=== PATIENT | female | born 1970 | race Hispanic/Latino ===

== ENCOUNTER 2017-04-01 07:01 | Inpatient (IN) | payer MEDICARE ==
--- NOTE | 2017-04-01 07:39 | C.PDOC ---
History Of Present Illness Patient with a PMHx of HIV and IVDA, reports 4-5 week history of wounds to the bilateral lower extremities. The patient reports that she injected heroin in the legs and developed painful draining wounds afterwards. Denies fever, trauma , travel. Time Seen by Provider: 04/01/17 07:34 Chief Complaint (Nursing): Abnormal Skin Integrity History Per: Patient History/Exam Limitations: no limitations Onset/Duration Of Symptoms: Days Current Symptoms Are (Timing): Still Present Past Medical History Reviewed: Historical Data, Nursing Documentation, Vital Signs Vital Signs: Last Vital Signs Temp 98.2 F 04/01/17 15:30 Pulse 64 04/01/17 15:30 Resp 20 04/01/17 15:30 BP 126/77 04/01/17 15:30 Pulse Ox 98 04/01/17 15:30 - Medical History PMH: Anxiety, Bronchitis, HIV (HIV postive almost 20 yrs), Pneumonia Denies: Chronic Kidney Disease - [facility] Procedures DRAINAGE OF RIGHT LOWER ARM SKIN, EXTERNAL APPROACH (03/01/15) DX ULTRASOUND NEC (06/14/14) MEDS MGMT FOR SUBSTANCE ABUSE TREATMENT, METHADONE MAINT (03/01/15) OTHER SKIN & SUBQ I D (06/14/14) Family History: States: No Known Family Hx - Social History Hx Tobacco Use: Yes Hx Alcohol Use: Yes Hx Substance Use: Yes (Cocaine,Heroin) - Immunization History Hx Tetanus Toxoid Vaccination: No Hx Influenza Vaccination: No Hx Pneumococcal Vaccination: No Review Of Systems Except As Marked, All Systems Reviewed And Found Negative. Constitutional: Negative for: Fever Respiratory: Negative for: Shortness of Breath Gastrointestinal: Negative for: Nausea, Vomiting Skin: Positive for: Other (wounds to B/L lower extremities). Negative for: Rash Neurological: Negative for: Weakness, Numbness Physical Exam - Physical Exam Appears: Non-toxic, No Acute Distress Skin: Warm, Dry, No Rash Head: Atraumatic, Normacephalic Eye(s): bilateral: Normal Inspection, PERRL, EOMI Oral Mucosa: Moist Neck: Normal ROM, Supple Chest: Symmetrical Cardiovascular: Rhythm Regular, No Friction Rub, No Murmur Respiratory: Normal Breath Sounds, No Accessory Muscle Use, No Wheezing Gastrointestinal/Abdominal: Soft, No Tenderness Extremity: Capillary Refill (<2 seconds), No Deformity, Other (Right lower extremity: medial ankle with 105cm wound, foul smelling, draining with purulent material. (+)erythema, (+)swelling, (+)tenderness, (+)nechrotic tissue with tunneling. Left lower extremity: 11x6cm wound to the left posterioir calf, foul smelling, draining with purulent material. (+)erythema, (+)swelling, (+) tenderness, (+)nechrotic tissue with tunneling. ) Pulses: Left Dorsalis Pedis: Normal, Right Dorsalis Pedis: Normal Neurological/Psych: Oriented x3, Normal Speech, Normal Motor, Normal Sensation Gait: Steady ED Course And Treatment - Laboratory Results Result Diagrams: 04/01/17 08:16 04/01/17 08:16 O2 Sat by Pulse Oximetry: 100 (on RA) Pulse Ox Interpretation: Normal Medical Decision Making Medical Decision Making: Plan: * VBG * CMP * CBC, ESR * XR: Tib/Fib * Morphine, Toradol * Blood Culture * Reassess and Disposition blood and wound cultures collected. Zosyn and Vancomycin IV ordered. Case discussed with Dr Peck. Agrees with plan and states to discuss case w/ Enrique Juarez. 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 I have reviewed the chart and agree that the record accurately reflects my personal performance of the history, physical exam, medical decision making, and the department course for this patient. I have also personally directed, reviewed, and agree with the discharge instructions and disposition.
[2017-04-01 08:24] LABS: BASO % 0.2 % (0.0-2.0); EOS % 0.1 % (0.0-4.0); HEMOGLOBIN 11.2 g/dL (11.0-16.0); LYMPH # 0.9 K/uL (1.0-4.3); LYMPH % 15.9 % (20.0-40.0); MEAN CELL VOLUME 80.6 fL (81.0-99.0); MEAN CORPUSCULAR HEMOGLOBIN 27.5 pg (27.0-31.0); MEAN CORPUSCULAR HGB CONC 34.1 g/dL (33.0-37.0); MONO # 0.3 K/uL (0.0-0.8); MONO % 4.6 % (0.0-10.0); NEUT # 4.7 K/uL (1.8-7.0); NEUT % 79.2 % (50.0-75.0); RBC 4.1 Mil/uL (3.80-5.20); RED CELL DISTRIBUTION WIDTH 18.1 % (11.5-14.5); WHITE BLOOD COUNT 5.9 K/uL (4.8-10.8)
[2017-04-01 08:27] LABS: VENOUS BLOOD GAS BASE EXCESS 7.6 mmol/L (0.0-2.0); VENOUS BLOOD GAS PCO2 52 mmHg (40-60); VENOUS BLOOD GAS PO2 18 mm/Hg (30-55); VENOUS BLOOD PH 7.42 (7.32-7.43)
[2017-04-01] MEDS ORDERED: Morphine 4 MG/ML VIAL ONE (08:28)
--- NOTE | 2017-04-01 08:28 | RAD ---
PROCEDURE: Radiographs of the bilateral Tibiae and Fibulae. HISTORY: bilateral wound to the tib/fib, r/o foreign body COMPARISON: None available. TECHNIQUE: Frontal and lateral views obtained. FINDINGS: BONES: RIGHT TIBIA: No fracture or destructive lesion. LEFT TIBIA: No fracture or destructive lesion. JOINT SPACES: RIGHT TIBIA: Normal. LEFT TIBIA: Normal. SOFT TISSUES: RIGHT TIBIA: Normal. LEFT TIBIA: There is a soft tissue wound along the distal medial aspect of the left lower extremity. No radiopaque foreign body is identified. OTHER FINDINGS: None. IMPRESSION: Cutaneous wound along distal medial left lower extremity. No radiopaque foreign body. No acute fracture.
[2017-04-01 08:45] LABS: ALBUMIN 3.7 g/dL (3.5-5.0); ALT/SGPT 20 U/L (9-52); AST/SGOT 29 U/L (14-36); BLOOD UREA NITROGEN 6 mg/dL (7-17); CALCIUM 8.4 mg/dl (8.6-10.4); GFR AFRICAN-AMERICAN > 60; GFR NON-AFRICAN AMERICAN > 60
[2017-04-01 08:59] LABS: ALB/GLOB RATIO 0.5 (1.0-2.1)
[2017-04-01] MEDS ORDERED: Sodium Chloride 0.9% 1,000 ML IV ONE (09:27)
[2017-04-01] MEDS ORDERED: Sodium Chloride 0.9% 1,000 ML ONE (10:08)
[2017-04-01] MEDS ORDERED: Piperacillin/Tazobact 3.375 gm 100 ML IV STA (10:27)
[2017-04-01] MEDS ORDERED: Piperacill/Tazo 3.375gm in Dex 3.375 GM/50 ML BAG IVPB ONE (10:45)
[2017-04-01] MEDS ORDERED: Vancomycin 1 gm/NS 200 ml 1 GM/200 ML BAG IVPB ONE (11:00)
[2017-04-01] MEDS ORDERED: HYDROmorphone 1 mg/ml ISec IVP STA (12:06)
--- NOTE | 2017-04-01 17:49 | CP.PCM.CON ---
History of Present Illness - History of Present Illness History of Present Illness: Patient with a PMHx of HIV and IVDA, reports 4-5 week history of wounds to the bilateral lower extremities. The patient reports that she injected heroin in the legs and developed painful draining wounds afterwards. Denies fever, trauma , travel. t cells unknown off hiv meds + hx MRSA in past COPD - Medical History PMH: Anxiety, Bronchitis, HIV (HIV postive almost 20 yrs), Pneumonia Denies: Chronic Kidney Disease - [facility] Procedures DRAINAGE OF RIGHT LOWER ARM SKIN, EXTERNAL APPROACH (03/01/15) DX ULTRASOUND NEC (06/14/14) MEDS MGMT FOR SUBSTANCE ABUSE TREATMENT, METHADONE MAINT (03/01/15) OTHER SKIN & SUBQ I D (06/14/14) Review of Systems - Review of Systems All systems: reviewed and no additional remarkable complaints except - Constitutional Constitutional: As Per HPI - EENT Eyes: absent: As Per HPI, Blind Spots, Blurred Vision, Change in Vision, Decreased Night Vision, Diplopia, Discharge, Dry Eye, Exophthalmos, Floaters, Irritation, Itchy Eyes, Loss of Peripheral Vision, Pain, Photophobia, Requires Corrective Lenses, Sees Flashes, Spots in Vision, Tunnel Vision, Other Visual Disturbances, Loss of Vision, Other Ears: absent: As Per HPI, Decreased Hearing, Ear Discharge, Ear Pain, Tinnitus, Abnormal Hearing, Disequilibrium, Dizziness, Other Nose/Mouth/Throat: absent: As Per HPI, Epistaxis, Nasal Congestion, Nasal Discharge, Nasal Obstruction, Nasal Trauma, Nose Pain, Post Nasal Drip, Sinus Pain, Sinus Pressure, Bleeding Gums, Change in Voice, Dental Pain, Dry Mouth, Dysphagia, Halitosis, Hoarsness, Lip Swelling, Mouth Lesions, Mouth Pain, Odynophagia, Sore Throat, Throat Swelling, Tongue Swelling, Facial Pain, Neck Pain, Neck Mass, Other - Breasts Breasts: absent: As Per HPI, Change in Shape, Mass, Pain, Nipple Discharge, Nipple Inversion, Skin Changes, Swelling, Other - Cardiovascular Cardiovascular: absent: As Per HPI, Acrocyanosis, Chest Pain, Chest Pain at Rest , Chest Pain with Activity, Claudication, Diaphoresis, Dyspnea, Dyspnea on Exertion, Edema, Irregular Heart Rhythm, Pain Radiating to Arm/Neck/Jaw, Leg Edema, Leg Ulcers, Lightheadedness, Orthopnea, Palpitations, Paroxysmal Nocturnal Dyspnea, Pedal Edema, Radiating Pain, Rapid Heart Rate, Slow Heart Rate, Syncope, Other - Respiratory Respiratory: absent: As Per HPI, Cough, Dyspnea, Hemoptysis, Dyspnea on Exertion , Wheezing, Snoring, Stridor, Pain on Inspiration, Chest Congestion, Excessive Mucous Production, Change in Mucous Color, Pain with Coughing, Other - Gastrointestinal Gastrointestinal: absent: As Per HPI, Abdominal Pain, Belching, Bloating, Change in Bowel Habits, Change in Stool Character, Coffee Ground Emesis, Constipation, Cramping, Diarrhea, Dyspepsia, Dysphagia, Early Satiety, Excessive Flatus, Fecal Incontinence, Heartburn, Hematemesis, Hematochezia, Loose Stools, Melena, Nausea, Odynophagia, Temesmus, Vomiting, Other - Genitourinary Genitourinary: absent: As Per HPI, Change in Urinary Stream, Difficulty Urinating, Dysuria, Flank Pain, Hematuria, Pyuria, Nocturia, Urinary Incontinence, Urinary Frequency, Urinary Hesitance, Urinary Urgency, Voiding Freq/Small Amts, Freq UTI, Hx Renal/Bladder Calculi, Hx /Renal Surgery, Bladder Distension, Other - Reproductive: Female Reproductive:Female: absent: As Per HPI, Amenorrhea, Amenorrhea/ Control, Currently Menstual, Cycle <21 Days, Cycle >35 Days, Cycle Variable, Menses 1-7 Days, Menses >/= 8 Days, Menses Variable, Cycle > 4 Weeks Between, No Menses for 6 Months, Heavy Menses, Light Menses, Normal Menses, Spotting Between Cycles , S/P Hysterectomy, Menopausal, Post Menopausal, Premenarche, Abnormal Vaginal Bleeding, Dysmenorrhea, Dyspareunia, Genital Lesions, Genital Pruritis, Pelvic Pain, Prolapse Symptoms, Sexual Dysfunction, Vaginal Discharge, Vaginal Dryness , Vaginal Odor, Vaginal Pruritis, Other - Menstruation Menstruation: absent: As Per HPI, Amenorrhea, Amenorrhea/ Control, Currently Menstual, Cycle <21 Days, Cycle >35 Days, Cycle Variable, Menses 1-7 Days, Menses >/= 8 Days, Menses Variable, Cycle > 4 Weeks Between, No Menses for 6 Months, Heavy Menses, Light Menses, Normal Menses, Spotting Between Cycles , S/P Hysterectomy, Menopausal, Post Menopausal, Premenarche, Abnormal Vaginal Bleeding, Dysmenorrhea, Other - Musculoskeletal Musculoskeletal: As Per HPI - Integumentary Integumentary: absent: As Per HPI, Acne, Alopecia, Bleeding Lesions, Change in Hair, Change in Nails, Change in Pigmentation, Changing Lesions, Dry Skin, Erythema, Furuncle, Hirsutism, Lesions, New Lesions, Non-Healing Lesions, Photosensitivity, Pruritus, Rash, Skin Pain, Skin Ulcer, Sores, Striae, Swelling , Unusual Bruising, Wounds, Jaundice, Other - Neurological Neurological: As Per HPI - Psychiatric Psychiatric: absent: As Per HPI, Abnormal Sleep Pattern, Anhedonia, Anxiety, Auditory Hallucinations, Behavioral Changes, Change in Appetite, Change in Libido, Confusion, Depression, Difficulty Concentrating, Hallucinations, Homicidal Ideation, Hopelessness, Irritability, Memory Loss, Mood Swings, Panic Attacks, Paranoia, Suicidal Ideation, Visual Hallucinations, Tactile Hallucinations, Other Past Patient History - Past Medical History & Family History Past Medical History?: Yes - Past Social History Smoking Status: Never Smoked - CARDIAC Hx Cardiac Disorders: No - PULMONARY Hx Bronchitis: Yes Hx Pneumonia: Yes - NEUROLOGICAL Hx Neurological Disorder: No - HEENT Hx HEENT Problems: No - RENAL Hx Chronic Kidney Disease: No - ENDOCRINE/METABOLIC Hx Endocrine Disorders: No - HEMATOLOGICAL/ONCOLOGICAL Hx Human Immunodeficiency Virus (HIV): Yes (HIV postive almost 20 yrs) - INTEGUMENTARY Hx Dermatological Problems: No - MUSCULOSKELETAL/RHEUMATOLOGICAL Hx Musculoskeletal Disorders: Yes Hx Falls: No - GASTROINTESTINAL Hx Gastrointestinal Disorders: Yes Hx Clostridium Difficile: Yes Hx Diarrhea: Yes - GENITOURINARY/GYNECOLOGICAL Hx Genitourinary Disorders: No - PSYCHIATRIC Hx Anxiety: Yes Hx Substance Use: Yes (Cocaine,Heroin) - SURGICAL HISTORY Hx Surgeries: No Other/Comment: DENIES - ANESTHESIA Hx Anesthesia: No Hx Anesthesia Reactions: No Hx Malignant Hyperthermia: No Meds Allergies/Adverse Reactions: Allergies Allergy/AdvReac Type Severity Reaction Status Date / Time No Known Allergies Allergy Verified 09/17/14 21:28 - Medications Medications: Current Medications Enoxaparin Sodium (Lovenox) 40 mg SC DAILY CHADD Hydromorphone HCl (Dilaudid) 1 mg IVP Q6H PRN PRN Reason: Pain, moderate (4-7) Piperacillin Sod/Tazobactam Sod (Zosyn 3.375 Gm Iv Premix) 3.375 gm in 50 mls @ 100 mls/hr IVPB Q8H CHADD Physical Exam - Constitutional Appears: Cachectic, Chronically Ill - Head Exam Head Exam: NORMOCEPHALIC - Eye Exam Eye Exam: PERRL. absent: Scleral icterus - ENT Exam ENT Exam: Mucous Membranes Dry - Neck Exam Neck exam: Negative for: Lymphadenopathy - Respiratory Exam Respiratory Exam: Decreased Breath Sounds, Clear to Auscultation Bilateral - Cardiovascular Exam Cardiovascular Exam: REGULAR RHYTHM, +S1, +S2 - GI/Abdominal Exam GI & Abdominal Exam: Diminished Bowel Sounds, Soft. absent: Tenderness - Rectal Exam Rectal Exam: Deferred - Exam Exam: NORMAL INSPECTION - Extremities Exam Extremities exam: Positive for: pedal edema, tenderness, pedal pulses present. Negative for: calf tenderness Additional comments: multiple wounds to both lower extrem - Back Exam Back exam: absent: CVA tenderness (L), CVA tenderness (R) - Neurological Exam Neurological exam: Alert, CN II-XII Intact, Oriented x3, Reflexes Normal - Psychiatric Exam Psychiatric exam: Normal Mood - Skin Skin Exam: Dry Results - Vital Signs Recent Vital Signs: Last Vital Signs Temp 98.2 F 04/01/17 15:30 Pulse 64 04/01/17 15:30 Resp 20 04/01/17 15:30 BP 126/77 04/01/17 15:30 Pulse Ox 100 04/01/17 17:46 - Labs Result Diagrams: 04/01/17 08:16 04/01/17 08:16 Labs: Laboratory Results - last 24 hr 04/01/17 04/01/17 04/01/17 08:16 08:16 08:24 WBC 5.9 RBC 4.10 Hgb 11.2 D Hct 33.0 L MCV 80.6 L D MCH 27.5 MCHC 34.1 RDW 18.1 H Plt Count 619 H D MPV 7.0 L Neut % (Auto) 79.2 H Lymph % (Auto) 15.9 L [place] % (Auto) 4.6 Eos % (Auto) 0.1 Baso % (Auto) 0.2 Neut # 4.7 Lymph # 0.9 L [place] # 0.3 Eos # 0.0 Baso # 0.0 Differential Comment ESR 104 H pO2 18 L VBG pH 7.42 VBG pCO2 52 VBG HCO3 29.0 VBG Total CO2 35.3 H VBG O2 Sat (Calc) 30.3 L VBG Base Excess 7.6 H VBG Potassium 3.2 L Glucose 71 Lactate 2.3 H Sodium 139 145.0 Potassium 3.4 L Chloride 95 L 109.0 H Carbon Dioxide 35 H Anion Gap 13 BUN 6 L Creatinine 0.6 L Est GFR ( Amer) > 60 Est GFR (Non-Af Amer) > 60 Random Glucose 83 Calcium 8.4 L Total Bilirubin 0.5 AST 29 ALT 20 Alkaline Phosphatase 134 H Total Protein 11.8 H Albumin 3.7 Globulin 8.1 H Albumin/Globulin Ratio 0.5 L Venous Blood Potassium 3.2 L Assessment & Plan (1) Cellulitis of leg Status: Acute (2) IVDU (intravenous drug user) Status: Acute (3) 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
[2017-04-01] MEDS: Tmp-Smz 800 mg-160 mg DS Tab PO SCH (18:43)
--- NOTE | 2017-04-01 19:50 | CP.PCM.HP ---
Past Patient History - Past Medical History & Family History Past Medical History?: Yes - Past Social History Smoking Status: Never Smoked - CARDIAC Hx Cardiac Disorders: No - PULMONARY Hx Bronchitis: Yes Hx Pneumonia: Yes - NEUROLOGICAL Hx Neurological Disorder: No - HEENT Hx HEENT Problems: No - RENAL Hx Chronic Kidney Disease: No - ENDOCRINE/METABOLIC Hx Endocrine Disorders: No - HEMATOLOGICAL/ONCOLOGICAL Hx Human Immunodeficiency Virus (HIV): Yes (HIV postive almost 20 yrs) - INTEGUMENTARY Hx Dermatological Problems: No - MUSCULOSKELETAL/RHEUMATOLOGICAL Hx Musculoskeletal Disorders: Yes Hx Falls: No - GASTROINTESTINAL Hx Gastrointestinal Disorders: Yes Hx Clostridium Difficile: Yes Hx Diarrhea: Yes - GENITOURINARY/GYNECOLOGICAL Hx Genitourinary Disorders: No - PSYCHIATRIC Hx Anxiety: Yes Hx Substance Use: Yes (Cocaine,Heroin) - SURGICAL HISTORY Hx Surgeries: No Other/Comment: DENIES - ANESTHESIA Hx Anesthesia: No Hx Anesthesia Reactions: No Hx Malignant Hyperthermia: No Meds Allergies/Adverse Reactions: Allergies Allergy/AdvReac Type Severity Reaction Status Date / Time No Known Allergies Allergy Verified 09/17/14 21:28 Physical Exam - Constitutional Appears: Well - Head Exam Head Exam: ATRAUMATIC, NORMAL INSPECTION, NORMOCEPHALIC - Eye Exam Eye Exam: EOMI, Normal appearance, PERRL Pupil Exam: NORMAL ACCOMODATION, PERRL - ENT Exam ENT Exam: Mucous Membranes Moist, Normal Exam - Neck Exam Neck exam: Positive for: Normal Inspection - Respiratory Exam Respiratory Exam: Decreased Breath Sounds - Cardiovascular Exam Cardiovascular Exam: REGULAR RHYTHM, +S1, +S2 - GI/Abdominal Exam GI & Abdominal Exam: Diminished Bowel Sounds, Soft - Rectal Exam Rectal Exam: Deferred Results - Vital Signs Recent Vital Signs: Last Vital Signs Temp 98.2 F 04/01/17 15:30 Pulse 64 04/01/17 15:30 Resp 20 04/01/17 15:30 BP 126/77 04/01/17 15:30 Pulse Ox 100 04/01/17 17:46 - Labs Result Diagrams: 04/01/17 08:16 04/01/17 08:16 Labs: Laboratory Results - last 24 hr 04/01/17 04/01/17 04/01/17 08:16 08:16 08:24 WBC 5.9 RBC 4.10 Hgb 11.2 D Hct 33.0 L MCV 80.6 L D MCH 27.5 MCHC 34.1 RDW 18.1 H Plt Count 619 H D MPV 7.0 L Neut % (Auto) 79.2 H Lymph % (Auto) 15.9 L [place] % (Auto) 4.6 Eos % (Auto) 0.1 Baso % (Auto) 0.2 Neut # 4.7 Lymph # 0.9 L [place] # 0.3 Eos # 0.0 Baso # 0.0 Differential Comment ESR 104 H pO2 18 L VBG pH 7.42 VBG pCO2 52 VBG HCO3 29.0 VBG Total CO2 35.3 H VBG O2 Sat (Calc) 30.3 L VBG Base Excess 7.6 H VBG Potassium 3.2 L Glucose 71 Lactate 2.3 H Sodium 139 145.0 Potassium 3.4 L Chloride 95 L 109.0 H Carbon Dioxide 35 H Anion Gap 13 BUN 6 L Creatinine 0.6 L Est GFR ( Amer) > 60 Est GFR (Non-Af Amer) > 60 Random Glucose 83 Calcium 8.4 L Total Bilirubin 0.5 AST 29 ALT 20 Alkaline Phosphatase 134 H Total Protein 11.8 H Albumin 3.7 Globulin 8.1 H Albumin/Globulin Ratio 0.5 L Venous Blood Potassium 3.2 L
[2017-04-01] MEDS: Piperacill/Tazo 3.375gm in Dex 3.375 GM/50 ML BAG IVPB SCH (23:00)
[2017-04-02] MEDS: Tmp-Smz 800 mg-160 mg DS Tab PO SCH ×2 (05:15→17:50)
[2017-04-02] MEDS: Piperacill/Tazo 3.375gm in Dex 3.375 GM/50 ML BAG IVPB SCH ×3 (05:15→22:31)
[2017-04-02 07:58] LABS: BASO % 0.2 % (0.0-2.0); HEMOGLOBIN 9.7 g/dL (11.0-16.0); LYMPH # 0.5 K/uL (1.0-4.3); LYMPH % 8.2 % (20.0-40.0); MEAN CELL VOLUME 79.9 fL (81.0-99.0); MEAN CORPUSCULAR HEMOGLOBIN 27.3 pg (27.0-31.0); MEAN CORPUSCULAR HGB CONC 34.1 g/dL (33.0-37.0); MEAN PLATELET VOLUME 7.1 fL (7.2-11.7); MONO # 0.3 K/uL (0.0-0.8); MONO % 4.8 % (0.0-10.0); NEUT # 5.5 K/uL (1.8-7.0); NEUT % 86.8 % (50.0-75.0); PLATELET COUNT 597 K/uL (130-400); RBC 3.57 Mil/uL (3.80-5.20); RED CELL DISTRIBUTION WIDTH 17.7 % (11.5-14.5); WHITE BLOOD COUNT 6.3 K/uL (4.8-10.8)
[2017-04-02] MEDS: Potassium Chloride 10 mEq ER Tab PO SCH (08:50)
[2017-04-02 08:59] LABS: MONOCYTE 4 % (0-10); TOTAL CELLS COUNTED 100
[2017-04-02 09:00] LABS: ALB/GLOB RATIO 0.5 (1.0-2.1); ALBUMIN 3.4 g/dL (3.5-5.0); ALT/SGPT < 6 U/L (9-52); ANISOCYTOSIS SLIGHT; AST/SGOT 29 U/L (14-36); BLOOD UREA NITROGEN 6 mg/dL (7-17); CALCIUM 8.1 mg/dl (8.6-10.4); GFR AFRICAN-AMERICAN > 60; GFR NON-AFRICAN AMERICAN > 60; HYPOCHROMIC SLIGHT; LYMPHOCYTE 10 % (20-40); NEUTROPHIL 86 % (50-75); PLATELET ESTIMATE INCREASED (NORMAL); POIKILOCYTOSIS SLIGHT
[2017-04-02 09:01] LABS: BURR CELLS SLIGHT; LARGE PLATELETS PRESENT; MICROCYTOSIS SLIGHT; TARGET CELLS SLIGHT; TEARDROP CELLS SLIGHT
[2017-04-02 09:02] LABS: HEPATITIS B SURFACE AG NEGATIVE (NEGATIVE); POLYCHROMIC SLIGHT
[2017-04-02 09:03] LABS: OVALOCYTES SLIGHT
[2017-04-02 09:08] LABS: HEPATITIS A IGM NEGATIVE (NEGATIVE); HEPATITIS B CORE AB Negative (NEGATIVE)
[2017-04-02 09:19] LABS: HEPATITIS C ANTIBODY Negative (NEGATIVE)
[2017-04-02] MEDS: Enoxaparin 40 mg Syringe SC SCH (09:41)
--- NOTE | 2017-04-02 11:51 | PCM.PSYCH ---
Initial Psychiatric Evaluation - Initial Psychiatric Evaluation Type of Admission: Voluntary Chief Complaint (in patient's own words): " I am not feeling well" History of Present Illness and Precipitating Events: The patient was seen, the chart was reviewed and the case was discussed. Patient is a 46 year old female with PMHx of HIV (uncontrolled), opiate dependence, and previous abscesses, who presents to the ED with bilateral lower extremities and was admitted with diagnosis cellulitis. Psychiatry consult was placed due to patient's history of substance use and withdrawal. 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 Patient reports that she has been using heroin for many years and cannot recall for how long, using 40-50 bags daily via IV and intranasal. Patient also reports to using cocaine for many years intranasal and IV; using a couple grams. Patient last use heroin yesterday approximately 40-50 bags. Patient has been to many detox programs before and has been to rehabilitation 3-4x. Patient states she has used methadone and suboxone before. Patient admits to [facility] for 20 years and using a nicotine patch during this admission Patient denies EtOH During the encounter, patient admits to nausea, vomiting, diarrhea and denies hallucination and suicidal ideation and admits to being depressed Past Psych Hx: Anxiety Past medical History:Bronchitis, HIV (HIV postive almost 20 yrs), Pneumonia, LE cellulitis Family Psych Hx: Denies Current Medications: Active Medications Generic Name Dose Route Start Last Admin Trade Name Freq PRN Reason Stop Dose Admin Enoxaparin Sodium 40 mg 04/02/17 10:00 04/02/17 09:41 Lovenox SC 40 mg DAILY CHADD Administration Hydromorphone HCl 1 mg 04/01/17 16:10 04/02/17 09:39 Dilaudid IVP 1 mg Q6H PRN Administration Pain, moderate (4-7) Piperacillin Sod/Tazobactam Sod 3.375 gm in 50 mls @ 100 mls/hr 04/01/17 22: 00 04/02/17 05:15 Zosyn 3.375 Gm Iv Premix IVPB 100 mls/hr Q8H CHADD Administration Nicotine 1 patch 04/01/17 19:00 04/02/17 09:41 Nicoderm Cq TD 1 patch DAILY CHADD Administration Pantoprazole Sodium 40 mg 04/02/17 10:00 04/02/17 09:41 Protonix Inj IVP 40 mg DAILY CHADD Administration Potassium Chloride 10 meq 04/02/17 08:00 04/02/17 08:50 Klor-Con 10 PO 10 meq BRK CHADD Administration Trimethoprim/Sulfamethoxazole 1 tab 04/01/17 18:00 04/02/17 05:15 Bactrim Ds Tab PO 1 tab Q12H CHADD Administration Past Psychiatric History - Past Psychiatric History Previous Treatment History: Inpatient Pertinent Medical Hx (Current Medical&Sleep Prob, Allergies): Allergies Allergy/AdvReac Type Severity Reaction Status Date / Time No Known Allergies Allergy Verified 09/17/14 21:28 No Known Home Med 04/01/17 Review of Systems - Constitutional Constitutional: Chills - Neurological Neurological: Headaches - Psychiatric Psychiatric: Anxiety, Depression. absent: Auditory Hallucinations, Hallucinations, Homicidal Ideation, Suicidal Ideation, Visual Hallucinations, Tactile Hallucinations Mental Status Examination - Personal Presentation Personal Presentation: Looks stated age - Affect Affect: Depressed - Motor Activity Motor Activity: Calm - Reliability in Providing Information Reliability in Providing Information: Fair - Speech Speech: Organized - Mood Mood: Depressed, Anxious - Formal Thought Process Formal Thought Process: No Impairment - Obsessions/Compulsions Obsessions: No Compulsions: No - Cognitive Functions Orientation: Person, Place, Situation Sensorium: Alert Attention/Concentration: Attentive Judgement: Imparied, as evidence by: Lack of insight into illness - Risk Risk: Withdrawal - Strength & Assets Inventory Strength & Assets Inventory: Cooperative - Limitations Limitations: Living alone DSM 5 DX - DSM 5 DSM 5 Diagnosis: Opioid withdrawal Opiate dependence Cocaine use---> Disorder - Recommended/Plan of Treatment Treatment Recommendations and Plan of Treatment: Witholding methadone as patient is on IV dilaudid Will add medications as needed Tobacco use: Nicotine patch Psych education Supportive psychotherapy Upon discharge, patient wants to go to methadone or suboxone outpatient - Smoking Cessation Smoking Cessation Initiated: Yes
--- NOTE | 2017-04-02 12:45 | CP.PCM.CON ---
History of Present Illness - History of Present Illness History of Present Illness: 46 yo female patient with a PMHx of HIV and IVDA was seen at bedside after request for podiatry consultation concerning bilateral lower extremity wounds. Patient reports 4-5 week history of open wounds to Right foot and Left leg which started after using needle for heroin injection. Patient denies of any other trauma. She states that pain was unbearable and decided to come to hospital, but does not have clear answer as to why she waited so long to seek medical attention. Patient was being treated by Dr. Peck for HIV. Patient complains of severe pain to right foot ulceration site. Patient admits use of recreational drug for many years 20+. Patient denies of any metal implants in her body. Patient denies of any N/V/F/C or SOB today. Review of Systems - Constitutional Constitutional: As Per HPI Past Patient History - Past Medical History & Family History Past Medical History?: Yes - Past Social History Smoking Status: Never Smoked - CARDIAC Hx Cardiac Disorders: No - PULMONARY Hx Bronchitis: Yes Hx Pneumonia: Yes - NEUROLOGICAL Hx Neurological Disorder: No - HEENT Hx HEENT Problems: No - RENAL Hx Chronic Kidney Disease: No - ENDOCRINE/METABOLIC Hx Endocrine Disorders: No - HEMATOLOGICAL/ONCOLOGICAL Hx Human Immunodeficiency Virus (HIV): Yes (HIV postive almost 20 yrs) - INTEGUMENTARY Hx Dermatological Problems: No - MUSCULOSKELETAL/RHEUMATOLOGICAL Hx Musculoskeletal Disorders: Yes Hx Falls: No - GASTROINTESTINAL Hx Gastrointestinal Disorders: Yes Hx Clostridium Difficile: Yes Hx Diarrhea: Yes - GENITOURINARY/GYNECOLOGICAL Hx Genitourinary Disorders: No - PSYCHIATRIC Hx Anxiety: Yes Hx Substance Use: Yes (Cocaine,Heroin) - SURGICAL HISTORY Hx Surgeries: No Other/Comment: DENIES - ANESTHESIA Hx Anesthesia: No Hx Anesthesia Reactions: No Hx Malignant Hyperthermia: No Meds Allergies/Adverse Reactions: Allergies Allergy/AdvReac Type Severity Reaction Status Date / Time No Known Allergies Allergy Verified 09/17/14 21:28 - Medications Medications: Current Medications Enoxaparin Sodium (Lovenox) 40 mg SC DAILY [facility] Last Admin: 04/02/17 09:41 Dose: 40 mg Hydromorphone HCl (Dilaudid) 1 mg IVP Q6H PRN PRN Reason: Pain, moderate (4-7) Last Admin: 04/02/17 09:39 Dose: 1 mg Piperacillin Sod/Tazobactam Sod (Zosyn 3.375 Gm Iv Premix) 3.375 gm in 50 mls @ 100 mls/hr IVPB Q8H [facility] Last Admin: 04/02/17 05:15 Dose: 100 mls/hr Nicotine (Nicoderm Cq) 1 patch TD DAILY [facility] Last Admin: 04/02/17 09:41 Dose: 1 patch Pantoprazole Sodium (Protonix Inj) 40 mg IVP DAILY [facility] Last Admin: 04/02/17 09:41 Dose: 40 mg Potassium Chloride (Klor-Con 10) 10 meq PO BRK [facility] Last Admin: 04/02/17 08:50 Dose: 10 meq Trimethoprim/Sulfamethoxazole (Bactrim Ds Tab) 1 tab PO Q12H [facility] Last Admin: 04/02/17 05:15 Dose: 1 tab Physical Exam - Constitutional Appears: Well, Non-toxic, No Acute Distress - Extremities Exam Additional comments: Bilateral lower extremity exam DERM: RIGHT: Open wound noted to dorsum of right mid-foot measuring 10cm x 7cm x 1cm with mostly fibrotic base. Purulent drainage is noted. Probes to bone. Mal-odor is present. Erythema is present around the wound <2cm margins. LEFT: Open wound noted to anterior aspect of left mid-leg covered with dried scab. Scab measuring 9cm x 6cm. No drainage is noted. No probes to bone. Mal- odor is present. Erythema is present around the wound <2cm margins. VASC: Palpable DP and PT noted 2/4 bilaterally. LONGITUDINAL FLOAT OPERATOR less than 3 seconds noted to all digits bilaterally. ORTHO: Pain on palpation to right foot and left leg. ROM decreased bilaterally distal to knee secondary to guarding. NEURO: Gross sensation nintact bilaterally, tested multiple points in plantar foot with [place] Italo Monofilament. - Neurological Exam Neurological exam: Alert, Oriented x3 - Psychiatric Exam Psychiatric exam: Normal Affect, Normal Mood - Skin Skin Exam: Normal Color, Warm Results - Vital Signs Recent Vital Signs: Last Vital Signs Temp 98.1 F 04/02/17 07:37 Pulse 61 04/02/17 07:37 Resp 20 04/02/17 07:37 BP 124/77 04/02/17 07:37 Pulse Ox 100 04/02/17 07:37 - Labs Result Diagrams: 04/02/17 07:30 04/02/17 07:30 Labs: Laboratory Results - last 24 hr 04/02/17 04/02/17 04/02/17 07:30 07:30 07:30 WBC 6.3 RBC 3.57 L Hgb 9.7 L Hct 28.5 L MCV 79.9 L MCH 27.3 MCHC 34.1 RDW 17.7 H Plt Count 597 H MPV 7.1 L Neut % (Auto) 86.8 H Lymph % (Auto) 8.2 L [place] % (Auto) 4.8 Eos % (Auto) 0.0 Baso % (Auto) 0.2 Neut # 5.5 Lymph # 0.5 L [place] # 0.3 Eos # 0.0 Baso # 0.0 Neutrophils % (Manual) 86 H Lymphocytes % (Manual) 10 L Monocytes % (Manual) 4 Platelet Estimate Increased H Large Platelets Present Polychromasia Slight Hypochromasia (manual) Slight Poikilocytosis (manual Slight Anisocytosis (manual) Slight Microcytosis (manual) Slight Macrocytosis (manual) Slight Target Cells Slight Tear Drop Cells Slight Ovalocytes Slight Z[place]a Cells Slight Sodium 133 Potassium 3.7 Chloride 96 L Carbon Dioxide 31 H Anion Gap 10 BUN 6 L Creatinine 0.7 Est GFR ( Amer) > 60 Est GFR (Non-Af Amer) > 60 Random Glucose 113 H Calcium 8.1 L Total Bilirubin 0.5 AST 29 ALT < 6 L D Alkaline Phosphatase 102 Total Protein 9.9 H Albumin 3.4 L Globulin 6.5 H Albumin/Globulin Ratio 0.5 L Hepatitis A IgM Ab Negative Hep Bs Antigen Negative Hep B Core IgM Ab Negative Hepatitis C Antibody Negative Assessment & Plan - Assessment and Plan (Free Text) Assessment: 46 yo female patient with non-diabetic open ulceration to bilateral lower extremities with infection. Plan: Patient was seen, evaluated and treated with all questions answered. Labs and vitals reviewed; Afebrile, WBC 6.3 Discussed in detail with Dr. Rodrigues MRI for Right foot ordered Lower extremity Arterial duplex ordered Bilateral lower extremity dressed with Betadine, DSD Continue IV Abx per ID Podiatry will continue to follow in-house
[2017-04-02 13:24] LABS: BARBITURATES, UR NEGATIVE (NEGATIVE); BENZODIAZEPINES, UR NEGATIVE (NEGATIVE); PHENCYCLIDINE, UR NEGATIVE (NEGATIVE)
[2017-04-02 14:16] LABS: OPIATES, UR POSITIVE (NEGATIVE)
--- NOTE | 2017-04-02 17:10 | CP.PCM.PN ---
Subjective - Date & Time of Evaluation Date of Evaluation: 04/02/17 Time of Evaluation: 09:00 - Subjective Subjective: Patient complains of severe pain to right foot ulceration site. Patient admits use of recreational drug for many years 20+. Patient denies of any metal implants in her body. Objective - Vital Signs/Intake and Output Vital Signs (last 24 hours): Temp Pulse Resp BP Pulse Ox 98.2 F 82 20 113/80 98 04/02/17 15:35 04/02/17 15:35 04/02/17 15:35 04/02/17 15:35 04/02/17 15:35 Intake and Output: 04/02/17 04/02/17 06:59 18:59 Intake Total 450 Balance 450 - Medications Medications: Current Medications Enoxaparin Sodium (Lovenox) 40 mg SC DAILY [facility] Last Admin: 04/02/17 09:41 Dose: 40 mg Hydromorphone HCl (Dilaudid) 1 mg IVP Q6H PRN PRN Reason: Pain, moderate (4-7) Last Admin: 04/02/17 09:39 Dose: 1 mg Piperacillin Sod/Tazobactam Sod (Zosyn 3.375 Gm Iv Premix) 3.375 gm in 50 mls @ 100 mls/hr IVPB Q8H [facility] Last Admin: 04/02/17 13:20 Dose: 100 mls/hr Nicotine (Nicoderm Cq) 1 patch TD DAILY [facility] Last Admin: 04/02/17 09:41 Dose: 1 patch Pantoprazole Sodium (Protonix Inj) 40 mg IVP DAILY [facility] Last Admin: 04/02/17 09:41 Dose: 40 mg Potassium Chloride (Klor-Con 10) 10 meq PO BRK [facility] Last Admin: 04/02/17 08:50 Dose: 10 meq Trimethoprim/Sulfamethoxazole (Bactrim Ds Tab) 1 tab PO Q12H [facility] Last Admin: 04/02/17 05:15 Dose: 1 tab - Labs Labs: 04/02/17 07:30 04/02/17 07:30 - Constitutional Appears: Non-toxic, Cachectic, Chronically Ill - Head Exam Head Exam: NORMOCEPHALIC - Eye Exam Eye Exam: PERRL - ENT Exam ENT Exam: Mucous Membranes Dry, Normal External Ear Exam - Neck Exam Neck Exam: absent: Lymphadenopathy - Respiratory Exam Respiratory Exam: Decreased Breath Sounds, Rhonchi - Cardiovascular Exam Cardiovascular Exam: REGULAR RHYTHM, +S1, +S2 - GI/Abdominal Exam GI & Abdominal Exam: Distended, Soft. absent: Tenderness - Rectal Exam Rectal Exam: Deferred - Exam Exam: NORMAL INSPECTION - Extremities Exam Extremities Exam: Pedal Edema, Tenderness. absent: Calf Tenderness Additional comments: Bilateral lower extremity exam DERM: RIGHT: Open wound noted to dorsum of right mid-foot measuring 10cm x 7cm x 1cm with mostly fibrotic base. Purulent drainage is noted. Probes to bone. Mal-odor is present. Erythema is present around the wound <2cm margins. LEFT: Open wound noted to anterior aspect of left mid-leg covered with dried scab. Scab measuring 9cm x 6cm. No drainage is noted. No probes to bone. Mal- odor is present. Erythema is present around the wound <2cm margins. VASC: Palpable DP and PT noted 2/4 bilaterally. CRANE OPERATOR less than 3 seconds noted to all digits bilaterally. ORTHO: Pain on palpation to right foot and left leg. ROM decreased bilaterally distal to knee secondary to guarding. NEURO: Gross sensation nintact bilaterally, tested multiple points in plantar foot with [place] Italo Monofilament. - Back Exam Back Exam: absent: CVA tenderness (L), CVA tenderness (R) Assessment and Plan (1) Cellulitis of leg Status: Acute (2) IVDU (intravenous drug user) Status: Acute (3) Ulcers of both lower legs with necrosis of muscle Status: Acute (4) AIDS (acquired immune deficiency syndrome) Status: Chronic (5) HIV (human immunodeficiency virus infection) Status: Chronic (6) Abscess and cellulitis Status: Acute - Assessment and Plan (Free Text) Assessment: for mri 'may need OR debridement cont IV antibiotics for 6 weeks possible HAART rx
--- NOTE | 2017-04-02 17:30 | CP.PCM.PN ---
Subjective - Date & Time of Evaluation Date of Evaluation: 04/02/17 Time of Evaluation: 09:20 - Subjective Subjective: clinically same Objective - Vital Signs/Intake and Output Vital Signs (last 24 hours): Temp Pulse Resp BP Pulse Ox 98.2 F 82 20 113/80 98 04/02/17 15:35 04/02/17 15:35 04/02/17 15:35 04/02/17 15:35 04/02/17 15:35 Intake and Output: 04/02/17 04/02/17 06:59 18:59 Intake Total 450 Balance 450 - Medications Medications: Current Medications Enoxaparin Sodium (Lovenox) 40 mg SC DAILY [facility] Last Admin: 04/02/17 09:41 Dose: 40 mg Hydromorphone HCl (Dilaudid) 1 mg IVP Q6H PRN PRN Reason: Pain, moderate (4-7) Last Admin: 04/02/17 09:39 Dose: 1 mg Piperacillin Sod/Tazobactam Sod (Zosyn 3.375 Gm Iv Premix) 3.375 gm in 50 mls @ 100 mls/hr IVPB Q8H [facility] Last Admin: 04/02/17 13:20 Dose: 100 mls/hr Nicotine (Nicoderm Cq) 1 patch TD DAILY [facility] Last Admin: 04/02/17 09:41 Dose: 1 patch Pantoprazole Sodium (Protonix Inj) 40 mg IVP DAILY [facility] Last Admin: 04/02/17 09:41 Dose: 40 mg Potassium Chloride (Klor-Con 10) 10 meq PO BRK [facility] Last Admin: 04/02/17 08:50 Dose: 10 meq Trimethoprim/Sulfamethoxazole (Bactrim Ds Tab) 1 tab PO Q12H [facility] Last Admin: 04/02/17 05:15 Dose: 1 tab - Labs Labs: 04/02/17 07:30 04/02/17 07:30
[2017-04-03] MEDS: Tmp-Smz 800 mg-160 mg DS Tab PO SCH ×2 (05:19→17:51)
[2017-04-03] MEDS: Piperacill/Tazo 3.375gm in Dex 3.375 GM/50 ML BAG IVPB SCH ×3 (05:19→21:54)
[2017-04-03] MEDS: Potassium Chloride 10 mEq ER Tab PO SCH (08:12)
[2017-04-03] MEDS: Enoxaparin 40 mg Syringe SC SCH (09:38)
--- NOTE | 2017-04-03 10:07 | VASCLAB ---
PROCEDURE: HISTORY: Non healing open wounds to lower extremities COMPARISON: None available. TECHNIQUE: Grayscale and duplex Doppler evaluation of the bilateral common femoral, femoral, profunda femoral, popliteal, posterior tibial, anterior tibial and dorsalis pedis arteries was performed. Report prepared by KAMALJIT Main FINDINGS: RIGHT LOWER EXTREMITY: * Common Femoral Artery: Peak Systolic Velocity - 61: Doppler Waveform: Triphasic.: Plaque description - * Profunda Femoral Artery: Peak Systolic Velocity - 53: Doppler Waveform: Triphasic.: Plaque description - * Femoral Artery o Proximal Segment: Peak Systolic Velocity - 81: Doppler Waveform: Triphasic.: Plaque description - o Middle Segment: Peak Systolic Velocity - 81: Doppler Waveform: Triphasic.: Plaque description - o Distal Segment: Peak Systolic Velocity - 65: Doppler Waveform: Triphasic.: Plaque description - * Popliteal Artery o Proximal Segment: Peak Systolic Velocity - 54: Doppler Waveform: Triphasic.: Plaque description - o Middle Segment: Peak Systolic Velocity - 69: Doppler Waveform: Triphasic.: Plaque description - o Distal Segment: Peak Systolic Velocity - 97: Doppler Waveform: Triphasic.: Plaque description - * Posterior Tibial Artery: Peak Systolic Velocity - 90: Doppler Waveform: Triphasic.: Plaque description - * Anterior Tibial Artery: Peak Systolic Velocity - 121: Doppler Waveform: Triphasic.: Plaque description - * Peroneal Artery: Peak Systolic Velocity - 52: Doppler Waveform: Triphasic.: Plaque description - LEFT LOWER EXTREMITY: * Common Femoral Artery: Peak Systolic Velocity - 79: Doppler Waveform: Triphasic.: Plaque description - * Profunda Femoral Artery: Peak Systolic Velocity - 47: Doppler Waveform: Triphasic.: Plaque description - * Femoral Artery o Proximal Segment: Peak Systolic Velocity - 82: Doppler Waveform: Triphasic.: Plaque description - o Middle Segment: Peak Systolic Velocity - 94: Doppler Waveform: Triphasic.: Plaque description - o Distal Segment: Peak Systolic Velocity - 59: Doppler Waveform: Triphasic.: Plaque description - * Popliteal Artery o Proximal Segment: Peak Systolic Velocity - 64: Doppler Waveform: Triphasic.: Plaque description - o Middle Segment: Peak Systolic Velocity - 80: Doppler Waveform: Triphasic.: Plaque description - o Distal Segment: Peak Systolic Velocity - 80: Doppler Waveform: Triphasic.: Plaque description - * (proximal) Posterior Tibial Artery: Peak Systolic Velocity - 85: Doppler Waveform: Triphasic.: Plaque description - * (proximal) Anterior Tibial Artery: Peak Systolic Velocity - 66: Doppler Waveform: Triphasic.: Plaque description - - OTHER FINDINGS: Unable to image the left tibial arteries distally, due to open wounds. The remaining major arteries of bilateral lower extremities appear patent, with normal arterial waveforms. IMPRESSION: There is no evidence of hemodynamically significant arterial insufficiency in both lower extremities.
--- NOTE | 2017-04-03 13:07 | CP.PCM.PN ---
Subjective - Date & Time of Evaluation Date of Evaluation: 04/03/17 Time of Evaluation: 11:57 - Subjective Subjective: 46 yo female patient with a PMHx of HIV and IVDA was seen at bedside concerning bilateral lower extremity wounds. Patient was resting comfortably in bed and denies of acute distress. AAO x3. NAD. Patient still complains of pain to Right foot as well as left leg. Patient is regretful that she didn't seek medical attention sooner when she first noticed infection. Patient was advised of podiatry plan of wound debridement with Dr. Rodrigues on 04/07/17Thursday morning. Patient denies of any N/V/F/C or SOB today. Objective - Vital Signs/Intake and Output Vital Signs (last 24 hours): Temp Pulse Resp BP Pulse Ox 98.6 F 67 20 114/79 98 04/03/17 08:17 04/03/17 08:17 04/03/17 08:17 04/03/17 08:17 04/03/17 08:17 - Medications Medications: Current Medications Enoxaparin Sodium (Lovenox) 40 mg SC DAILY [facility] Last Admin: 04/03/17 09:38 Dose: 40 mg Hydromorphone HCl (Dilaudid) 1 mg IVP Q4 PRN PRN Reason: Pain, moderate (4-7) Last Admin: 04/03/17 12:14 Dose: 1 mg Piperacillin Sod/Tazobactam Sod (Zosyn 3.375 Gm Iv Premix) 3.375 gm in 50 mls @ 100 mls/hr IVPB Q8H [facility] Last Admin: 04/03/17 05:19 Dose: 100 mls/hr Nicotine (Nicoderm Cq) 1 patch TD DAILY [facility] Last Admin: 04/03/17 09:38 Dose: 1 patch Pantoprazole Sodium (Protonix Inj) 40 mg IVP DAILY [facility] Last Admin: 04/03/17 09:38 Dose: 40 mg Potassium Chloride (Klor-Con 10) 10 meq PO BRK [facility] Last Admin: 04/03/17 08:12 Dose: 10 meq Trimethoprim/Sulfamethoxazole (Bactrim Ds Tab) 1 tab PO Q12H [facility] Last Admin: 04/03/17 05:19 Dose: 1 tab - Labs Labs: 04/02/17 07:30 04/02/17 07:30 - Constitutional Appears: Well, Non-toxic, No Acute Distress - Head Exam Head Exam: ATRAUMATIC - Extremities Exam Additional comments: Bilateral lower extremity exam DERM: RIGHT: Open wound noted to dorsum of right mid-foot measuring 10cm x 7cm x 1cm with mostly fibrotic base. Purulent drainage is noted. Probes to bone. Mal-odor is present. Erythema is present around the wound <2cm margins. LEFT: Open wound noted to anterior aspect of left mid-leg covered with dried scab. Scab measuring 9cm x 6cm. No drainage is noted. No probes to bone. Mal- odor is present. Erythema is present around the wound <2cm margins. VASC: Palpable DP and PT noted 2/4 bilaterally. CHARGING OPERATOR less than 3 seconds noted to all digits bilaterally. ORTHO: Pain on palpation to right foot and left leg. ROM decreased bilaterally distal to knee secondary to guarding. NEURO: Gross sensation nintact bilaterally, tested multiple points in plantar foot with [place] Italo Monofilament. - Neurological Exam Neurological Exam: Alert, Awake, Oriented x3 - Psychiatric Exam Psychiatric exam: Normal Affect, Normal Mood - Skin Skin Exam: Normal Color, Warm Assessment and Plan - Assessment and Plan (Free Text) Assessment: 46 yo female patient with non-diabetic open ulceration to bilateral lower extremities with infection. Plan: Podiatry plan for wound debridement of Right foot and left leg on 04/07/17Thursday 7:45 AM. Awaiting for medical / cardiac clearance. Patient was seen, evaluated and treated with all questions answered. Labs and vitals reviewed; Afebrile, WBC 6.3 Discussed in detail with Dr. Rodrigues MRI for Right foot - Still pending Arterial duplex - Petent arteries Bilateral lower extremity dressed with Betadine, Telfa, DSD Continue IV Abx per ID Podiatry will continue to follow in-house
--- NOTE | 2017-04-03 15:53 | CP.PCM.PN ---
Subjective - Date & Time of Evaluation Date of Evaluation: 04/03/17 Time of Evaluation: 15:53 - Subjective Subjective: PATIENT WAS ADMITTED FOR BILATERAL LEG ULCER NURSE ORTHOPAEDIC CONSULTED --DR BUENO ON THE CASE ORDER MRI OF THE LOWER EXTREMITY TO R/O OSTEO AND PATIENT HAD BEEN REFUSING DUE PAIN SHE STATE THAT SHE WAS IN PAIN THE FIRST TIME THAT SHE WENT THEN THE SECOND TIME WE MEDICATE HER WITH DILAUDID BUT SHE SAID THAT SHE CANNOT LAY FLAT FOR AT THE MRI TRAILER PER THE [place] [facility] THEY CAN TRY AGAIN UNTIL THURSDAY DUE THE [employer] TECHNOLOGY INSTRUCTOR ORDER BONE SCAN A RESULT REVIT DRAFTER CONSULT --DR BERNAL FOR CARDIAC CLEARANCE FOR DEBRIDEMENT ON THURSDAY (04/07/2017) BY DR BUENO PENDING RESULT ON THE MRI EKG DONE ---REVIEW BY DR BERNAL AND CLEAR THE PATIENT FROM CARDIAC STANDPOINT DR RAMIREZ AND DR BUENO WERE NOTIFIED Objective - Vital Signs/Intake and Output Vital Signs (last 24 hours): Temp Pulse Resp BP Pulse Ox 98.6 F 67 20 114/79 98 04/03/17 08:17 04/03/17 08:17 04/03/17 08:17 04/03/17 08:17 04/03/17 08:17 - Medications Medications: Current Medications Enoxaparin Sodium (Lovenox) 40 mg SC DAILY [facility] Last Admin: 04/03/17 09:38 Dose: 40 mg Hydromorphone HCl (Dilaudid) 1 mg IVP Q4 PRN PRN Reason: Pain, moderate (4-7) Last Admin: 04/03/17 12:14 Dose: 1 mg Piperacillin Sod/Tazobactam Sod (Zosyn 3.375 Gm Iv Premix) 3.375 gm in 50 mls @ 100 mls/hr IVPB Q8H [facility] Last Admin: 04/03/17 14:27 Dose: 100 mls/hr Nicotine (Nicoderm Cq) 1 patch TD DAILY [facility] Last Admin: 04/03/17 09:38 Dose: 1 patch Pantoprazole Sodium (Protonix Inj) 40 mg IVP DAILY [facility] Last Admin: 04/03/17 09:38 Dose: 40 mg Potassium Chloride (Klor-Con 10) 10 meq PO BRK [facility] Last Admin: 04/03/17 08:12 Dose: 10 meq Trimethoprim/Sulfamethoxazole (Bactrim Ds Tab) 1 tab PO Q12H [facility] Last Admin: 04/03/17 05:19 Dose: 1 tab - Labs Labs: 04/02/17 07:30 04/02/17 07:30
--- NOTE | 2017-04-03 17:07 | CP.PCM.CON ---
History of Present Illness - History of Present Illness History of Present Illness: 46 yo female patient with a PMHx of HIV and IVDA was seen at bedside concerning bilateral lower extremity wounds. Patient was resting comfortably in bed and denies of acute distress. AAO x3. NAD. Patient still complains of pain to Right foot as well as left leg. Patient is regretful that she didn't seek medical attention sooner when she first noticed infection. Patient was advised of podiatry plan of wound debridement with Dr. Rodrigues on 04/07/17Thursday morning. Patient denies of any N/V/F/C or SOB today. Ordinary patient is active moderately, NYHA 1 No palpitation, syncope, chest discomfort. Denies any hx of HTN, DM or lipid problems Denies any prior MO or CVA Denies any major surgery SOCHX: lives alone, smokes and abuses heroine Family HX: no hx of SCD or premature CAD Review of Systems - Review of Systems All systems: reviewed and no additional remarkable complaints except Past Patient History - Past Medical History & Family History Past Medical History?: Yes - Past Social History Smoking Status: Never Smoked - CARDIAC Hx Cardiac Disorders: No - PULMONARY Hx Bronchitis: Yes Hx Pneumonia: Yes - NEUROLOGICAL Hx Neurological Disorder: No - HEENT Hx HEENT Problems: No - RENAL Hx Chronic Kidney Disease: No - ENDOCRINE/METABOLIC Hx Endocrine Disorders: No - HEMATOLOGICAL/ONCOLOGICAL Hx Human Immunodeficiency Virus (HIV): Yes (HIV postive almost 20 yrs) - INTEGUMENTARY Hx Dermatological Problems: No - MUSCULOSKELETAL/RHEUMATOLOGICAL Hx Musculoskeletal Disorders: Yes Hx Falls: No - GASTROINTESTINAL Hx Gastrointestinal Disorders: Yes Hx Clostridium Difficile: Yes Hx Diarrhea: Yes - GENITOURINARY/GYNECOLOGICAL Hx Genitourinary Disorders: No - PSYCHIATRIC Hx Anxiety: Yes Hx Substance Use: Yes (Cocaine,Heroin) - SURGICAL HISTORY Hx Surgeries: No Other/Comment: DENIES - ANESTHESIA Hx Anesthesia: No Hx Anesthesia Reactions: No Hx Malignant Hyperthermia: No Meds Allergies/Adverse Reactions: Allergies Allergy/AdvReac Type Severity Reaction Status Date / Time No Known Allergies Allergy Verified 09/17/14 21:28 - Medications Medications: Current Medications Enoxaparin Sodium (Lovenox) 40 mg SC DAILY [facility] Last Admin: 04/03/17 09:38 Dose: 40 mg Hydromorphone HCl (Dilaudid) 1 mg IVP Q4 PRN PRN Reason: Pain, moderate (4-7) Last Admin: 04/03/17 16:08 Dose: 1 mg Piperacillin Sod/Tazobactam Sod (Zosyn 3.375 Gm Iv Premix) 3.375 gm in 50 mls @ 100 mls/hr IVPB Q8H [facility] Last Admin: 04/03/17 14:27 Dose: 100 mls/hr Lidocaine HCl (Lidocaine 2% Viscous) 15 ml PO Q6H PRN PRN Reason: Pain, Mild (1-3) Nicotine (Nicoderm Cq) 1 patch TD DAILY [facility] Last Admin: 04/03/17 09:38 Dose: 1 patch Pantoprazole Sodium (Protonix Inj) 40 mg IVP DAILY [facility] Last Admin: 04/03/17 09:38 Dose: 40 mg Potassium Chloride (Klor-Con 10) 10 meq PO BRK [facility] Last Admin: 04/03/17 08:12 Dose: 10 meq Trimethoprim/Sulfamethoxazole (Bactrim Ds Tab) 1 tab PO Q12H [facility] Last Admin: 04/03/17 05:19 Dose: 1 tab Physical Exam - Constitutional Appears: No Acute Distress - Head Exam Head Exam: ATRAUMATIC, NORMAL INSPECTION, NORMOCEPHALIC - Eye Exam Eye Exam: EOMI, Normal appearance, PERRL - ENT Exam ENT Exam: Mucous Membranes Moist, Normal Oropharynx - Respiratory Exam Respiratory Exam: Clear to Auscultation Bilateral, NORMAL BREATHING PATTERN. absent: Rhonchi, Wheezes - Cardiovascular Exam Cardiovascular Exam: REGULAR RHYTHM, +S1, +S2. absent: +S4, Systolic Murmur - GI/Abdominal Exam GI & Abdominal Exam: Normal Bowel Sounds, Soft. absent: Tenderness - Neurological Exam Neurological exam: Alert, CN II-XII Intact, Oriented x3 - Skin Skin Exam: Rash (B/L LE with dressing: Left DP pulse ++), Warm Results - Vital Signs Recent Vital Signs: Last Vital Signs Temp 98.4 F 04/03/17 16:15 Pulse 82 04/03/17 16:15 Resp 20 04/03/17 16:15 BP 104/64 04/03/17 16:15 Pulse Ox 99 04/03/17 16:15 - Labs Result Diagrams: 04/02/17 07:30 04/02/17 07:30 Assessment & Plan - Assessment and Plan (Free Text) Assessment: 46 y/o with LE wound infection needing debridement > No active CAD or CHF sx's > Normal cardiac exam without any suspicious murmurs > BP and HR WNL > No volume overload > No evidence for significant LE peripheral arterial disease Based on above: Patient can proceed with non-cardiac non vascular surgery with acceptable risk. Suggest routine EKG to document baseline: No need for any cardiac intervention prior. Routine monitoring *Substance abuse counseling and usual withdrawal precautions * Smoking cessation counseling
--- NOTE | 2017-04-03 17:39 | CP.PCM.PN ---
Subjective - Date & Time of Evaluation Date of Evaluation: 04/03/17 Time of Evaluation: 10:00 - Subjective Subjective: seen by cardio iv rx in progress DR Lilia olmedo requested MRI pending Objective - Vital Signs/Intake and Output Vital Signs (last 24 hours): Temp Pulse Resp BP Pulse Ox 98.4 F 82 20 104/64 99 04/03/17 16:15 04/03/17 16:15 04/03/17 16:15 04/03/17 16:15 04/03/17 16:15 Intake and Output: 04/03/17 04/03/17 06:59 18:59 Intake Total 1250 Balance 1250 - Medications Medications: Current Medications Enoxaparin Sodium (Lovenox) 40 mg SC DAILY [facility] Last Admin: 04/03/17 09:38 Dose: 40 mg Hydromorphone HCl (Dilaudid) 1 mg IVP Q4 PRN PRN Reason: Pain, moderate (4-7) Last Admin: 04/03/17 16:08 Dose: 1 mg Piperacillin Sod/Tazobactam Sod (Zosyn 3.375 Gm Iv Premix) 3.375 gm in 50 mls @ 100 mls/hr IVPB Q8H [facility] Last Admin: 04/03/17 14:27 Dose: 100 mls/hr Lidocaine HCl (Lidocaine 2% Viscous) 15 ml PO Q6H PRN PRN Reason: Pain, Mild (1-3) Nicotine (Nicoderm Cq) 1 patch TD DAILY [facility] Last Admin: 04/03/17 09:38 Dose: 1 patch Pantoprazole Sodium (Protonix Inj) 40 mg IVP DAILY [facility] Last Admin: 04/03/17 09:38 Dose: 40 mg Potassium Chloride (Klor-Con 10) 10 meq PO BRK [facility] Last Admin: 04/03/17 08:12 Dose: 10 meq Trimethoprim/Sulfamethoxazole (Bactrim Ds Tab) 1 tab PO Q12H [facility] Last Admin: 04/03/17 05:19 Dose: 1 tab - Labs Labs: 04/02/17 07:30 04/02/17 07:30 - Constitutional Appears: Non-toxic, Cachectic, Chronically Ill - Head Exam Head Exam: NORMOCEPHALIC - Eye Exam Eye Exam: PERRL - ENT Exam ENT Exam: Mucous Membranes Dry - Neck Exam Neck Exam: absent: Lymphadenopathy - Respiratory Exam Respiratory Exam: Decreased Breath Sounds - Cardiovascular Exam Cardiovascular Exam: REGULAR RHYTHM - GI/Abdominal Exam GI & Abdominal Exam: Distended, Soft Assessment and Plan (1) Cellulitis of leg Status: Acute (2) IVDU (intravenous drug user) Status: Acute (3) Ulcers of both lower legs with necrosis of muscle Status: Acute (4) AIDS (acquired immune deficiency syndrome) Status: Chronic (5) HIV (human immunodeficiency virus infection) Status: Chronic (6) Abscess and cellulitis Status: Acute
--- NOTE | 2017-04-03 19:35 | CP.PCM.PN ---
Subjective - Date & Time of Evaluation Date of Evaluation: 04/03/17 Time of Evaluation: 09:40 - Subjective Subjective: clinically same Objective - Vital Signs/Intake and Output Vital Signs (last 24 hours): Temp Pulse Resp BP Pulse Ox 98.4 F 82 20 104/64 99 04/03/17 16:15 04/03/17 16:15 04/03/17 16:15 04/03/17 16:15 04/03/17 16:15 Intake and Output: 04/03/17 04/04/17 18:59 06:59 Intake Total 1250 Balance 1250 - Medications Medications: Current Medications Enoxaparin Sodium (Lovenox) 40 mg SC DAILY [facility] Last Admin: 04/03/17 09:38 Dose: 40 mg Hydromorphone HCl (Dilaudid) 1 mg IVP Q4 PRN PRN Reason: Pain, moderate (4-7) Last Admin: 04/03/17 16:08 Dose: 1 mg Piperacillin Sod/Tazobactam Sod (Zosyn 3.375 Gm Iv Premix) 3.375 gm in 50 mls @ 100 mls/hr IVPB Q8H [facility] Last Admin: 04/03/17 14:27 Dose: 100 mls/hr Lidocaine HCl (Lidocaine 2% Viscous) 15 ml PO Q6H PRN PRN Reason: Pain, Mild (1-3) Last Admin: 04/03/17 17:51 Dose: 15 ml Nicotine (Nicoderm Cq) 1 patch TD DAILY [facility] Last Admin: 04/03/17 09:38 Dose: 1 patch Pantoprazole Sodium (Protonix Inj) 40 mg IVP DAILY [facility] Last Admin: 04/03/17 09:38 Dose: 40 mg Potassium Chloride (Klor-Con 10) 10 meq PO BRK [facility] Last Admin: 04/03/17 08:12 Dose: 10 meq Trimethoprim/Sulfamethoxazole (Bactrim Ds Tab) 1 tab PO Q12H [facility] Last Admin: 04/03/17 17:51 Dose: 1 tab - Labs Labs: 04/02/17 07:30 04/02/17 07:30
[2017-04-04] MEDS: Tmp-Smz 800 mg-160 mg DS Tab PO SCH ×2 (05:15→17:29)
[2017-04-04] MEDS: Piperacill/Tazo 3.375gm in Dex 3.375 GM/50 ML BAG IVPB SCH ×3 (05:15→21:02)
[2017-04-04 07:06] LABS: % CD4 (T HELPER CELL) 30 Percent (30-61); % CD8 (SUPPRESSOR T CELL) 49 Percent (12-42); ABSOLUTE CD4 CELLS 158 Cells/mcL (490-1740); ABSOLUTE CD8 CELLS 257 Cells/mcL (180-1170); ABSOLUTE LYMPHOCYTES 523 Cells/mcL (850-3900); HELPER/SUPPRESSOR RATIO 0.61 Ratio (0.86-5.00)
[2017-04-04 08:05] LABS: BASO % 0.8 % (0.0-2.0); EOS % 0.1 % (0.0-4.0); HEMOGLOBIN 10.2 g/dL (11.0-16.0); LYMPH # 0.9 K/uL (1.0-4.3); LYMPH % 19.6 % (20.0-40.0); MEAN CELL VOLUME 81.1 fL (81.0-99.0); MEAN CORPUSCULAR HEMOGLOBIN 27.1 pg (27.0-31.0); MEAN CORPUSCULAR HGB CONC 33.5 g/dL (33.0-37.0); MEAN PLATELET VOLUME 7.2 fL (7.2-11.7); MONO # 0.4 K/uL (0.0-0.8); MONO % 7.4 % (0.0-10.0); NEUT # 3.5 K/uL (1.8-7.0); NEUT % 72.1 % (50.0-75.0); NRBC % 0.1 % (0.0-2.0); RBC 3.75 Mil/uL (3.80-5.20); RED CELL DISTRIBUTION WIDTH 17.9 % (11.5-14.5); WHITE BLOOD COUNT 4.8 K/uL (4.8-10.8)
[2017-04-04] MEDS: Potassium Chloride 10 mEq ER Tab PO SCH (08:13)
[2017-04-04 09:15] LABS: ALB/GLOB RATIO 0.6 (1.0-2.1); ALBUMIN 3.3 g/dL (3.5-5.0); ALT/SGPT < 6 U/L (9-52); AST/SGOT 21 U/L (14-36); BLOOD UREA NITROGEN 11 mg/dL (7-17); CALCIUM 7.9 mg/dl (8.6-10.4); GFR AFRICAN-AMERICAN > 60; GFR NON-AFRICAN AMERICAN > 60
[2017-04-04] MEDS: Enoxaparin 40 mg Syringe SC SCH (09:47)
--- NOTE | 2017-04-04 10:15 | CP.PCM.PN ---
<Kay,Omar - Last Filed: 04/04/17 10:12> Subjective - Date & Time of Evaluation Date of Evaluation: 04/04/17 Time of Evaluation: 10:12 - Subjective Subjective: 46 year old female with PMHx of HIV, IVDA (heroine) seen at bedside for infected b/l lower extremity ulcerations. Patient states that both wounds are severely painful to touch. Patient was scheduled for MRI yesterday but continually refused because of the level of pain to her legs. She also stated that she didn't think she would be able to handle laying in the MRI machine. Bone scan was ordered by HAND HARDENER as a result. Patient denies any other acute overnight events. She denies any N/V/F/C/CP/SOB/posterior calf pain/urinary retention/constipation. Denies any further pedal complaints at this time. Objective - Vital Signs/Intake and Output Vital Signs (last 24 hours): Temp Pulse Resp BP Pulse Ox 98 F 84 20 120/80 97 04/04/17 08:26 04/04/17 08:26 04/04/17 08:26 04/04/17 08:26 04/04/17 08:26 - Medications Medications: Current Medications Enoxaparin Sodium (Lovenox) 40 mg SC DAILY [facility] Last Admin: 04/04/17 09:47 Dose: 40 mg Hydromorphone HCl (Dilaudid) 1 mg IVP Q4 PRN PRN Reason: Pain, moderate (4-7) Last Admin: 04/04/17 08:13 Dose: 1 mg Piperacillin Sod/Tazobactam Sod (Zosyn 3.375 Gm Iv Premix) 3.375 gm in 50 mls @ 100 mls/hr IVPB Q8H [facility] Last Admin: 04/04/17 05:15 Dose: 100 mls/hr Lidocaine HCl (Lidocaine 2% Viscous) 15 ml PO Q6H PRN PRN Reason: Pain, Mild (1-3) Last Admin: 04/03/17 17:51 Dose: 15 ml Nicotine (Nicoderm Cq) 1 patch TD DAILY [facility] Last Admin: 04/04/17 09:47 Dose: 1 patch Pantoprazole Sodium (Protonix Inj) 40 mg IVP DAILY [facility] Last Admin: 04/04/17 09:47 Dose: 40 mg Potassium Chloride (Klor-Con 10) 10 meq PO BRK [facility] Last Admin: 04/04/17 08:13 Dose: 10 meq Trimethoprim/Sulfamethoxazole (Bactrim Ds Tab) 1 tab PO Q12H [facility] Last Admin: 04/04/17 05:15 Dose: 1 tab - Labs Labs: 04/04/17 07:50 04/04/17 07:50 - Constitutional Appears: Non-toxic, Unkempt - Extremities Exam Additional comments: Bilateral lower extremity exam DERM: RIGHT: Open wound noted to dorsum of right mid-foot measuring 10cm x 7cm x 1cm with mostly fibrotic base. Purulent drainage is noted. Probes to bone. Mal-odor is present. Erythema is present around the wound <2cm margins. No tunneling, tracking or undermining noted LEFT: Open wound noted to anterior aspect of left mid-leg. Dried eschar is no longer present. Scab measuring 9cm x 6cm. Mild purulent drainage is noted. No probe to bone. Mal-odor is present. Erythema is present around the wound <2cm margins. No tunneling, tracking or undermining noted. VASC: Palpable DP and PT noted 2/4 bilaterally. CHARGE OPERATOR less than 3 seconds noted to all digits bilaterally. ORTHO: Pain on palpation to right foot and left leg. ROM decreased bilaterally distal to knee secondary to guarding. NEURO: Gross sensation intact bilaterally, tested multiple points in plantar foot with [place] [employer] Monofilament. - Neurological Exam Neurological Exam: Alert, Awake, Oriented x3 - Psychiatric Exam Psychiatric exam: Normal Affect, Normal Mood Assessment and Plan - Assessment and Plan (Free Text) Assessment: 46 yo female patient with non-diabetic open ulceration to bilateral lower extremities with infection. Pt for OR with Dr. Rodrigues for wound debridement Plan: Patient seen and evaluated at bedside with attending Dr. Rodrigues Afebrile, absent Leukocytosis Continue IV abx per ID ESR 04/01 was 104 B/l wound cx (+) for MSSA, Group G Strep, Corynebacterium LE bone scan pending Pt. Cardiac cleared for OR with Dr. Rodrigues on 04/07/[address] Taylor Pt. wounds cleansed with saline and dressed with Telsidney, KEISHAD Podiatry will continue to follow while patient in house <Aidan Rodrigues - Last Filed: 04/04/17 18:46> Objective - Vital Signs/Intake and Output Vital Signs (last 24 hours): Temp Pulse Resp BP Pulse Ox 98.2 F 82 20 104/71 98 04/04/17 15:36 04/04/17 15:36 04/04/17 15:36 04/04/17 15:36 04/04/17 15:36 Intake and Output: 04/04/17 04/04/17 06:59 18:59 Intake Total 310 Balance 310 - Medications Medications: Current Medications Enoxaparin Sodium (Lovenox) 40 mg SC DAILY [facility] Last Admin: 04/04/17 09:47 Dose: 40 mg Hydromorphone HCl (Dilaudid) 1 mg IVP Q4 PRN PRN Reason: Pain, moderate (4-7) Last Admin: 04/04/17 16:50 Dose: 1 mg Piperacillin Sod/Tazobactam Sod (Zosyn 3.375 Gm Iv Premix) 3.375 gm in 50 mls @ 100 mls/hr IVPB Q8H [facility] Last Admin: 04/04/17 14:26 Dose: 100 mls/hr Lidocaine HCl (Lidocaine 2% Viscous) 15 ml PO Q6H PRN PRN Reason: Pain, Mild (1-3) Last Admin: 04/03/17 17:51 Dose: 15 ml Nicotine (Nicoderm Cq) 1 patch TD DAILY [facility] Last Admin: 04/04/17 09:47 Dose: 1 patch Pantoprazole Sodium (Protonix Ec Tab) 40 mg PO DAILY [facility] Potassium Chloride (Klor-Con 10) 10 meq PO BRK [facility] Last Admin: 04/04/17 08:13 Dose: 10 meq Trimethoprim/Sulfamethoxazole (Bactrim Ds Tab) 1 tab PO Q12H [facility] Last Admin: 04/04/17 17:29 Dose: 1 tab - Labs Labs: 04/04/17 07:50 04/04/17 07:50 Assessment and Plan - Assessment and Plan (Free Text) Plan: pt seen at bedside this am . labs and chart reviewed .agree with above .Dr RODRIGUES.
--- NOTE | 2017-04-04 15:07 | CP.PCM.PN ---
Subjective - Date & Time of Evaluation Date of Evaluation: 04/04/17 Time of Evaluation: 09:40 - Subjective Subjective: clinically same Objective - Vital Signs/Intake and Output Vital Signs (last 24 hours): Temp Pulse Resp BP Pulse Ox 98 F 84 20 120/80 97 04/04/17 08:26 04/04/17 08:26 04/04/17 08:26 04/04/17 08:26 04/04/17 08:26 Intake and Output: 04/04/17 04/04/17 06:59 18:59 Intake Total 310 Balance 310 - Medications Medications: Current Medications Enoxaparin Sodium (Lovenox) 40 mg SC DAILY [facility] Last Admin: 04/04/17 09:47 Dose: 40 mg Hydromorphone HCl (Dilaudid) 1 mg IVP Q4 PRN PRN Reason: Pain, moderate (4-7) Last Admin: 04/04/17 12:46 Dose: 1 mg Piperacillin Sod/Tazobactam Sod (Zosyn 3.375 Gm Iv Premix) 3.375 gm in 50 mls @ 100 mls/hr IVPB Q8H [facility] Last Admin: 04/04/17 14:26 Dose: 100 mls/hr Lidocaine HCl (Lidocaine 2% Viscous) 15 ml PO Q6H PRN PRN Reason: Pain, Mild (1-3) Last Admin: 04/03/17 17:51 Dose: 15 ml Nicotine (Nicoderm Cq) 1 patch TD DAILY [facility] Last Admin: 04/04/17 09:47 Dose: 1 patch Pantoprazole Sodium (Protonix Ec Tab) 40 mg PO DAILY [facility] Potassium Chloride (Klor-Con 10) 10 meq PO BRK [facility] Last Admin: 04/04/17 08:13 Dose: 10 meq Trimethoprim/Sulfamethoxazole (Bactrim Ds Tab) 1 tab PO Q12H [facility] Last Admin: 04/04/17 05:15 Dose: 1 tab - Labs Labs: 04/04/17 07:50 04/04/17 07:50
--- NOTE | 2017-04-04 15:55 | NM ---
PROCEDURE: Whole Body Bone Scan HISTORY: R/O OSTEO ON THE RIGHT FOOT COMPARISON: None available. TECHNIQUE: Following administration of 24.1 miCu of Tc MDP 3 phase bone scan of the bilateral ankle and feet images were obtained. FINDINGS: There is focal increased blood flow hyperemia and delayed increased radiotracer uptake at the medial aspect of proximal right foot at the level of the tarsal bones suspicious for osteomyelitis. Degenerative uptake: Arthritic degenerative changes are noted at bilateral ankle tarsal and tarsal metatarsal joints. Other findings: None. IMPRESSION: Abnormal study demonstrates increased blood flow hyperemia and delayed radiotracer accumulation at the medial aspect of the proximal right foot at the level of the tarsal bone and right aspect of the right ankle suspicious for osteomyelitis. Bilateral arthritic changes.
--- NOTE | 2017-04-04 18:48 | CP.PCM.PN ---
Subjective - Date & Time of Evaluation Date of Evaluation: 04/04/17 Time of Evaluation: 18:46 - Subjective Subjective: pt was seen this am at bedside . Bone scan result reviewed and noted to be positive for diffuse OM of rearfoot and ankle RT . Objective - Vital Signs/Intake and Output Vital Signs (last 24 hours): Temp Pulse Resp BP Pulse Ox 98.2 F 82 20 104/71 98 04/04/17 15:36 04/04/17 15:36 04/04/17 15:36 04/04/17 15:36 04/04/17 15:36 Intake and Output: 04/04/17 04/04/17 06:59 18:59 Intake Total 310 Balance 310 - Medications Medications: Current Medications Enoxaparin Sodium (Lovenox) 40 mg SC DAILY [facility] Last Admin: 04/04/17 09:47 Dose: 40 mg Hydromorphone HCl (Dilaudid) 1 mg IVP Q4 PRN PRN Reason: Pain, moderate (4-7) Last Admin: 04/04/17 16:50 Dose: 1 mg Piperacillin Sod/Tazobactam Sod (Zosyn 3.375 Gm Iv Premix) 3.375 gm in 50 mls @ 100 mls/hr IVPB Q8H [facility] Last Admin: 04/04/17 14:26 Dose: 100 mls/hr Lidocaine HCl (Lidocaine 2% Viscous) 15 ml PO Q6H PRN PRN Reason: Pain, Mild (1-3) Last Admin: 04/03/17 17:51 Dose: 15 ml Nicotine (Nicoderm Cq) 1 patch TD DAILY [facility] Last Admin: 04/04/17 09:47 Dose: 1 patch Pantoprazole Sodium (Protonix Ec Tab) 40 mg PO DAILY [facility] Potassium Chloride (Klor-Con 10) 10 meq PO BRK [facility] Last Admin: 04/04/17 08:13 Dose: 10 meq Trimethoprim/Sulfamethoxazole (Bactrim Ds Tab) 1 tab PO Q12H [facility] Last Admin: 04/04/17 17:29 Dose: 1 tab - Labs Labs: 04/04/17 07:50 04/04/17 07:50
[2017-04-05] MEDS: Piperacill/Tazo 3.375gm in Dex 3.375 GM/50 ML BAG IVPB SCH ×3 (05:04→21:20)
[2017-04-05] MEDS: Tmp-Smz 800 mg-160 mg DS Tab PO SCH ×2 (05:06→17:17)
[2017-04-05] MEDS: Potassium Chloride 10 mEq ER Tab PO SCH (08:59)
[2017-04-05] MEDS: Pantoprazole 40 mg EC Tab PO SCH (09:01)
--- NOTE | 2017-04-05 12:17 | CP.PCM.PN ---
Subjective - Date & Time of Evaluation Date of Evaluation: 04/05/17 Time of Evaluation: 12:13 - Subjective Subjective: 46 year old female with PMHx of HIV, IVDA (heroine) seen at bedside for infected b/l lower extremity ulcerations. Patient is AAO x 3 and NAD resting comfortably in bed at time of visit. Patient states that both wounds are severely painful to touch. Patient states that she had bone scan performed yesterday without incident. Patient denies any other acute overnight events. She denies any N/V/F/C/CP/SOB/posterior calf pain/urinary retention/ constipation. Denies any further pedal complaints at this time. Objective - Vital Signs/Intake and Output Vital Signs (last 24 hours): Temp Pulse Resp BP Pulse Ox 98.3 F 87 20 99/68 L 100 04/05/17 09:31 04/05/17 09:31 04/05/17 09:31 04/05/17 09:31 04/05/17 09:31 Intake and Output: 04/05/17 04/05/17 06:59 18:59 Intake Total 150 300 Balance 150 300 - Medications Medications: Current Medications Enoxaparin Sodium (Lovenox) 40 mg SC DAILY [facility] Last Admin: 04/04/17 09:47 Dose: 40 mg Hydromorphone HCl (Dilaudid) 1 mg IVP Q4 PRN PRN Reason: Pain, moderate (4-7) Last Admin: 04/05/17 09:00 Dose: 1 mg Piperacillin Sod/Tazobactam Sod (Zosyn 3.375 Gm Iv Premix) 3.375 gm in 50 mls @ 100 mls/hr IVPB Q8H [facility] Last Admin: 04/05/17 05:04 Dose: 100 mls/hr Lidocaine HCl (Lidocaine 2% Viscous) 15 ml PO Q6H PRN PRN Reason: Pain, Mild (1-3) Last Admin: 04/03/17 17:51 Dose: 15 ml Nicotine (Nicoderm Cq) 1 patch TD DAILY [facility] Last Admin: 04/05/17 09:01 Dose: 1 patch Pantoprazole Sodium (Protonix Ec Tab) 40 mg PO DAILY [facility] Last Admin: 04/05/17 09:01 Dose: 40 mg Potassium Chloride (Klor-Con 10) 10 meq PO BRK [facility] Last Admin: 04/05/17 08:59 Dose: 10 meq Trimethoprim/Sulfamethoxazole (Bactrim Ds Tab) 1 tab PO Q12H [facility] Last Admin: 04/05/17 05:06 Dose: 1 tab - Labs Labs: 04/04/17 07:50 04/04/17 07:50 - Constitutional Appears: Well, Non-toxic, No Acute Distress - Extremities Exam Additional comments: Bilateral lower extremity exam DERM: RIGHT: Open wound noted to dorsum of right mid-foot measuring 10cm x 7cm x 1cm with mostly fibrotic base. Purulent drainage is noted. Probes to bone. Mal-odor is present. Erythema is present around the wound <2cm margins. No tunneling, tracking or undermining noted LEFT: Open wound noted to anterior aspect of left mid-leg. Dried eschar is no longer present. Scab measuring 9cm x 6cm. Mild purulent drainage is noted. No probe to bone. Mal-odor is present. Erythema is present around the wound <2cm margins. No tunneling, tracking or undermining noted. VASC: Palpable DP and PT noted 2/4 bilaterally. NEUROSURGICAL NURSE less than 3 seconds noted to all digits bilaterally. ORTHO: Pain on palpation to right foot and left leg. ROM decreased bilaterally distal to knee secondary to guarding. NEURO: Gross sensation intact bilaterally - Neurological Exam Neurological Exam: Alert, Awake, Oriented x3 - Psychiatric Exam Psychiatric exam: Normal Affect, Normal Mood Assessment and Plan - Assessment and Plan (Free Text) Assessment: 46 yo female patient with non-diabetic open ulceration to bilateral lower extremities with infection. Pt for OR with Dr. Rodrigues for wound debridement Plan: Patient seen and evaluated at bedside with attending Dr. Rodrigues Afebrile, absent Leukocytosis B/l wound cx (+) for MSSA, Group G Strep, Corynebacterium Continue IV abx per ID LE bone scan: Abnormal study demonstrates increased blood flow hyperemia and delayed radiotracer accumulation at the medial aspect of the proximal right foot at the level of the tarsal bone and right aspect of the right ankle suspicious for osteomyelitis. Bilateral arthritic changes Pt. Cardiac cleared for OR with Dr. Rodrigues on 04/07/[address] Taylor. Lovenox held Pt. wounds cleansed with saline and dressed with Tel[facility]IS[facility] J little Podiatry will continue to follow while patient in house
--- NOTE | 2017-04-05 18:08 | CP.PCM.PN ---
Subjective - Date & Time of Evaluation Date of Evaluation: 04/05/17 Time of Evaluation: 07:00 - Subjective Subjective: afeb alert + OM Objective - Vital Signs/Intake and Output Vital Signs (last 24 hours): Temp Pulse Resp BP Pulse Ox 98.5 F 98 H 20 119/71 100 04/05/17 16:00 04/05/17 16:00 04/05/17 16:00 04/05/17 16:00 04/05/17 16:00 Intake and Output: 04/05/17 04/05/17 06:59 18:59 Intake Total 150 710 Balance 150 710 - Medications Medications: Current Medications Enoxaparin Sodium (Lovenox) 40 mg SC DAILY REPLACED BY [facility] Last Admin: 04/04/17 09:47 Dose: 40 mg Hydromorphone HCl (Dilaudid) 1 mg IVP Q4 PRN PRN Reason: Pain, moderate (4-7) Last Admin: 04/05/17 17:17 Dose: 1 mg Piperacillin Sod/Tazobactam Sod (Zosyn 3.375 Gm Iv Premix) 3.375 gm in 50 mls @ 100 mls/hr IVPB Q8H REPLACED BY [facility] Last Admin: 04/05/17 13:17 Dose: 100 mls/hr Lidocaine HCl (Lidocaine 2% Viscous) 15 ml PO Q6H PRN PRN Reason: Pain, Mild (1-3) Last Admin: 04/03/17 17:51 Dose: 15 ml Nicotine (Nicoderm Cq) 1 patch TD DAILY REPLACED BY [facility] Last Admin: 04/05/17 09:01 Dose: 1 patch Pantoprazole Sodium (Protonix Ec Tab) 40 mg PO DAILY REPLACED BY [facility] Last Admin: 04/05/17 09:01 Dose: 40 mg Potassium Chloride (Klor-Con 10) 10 meq PO BRK REPLACED BY [facility] Last Admin: 04/05/17 08:59 Dose: 10 meq Trimethoprim/Sulfamethoxazole (Bactrim Ds Tab) 1 tab PO Q12H REPLACED BY [facility] Last Admin: 04/05/17 17:17 Dose: 1 tab - Labs Labs: 04/04/17 07:50 04/04/17 07:50 - Constitutional Appears: Non-toxic, Cachectic, Chronically Ill - Head Exam Head Exam: NORMOCEPHALIC - Eye Exam Eye Exam: PERRL - ENT Exam ENT Exam: Mucous Membranes Dry - Neck Exam Neck Exam: absent: Lymphadenopathy - Respiratory Exam Respiratory Exam: Decreased Breath Sounds - Cardiovascular Exam Cardiovascular Exam: REGULAR RHYTHM - GI/Abdominal Exam GI & Abdominal Exam: Distended, Soft - Rectal Exam Rectal Exam: Deferred - Exam Exam: Uretheral Discharge - Extremities Exam Extremities Exam: Pedal Edema, Tenderness - Back Exam Back Exam: absent: CVA tenderness (L), CVA tenderness (R) Assessment and Plan (1) Cellulitis of leg Status: Acute (2) IVDU (intravenous drug user) Status: Acute (3) Ulcers of both lower legs with necrosis of muscle Status: Acute (4) AIDS (acquired immune deficiency syndrome) Status: Chronic (5) HIV (human immunodeficiency virus infection) Status: Chronic (6) Abscess and cellulitis Status: Acute
[2017-04-05] MEDS ORDERED: Emtricitabine-Tenofovir 200 mg-300 mg Tab PO SCH (18:15)
--- NOTE | 2017-04-05 18:32 | CP.PCM.PN ---
Subjective - Date & Time of Evaluation Date of Evaluation: 04/05/17 Time of Evaluation: 08:25 - Subjective Subjective: clinically same Objective - Vital Signs/Intake and Output Vital Signs (last 24 hours): Temp Pulse Resp BP Pulse Ox 98.5 F 98 H 20 119/71 100 04/05/17 16:00 04/05/17 16:00 04/05/17 16:00 04/05/17 16:00 04/05/17 16:00 Intake and Output: 04/05/17 04/05/17 06:59 18:59 Intake Total 150 710 Balance 150 710 - Medications Medications: Current Medications Dolutegravir Sodium (Tivicay) 50 mg PO ONCE NR Emtricitabine/Tenofovir (Truvada 200 Mg-300 Mg) 1 tab PO DAILY [facility] Enoxaparin Sodium (Lovenox) 40 mg SC DAILY [facility] Last Admin: 04/04/17 09:47 Dose: 40 mg Hydromorphone HCl (Dilaudid) 1 mg IVP Q4 PRN PRN Reason: Pain, moderate (4-7) Last Admin: 04/05/17 17:17 Dose: 1 mg Piperacillin Sod/Tazobactam Sod (Zosyn 3.375 Gm Iv Premix) 3.375 gm in 50 mls @ 100 mls/hr IVPB Q8H [facility] Last Admin: 04/05/17 13:17 Dose: 100 mls/hr Lidocaine HCl (Lidocaine 2% Viscous) 15 ml PO Q6H PRN PRN Reason: Pain, Mild (1-3) Last Admin: 04/03/17 17:51 Dose: 15 ml Nicotine (Nicoderm Cq) 1 patch TD DAILY [facility] Last Admin: 04/05/17 09:01 Dose: 1 patch Pantoprazole Sodium (Protonix Ec Tab) 40 mg PO DAILY [facility] Last Admin: 04/05/17 09:01 Dose: 40 mg Potassium Chloride (Klor-Con 10) 10 meq PO BRK [facility] Last Admin: 04/05/17 08:59 Dose: 10 meq Trimethoprim/Sulfamethoxazole (Bactrim Ds Tab) 1 tab PO Q12H [facility] Last Admin: 04/05/17 17:17 Dose: 1 tab - Labs Labs: 04/04/17 07:50 04/04/17 07:50 - Constitutional Appears: Well - Head Exam Head Exam: ATRAUMATIC, NORMAL INSPECTION, NORMOCEPHALIC - Eye Exam Eye Exam: EOMI, Normal appearance, PERRL Pupil Exam: NORMAL ACCOMODATION, PERRL - ENT Exam ENT Exam: Mucous Membranes Moist, Normal Exam - Neck Exam Neck Exam: Full ROM, Normal Inspection. absent: Lymphadenopathy - Respiratory Exam Respiratory Exam: Decreased Breath Sounds - Cardiovascular Exam Cardiovascular Exam: REGULAR RHYTHM, +S1, +S2 - GI/Abdominal Exam GI & Abdominal Exam: Soft, Diminished Bowel Sounds - Rectal Exam Rectal Exam: Deferred
[2017-04-06] MEDS: Piperacill/Tazo 3.375gm in Dex 3.375 GM/50 ML BAG IVPB SCH ×3 (05:22→22:03)
[2017-04-06] MEDS: Tmp-Smz 800 mg-160 mg DS Tab PO SCH ×2 (05:22→18:06)
[2017-04-06] MEDS: Potassium Chloride 10 mEq ER Tab PO SCH (08:23)
[2017-04-06] MEDS: Emtricitabine-Tenofovir 200 mg-300 mg Tab PO SCH (09:58)
[2017-04-06] MEDS: Pantoprazole 40 mg EC Tab PO SCH (09:58)
--- NOTE | 2017-04-06 15:12 | CP.PCM.PN ---
Subjective - Date & Time of Evaluation Date of Evaluation: 04/06/17 Time of Evaluation: 15:02 - Subjective Subjective: 46 year old female with PMHx of HIV, IVDA (heroine) seen at bedside for infected b/l lower extremity ulcerations. Patient is AAO x 3 and NAD resting comfortably in bed at time of visit. Patient states that both wounds are severely painful to touch. Patient denies any other acute overnight events. She denies any N/V/F/C/CP/SOB/posterior calf pain/urinary retention/ constipation. Denies any further pedal complaints at this time. Patient is for OR wound debridements tomorrow. NPO after midnight Objective - Vital Signs/Intake and Output Vital Signs (last 24 hours): Temp Pulse Resp BP Pulse Ox 98.8 F 88 20 93/66 L 99 04/06/17 08:08 04/06/17 08:08 04/06/17 08:08 04/06/17 08:08 04/06/17 08:08 Intake and Output: 04/06/17 04/06/17 06:59 18:59 Intake Total 940 Balance 940 - Medications Medications: Current Medications Dolutegravir Sodium (Tivicay) 50 mg PO DAILY [facility] Last Admin: 04/06/17 09:58 Dose: 50 mg Emtricitabine/Tenofovir (Truvada 200 Mg-300 Mg) 1 tab PO DAILY [facility] Last Admin: 04/06/17 09:58 Dose: 1 tab Enoxaparin Sodium (Lovenox) 40 mg SC DAILY [facility] Last Admin: 04/04/17 09:47 Dose: 40 mg Hydromorphone HCl (Dilaudid) 1 mg IVP Q4 PRN PRN Reason: Pain, moderate (4-7) Last Admin: 04/06/17 14:04 Dose: 1 mg Piperacillin Sod/Tazobactam Sod (Zosyn 3.375 Gm Iv Premix) 3.375 gm in 50 mls @ 100 mls/hr IVPB Q8H [facility] Last Admin: 04/06/17 13:55 Dose: 100 mls/hr Lidocaine HCl (Lidocaine 2% Viscous) 15 ml PO Q6H PRN PRN Reason: Pain, Mild (1-3) Last Admin: 04/03/17 17:51 Dose: 15 ml Nicotine (Nicoderm Cq) 1 patch TD DAILY [facility] Last Admin: 04/06/17 09:58 Dose: 1 patch Pantoprazole Sodium (Protonix Ec Tab) 40 mg PO DAILY [facility] Last Admin: 04/06/17 09:58 Dose: 40 mg Potassium Chloride (Klor-Con 10) 10 meq PO BRK [facility] Last Admin: 04/06/17 08:23 Dose: 10 meq Trimethoprim/Sulfamethoxazole (Bactrim Ds Tab) 1 tab PO Q12H [facility] Last Admin: 04/06/17 05:22 Dose: 1 tab - Labs Labs: 04/04/17 07:50 04/04/17 07:50 - Constitutional Appears: Well, Non-toxic, No Acute Distress - Extremities Exam Additional comments: Bilateral lower extremity exam DERM: RIGHT: Open wound noted to dorsum of right mid-foot measuring 10cm x 7cm x 1cm with mostly fibrotic base. Purulent drainage is noted. Probes to bone. Mal-odor is present. Erythema is present around the wound <2cm margins. No tunneling, tracking or undermining noted LEFT: Open wound noted to anterior aspect of left mid-leg. Dried eschar is no longer present. Scab measuring 9cm x 6cm. Mild purulent drainage is noted. No probe to bone. Mal-odor is present. Erythema is present around the wound <2cm margins. No tunneling, tracking or undermining noted. Wound clinically appears to be improving. VASC: Palpable DP and PT noted 2/4 bilaterally. [employer] less than 3 seconds noted to all digits bilaterally. ORTHO: Pain on palpation to right foot and left leg. ROM decreased bilaterally distal to knee secondary to guarding. NEURO: Gross sensation intact bilaterally - Neurological Exam Neurological Exam: Alert, Awake, Oriented x3 - Psychiatric Exam Psychiatric exam: Normal Affect, Normal Mood Assessment and Plan - Assessment and Plan (Free Text) Assessment: 46 yo female patient with non-diabetic open ulceration to bilateral lower extremities with infection. Pt for OR with Dr. Rodrigues for wound debridement Plan: Patient seen and evaluated at bedside Plan discussed with attending Dr. Rodrigues Afebrile, absent Leukocytosis B/l wound cx (+) for MSSA, Group G Strep, Corynebacterium Continue IV abx per ID LE bone scan: Abnormal study demonstrates increased blood flow hyperemia and delayed radiotracer accumulation at the medial aspect of the proximal right foot at the level of the tarsal bone and right aspect of the right ankle suspicious for osteomyelitis. Bilateral arthritic changes Pt. Cardiac cleared for OR with Dr. Rodrigues on 04/07/[address] Taylor. Lovenox held NPO after midnight Pt. wounds cleansed with saline and dressed with [facility] Podiatry will continue to follow while patient in house
--- NOTE | 2017-04-06 15:19 | CP.PCM.PN ---
Subjective - Date & Time of Evaluation Date of Evaluation: 04/06/17 Time of Evaluation: 10:15 - Subjective Subjective: clinically same Objective - Vital Signs/Intake and Output Vital Signs (last 24 hours): Temp Pulse Resp BP Pulse Ox 98.8 F 88 20 93/66 L 99 04/06/17 08:08 04/06/17 08:08 04/06/17 08:08 04/06/17 08:08 04/06/17 08:08 Intake and Output: 04/06/17 04/06/17 06:59 18:59 Intake Total 940 530 Balance 940 530 - Medications Medications: Current Medications Dolutegravir Sodium (Tivicay) 50 mg PO DAILY [facility] Last Admin: 04/06/17 09:58 Dose: 50 mg Emtricitabine/Tenofovir (Truvada 200 Mg-300 Mg) 1 tab PO DAILY [facility] Last Admin: 04/06/17 09:58 Dose: 1 tab Enoxaparin Sodium (Lovenox) 40 mg SC DAILY [facility] Last Admin: 04/04/17 09:47 Dose: 40 mg Hydromorphone HCl (Dilaudid) 1 mg IVP Q4 PRN PRN Reason: Pain, moderate (4-7) Last Admin: 04/06/17 14:04 Dose: 1 mg Piperacillin Sod/Tazobactam Sod (Zosyn 3.375 Gm Iv Premix) 3.375 gm in 50 mls @ 100 mls/hr IVPB Q8H [facility] Last Admin: 04/06/17 13:55 Dose: 100 mls/hr Lidocaine HCl (Lidocaine 2% Viscous) 15 ml PO Q6H PRN PRN Reason: Pain, Mild (1-3) Last Admin: 04/03/17 17:51 Dose: 15 ml Nicotine (Nicoderm Cq) 1 patch TD DAILY [facility] Last Admin: 04/06/17 09:58 Dose: 1 patch Pantoprazole Sodium (Protonix Ec Tab) 40 mg PO DAILY [facility] Last Admin: 04/06/17 09:58 Dose: 40 mg Potassium Chloride (Klor-Con 10) 10 meq PO BRK [facility] Last Admin: 04/06/17 08:23 Dose: 10 meq Trimethoprim/Sulfamethoxazole (Bactrim Ds Tab) 1 tab PO Q12H [facility] Last Admin: 04/06/17 05:22 Dose: 1 tab - Labs Labs: 04/04/17 07:50 04/04/17 07:50 - Constitutional Appears: Well - Head Exam Head Exam: ATRAUMATIC, NORMAL INSPECTION, NORMOCEPHALIC - Eye Exam Eye Exam: EOMI, Normal appearance, PERRL Pupil Exam: NORMAL ACCOMODATION, PERRL - ENT Exam ENT Exam: Mucous Membranes Moist, Normal Exam - Neck Exam Neck Exam: Full ROM, Normal Inspection. absent: Lymphadenopathy - Respiratory Exam Respiratory Exam: Decreased Breath Sounds - Cardiovascular Exam Cardiovascular Exam: REGULAR RHYTHM, +S1, +S2 - GI/Abdominal Exam GI & Abdominal Exam: Soft, Diminished Bowel Sounds - Rectal Exam Rectal Exam: Deferred Assessment and Plan - Assessment and Plan (Free Text) Plan: Continue Bactrim Continue DVT and GI prophylaxis Continue IV K Continue Truvada Continue Zosyn Continue follow-up with the podiatry Debridement for the foot ulcerations Cardiology clearance
[2017-04-06 16:50] LABS: HEMOGLOBIN 10.7 g/dL (11.0-16.0); MEAN CORPUSCULAR HEMOGLOBIN 27.4 pg (27.0-31.0); MEAN CORPUSCULAR HGB CONC 33.8 g/dL (33.0-37.0); RBC 3.92 Mil/uL (3.80-5.20); RED CELL DISTRIBUTION WIDTH 17.9 % (11.5-14.5); WHITE BLOOD COUNT 5.8 K/uL (4.8-10.8)
[2017-04-06 17:21] LABS: BLOOD UREA NITROGEN 17 mg/dL (7-17); CALCIUM 8.3 mg/dl (8.6-10.4); GFR AFRICAN-AMERICAN > 60; GFR NON-AFRICAN AMERICAN > 60
[2017-04-06] MEDS ORDERED: HYDROmorphone 1 mg/ml ISec IVP PRN (23:35)
[2017-04-07] MEDS: Tmp-Smz 800 mg-160 mg DS Tab PO SCH ×2 (05:32→17:40)
[2017-04-07] MEDS: Piperacill/Tazo 3.375gm in Dex 3.375 GM/50 ML BAG IVPB SCH ×3 (05:32→21:28)
--- NOTE | 2017-04-07 07:31 | CP.PCM.PN ---
Subjective - Date & Time of Evaluation Date of Evaluation: 04/07/17 Time of Evaluation: 10:05 - Subjective Subjective: Podiatry Progress Note- Dr. Aidan Rodrigues 46 year old female with PMHx of HIV, IVDA (heroine) seen at bedside for infected b/l lower extremity ulcerations. Patient is seen resting comfortably in bed, in NAD, and in AA0x3. Patient understands that she is going to surgery for left leg ulceration and right foot ulceration irrigation and debridement today. She agrees and understands. She reports not eating or drinking since 7pm last night. She denies n/v/sob/cp/chills/f. Dressing to the lower extremities c/ d/i. Objective - Vital Signs/Intake and Output Vital Signs (last 24 hours): Temp Pulse Resp BP Pulse Ox 98.7 F 88 20 100/65 99 04/06/17 23:14 04/06/17 23:14 04/06/17 23:14 04/06/17 23:14 04/06/17 23:14 Intake and Output: 04/07/17 04/07/17 06:59 18:59 Intake Total 550 Balance 550 - Medications Medications: Current Medications Dolutegravir Sodium (Tivicay) 50 mg PO DAILY [facility] Last Admin: 04/06/17 09:58 Dose: 50 mg Emtricitabine/Tenofovir (Truvada 200 Mg-300 Mg) 1 tab PO DAILY [facility] Last Admin: 04/06/17 09:58 Dose: 1 tab Enoxaparin Sodium (Lovenox) 40 mg SC DAILY [facility] Last Admin: 04/04/17 09:47 Dose: 40 mg Hydromorphone HCl (Dilaudid) 1 mg IVP Q4H PRN PRN Reason: pain Last Admin: 04/07/17 07:02 Dose: 1 mg Piperacillin Sod/Tazobactam Sod (Zosyn 3.375 Gm Iv Premix) 3.375 gm in 50 mls @ 100 mls/hr IVPB Q8H [facility] Last Admin: 04/07/17 05:32 Dose: 100 mls/hr Lidocaine HCl (Lidocaine 2% Viscous) 15 ml PO Q6H PRN PRN Reason: Pain, Mild (1-3) Last Admin: 04/03/17 17:51 Dose: 15 ml Nicotine (Nicoderm Cq) 1 patch TD DAILY [facility] Last Admin: 04/06/17 09:58 Dose: 1 patch Pantoprazole Sodium (Protonix Ec Tab) 40 mg PO DAILY [facility] Last Admin: 04/06/17 09:58 Dose: 40 mg Potassium Chloride (Klor-Con 10) 10 meq PO BRK [facility] Last Admin: 04/06/17 08:23 Dose: 10 meq Trimethoprim/Sulfamethoxazole (Bactrim Ds Tab) 1 tab PO Q12H [facility] Last Admin: 04/07/17 05:32 Dose: 1 tab - Labs Labs: 04/06/17 16:47 04/06/17 16:47 - Constitutional Appears: Well, Non-toxic, No Acute Distress - Extremities Exam Extremities Exam: absent: Calf Tenderness Additional comments: Dressing to the lower extremities c/d/i without strikethrough note.d - Neurological Exam Neurological Exam: Alert, Awake, Oriented x3 - Psychiatric Exam Psychiatric exam: Normal Affect, Normal Mood Assessment and Plan - Assessment and Plan (Free Text) Assessment: 46 year old female with PMHx of HIV, IVDA (heroine) seen at bedside for infected b/l lower extremity ulcerations pre-evaluated for the OR for left leg ulceration and right foot ulceration irrigation and debridement today. Plan: Pt was seen and examined at bedside Pt NPO status was confirmed All Pre-op testing and clearance was in the chart Pt has exhausted all conservative treatment at this time and is opting for surgical intervention Pt was explained procedure and post-operative course All pt's questions were answered to satisfaction No guarantees were made Pt understands all risks, benefits and complications of procedure Will continue to follow patient while in house Upon discharge, will followup with Dr. Rodrigues
[2017-04-07] MEDS ORDERED: Midazolam 2 MG/2 ML VIAL ONE (07:48)
[2017-04-07] MEDS ORDERED: Propofol 10 mg/ml Inj (20 ML) ONE ×2 (07:48→09:13)
[2017-04-07] MEDS: Bupivacaine HCl 0.5% PF (10 ml) Inj ONE ×2 (07:53→08:30)
[2017-04-07] MEDS: Lidocaine 1% Inj (20ml) ONE ×2 (07:54→08:30)
[2017-04-07] MEDS ORDERED: Lactated Ringer's 1,000 ML IV ONE ×3 (07:55)
[2017-04-07] MEDS ORDERED: Bupivacaine HCl 0.25% PF (10 ml) Inj ONE (09:12)
--- NOTE | 2017-04-07 09:23 | CP.PCM.PN ---
Subjective - Date & Time of Evaluation Date of Evaluation: 04/07/17 Time of Evaluation: 09:14 - Subjective Subjective: Progress Note for Dr. Juarez's Service Pt seen and examined at bedside. She is going to the OR with Dr. Rodrigues today for debridement of her wounds. No acute events overnight. Objective - Vital Signs/Intake and Output Vital Signs (last 24 hours): Temp Pulse Resp BP Pulse Ox 98.2 F 91 H 20 100/63 96 04/07/17 08:00 04/07/17 08:00 04/07/17 08:00 04/07/17 08:00 04/07/17 08:00 Intake and Output: 04/07/17 04/07/17 06:59 18:59 Intake Total 550 75 Balance 550 75 - Medications Medications: Current Medications Dolutegravir Sodium (Tivicay) 50 mg PO DAILY [facility] Last Admin: 04/06/17 09:58 Dose: 50 mg Emtricitabine/Tenofovir (Truvada 200 Mg-300 Mg) 1 tab PO DAILY [facility] Last Admin: 04/06/17 09:58 Dose: 1 tab Enoxaparin Sodium (Lovenox) 40 mg SC DAILY [facility] Last Admin: 04/04/17 09:47 Dose: 40 mg Hydromorphone HCl (Dilaudid) 1 mg IVP Q4H PRN PRN Reason: pain Last Admin: 04/07/17 07:02 Dose: 1 mg Piperacillin Sod/Tazobactam Sod (Zosyn 3.375 Gm Iv Premix) 3.375 gm in 50 mls @ 100 mls/hr IVPB Q8H [facility] Last Admin: 04/07/17 05:32 Dose: 100 mls/hr Lidocaine HCl (Lidocaine 2% Viscous) 15 ml PO Q6H PRN PRN Reason: Pain, Mild (1-3) Last Admin: 04/03/17 17:51 Dose: 15 ml Nicotine (Nicoderm Cq) 1 patch TD DAILY [facility] Last Admin: 04/06/17 09:58 Dose: 1 patch Pantoprazole Sodium (Protonix Ec Tab) 40 mg PO DAILY [facility] Last Admin: 04/06/17 09:58 Dose: 40 mg Potassium Chloride (Klor-Con 10) 10 meq PO BRK [facility] Last Admin: 04/06/17 08:23 Dose: 10 meq Trimethoprim/Sulfamethoxazole (Bactrim Ds Tab) 1 tab PO Q12H [facility] Last Admin: 04/07/17 05:32 Dose: 1 tab - Labs Labs: 04/06/17 16:47 04/06/17 16:47 - Constitutional Appears: No Acute Distress - Head Exam Head Exam: ATRAUMATIC, NORMOCEPHALIC - Eye Exam Eye Exam: EOMI - ENT Exam ENT Exam: Mucous Membranes Moist - Respiratory Exam Respiratory Exam: Clear to Ausculation Bilateral, NORMAL BREATHING PATTERN - Cardiovascular Exam Cardiovascular Exam: REGULAR RHYTHM - GI/Abdominal Exam GI & Abdominal Exam: Soft. absent: Tenderness - Extremities Exam Additional comments: wounds dressed C/D/I - Neurological Exam Neurological Exam: Alert, Awake, Oriented x3 Assessment and Plan - Assessment and Plan (Free Text) Plan: Cellulitis- B/L lower extremities Podiatry Consulted- Dr. Sharad lees appreciated B/l wound cx (+) for MSSA, Group G Strep, Corynebacterium ID consult placed- Dr. Carlos Lees appreciated Continue IV abx per ID Zosyn 3.375g q8hrs Bactrim 1T PO q12hrs Pt to be undergoing debridement with Dr. Rodrigues 04/07/2017 Cardiac risk assessment completed by Dr. Brandon TEJADA bone scan: Abnormal study demonstrates increased blood flow hyperemia and delayed radiotracer accumulation at the medial aspect of the proximal right foot at the level of the tarsal bone and right aspect of the right ankle suspicious for osteomyelitis. Bilateral arthritic changes WBC- normal Afebrile Wound care as per Podiatry- cleans with saline and dressed with Telfa, DSD Lidocaine 2% 15mL PO q6hrs prn pain Dilauded 1mg IVP q4hrs prn pain HIV ID consult placed- Dr. Carlos Lees appreciated Tivicay 50mg PO daily Truvada 1T PO daily CD4: 30 CD8: 49 IVDA (heroine) UDS positive for cocaine and opiates Counselled on hazards/cessation Hepatitis panel negative Prophylaxis Protonix 40mg PO daily Nicoderm Patch Lovenox- held for surgery Case discussed with Dr. Juarez All management per Dr. Juarez
--- NOTE | 2017-04-07 09:30 | PCM.SURG1 ---
Surgeon's Initial Post Op Note - Surgeon's Notes Surgeon: Dr. Aidan Rodrigues DPM Lead Architect: Dr. Zelda Mendoza DPM PGY-2, Dr. Efren Ramirez DPM PGY-1 Type of Anesthesia: IV Sedation, Local Anesthesia Administered By: Olga Lidia Pre-Operative Diagnosis: nonhealing left leg ulceration and right foot ulceration Operative Findings: see dictations. injectables: 35 cc of 1:1 1% lidocaine plain and .5% marcaine plain, intraoperative 8cc of .25% marcaine plain; materials: none Post-Operative Diagnosis: same Operation Performed: irrigation and debridement of left leg ulceration and right foot ulceration Specimen/Specimens Removed: none Estimated Blood Loss: EBL {In ML}: 20 Blood Products Given: N/A Drains Used: No Drains Post-Op Condition: Good Date of Surgery/Procedure: 04/07/17 Time of Surgery/Procedure: 08:00
[2017-04-07] MEDS ORDERED: Oxycodone/Acetaminophen 5/325 mg Tab PO PRN (09:36)
[2017-04-07] MEDS: Potassium Chloride 10 mEq ER Tab PO SCH (09:38)
[2017-04-07] MEDS: Pantoprazole 40 mg EC Tab PO SCH (09:39)
[2017-04-07] MEDS: Emtricitabine-Tenofovir 200 mg-300 mg Tab PO SCH (09:39)
[2017-04-07] MEDS ORDERED: Lactated Ringer's 1,000 ML IV SCH (09:45)
--- NOTE | 2017-04-07 10:40 | CP.PCM.PN ---
Subjective - Date & Time of Evaluation Date of Evaluation: 04/07/17 Time of Evaluation: 07:20 - Subjective Subjective: clinically same Objective - Vital Signs/Intake and Output Vital Signs (last 24 hours): Temp Pulse Resp BP Pulse Ox 98.2 F 91 H 20 100/63 96 04/07/17 08:00 04/07/17 08:00 04/07/17 08:00 04/07/17 08:00 04/07/17 08:00 Intake and Output: 04/07/17 04/07/17 06:59 18:59 Intake Total 550 75 Balance 550 75 - Medications Medications: Current Medications Acetaminophen (Tylenol 325mg Tab) 650 mg PO Q6 PRN PRN Reason: Pain, Mild (1-3) Dolutegravir Sodium (Tivicay) 50 mg PO DAILY [facility] Last Admin: 04/07/17 09:39 Dose: Not Given Emtricitabine/Tenofovir (Truvada 200 Mg-300 Mg) 1 tab PO DAILY [facility] Last Admin: 04/07/17 09:39 Dose: Not Given Enoxaparin Sodium (Lovenox) 40 mg SC DAILY [facility] Last Admin: 04/04/17 09:47 Dose: 40 mg Hydromorphone HCl (Dilaudid) 1 mg IVP Q4H PRN PRN Reason: pain Last Admin: 04/07/17 07:02 Dose: 1 mg Hydromorphone HCl (Dilaudid) 0.5 mg IVP Q10M PRN PRN Reason: Pain, moderate (4-7) Stop: 04/07/17 11:43 Piperacillin Sod/Tazobactam Sod (Zosyn 3.375 Gm Iv Premix) 3.375 gm in 50 mls @ 100 mls/hr IVPB Q8H [facility] Last Admin: 04/07/17 05:32 Dose: 100 mls/hr Lactated Ringer's (Lactated Ringer's) 1,000 mls @ 100 mls/hr IV .Q10H [facility] Lidocaine HCl (Lidocaine 2% Viscous) 15 ml PO Q6H PRN PRN Reason: Pain, Mild (1-3) Last Admin: 04/03/17 17:51 Dose: 15 ml Nicotine (Nicoderm Cq) 1 patch TD DAILY [facility] Last Admin: 04/06/17 09:58 Dose: 1 patch Ondansetron HCl (Zofran Inj) 4 mg IVP ONCE PRN PRN Reason: Nausea/Vomiting Stop: 04/07/17 11:44 Oxycodone/Acetaminophen (Percocet 5/325 Mg Tab) 1 tab PO Q4H PRN PRN Reason: Pain, moderate (4-7) Stop: 04/10/17 09:37 Oxycodone/Acetaminophen (Percocet 5/325 Mg Tab) 2 tab PO Q4H PRN PRN Reason: Pain, severe (8-10) Stop: 04/10/17 09:37 Pantoprazole Sodium (Protonix Ec Tab) 40 mg PO DAILY [facility] Last Admin: 04/07/17 09:39 Dose: Not Given Potassium Chloride (Klor-Con 10) 10 meq PO BRK [facility] Last Admin: 04/07/17 09:38 Dose: Not Given Trimethoprim/Sulfamethoxazole (Bactrim Ds Tab) 1 tab PO Q12H [facility] Last Admin: 04/07/17 05:32 Dose: 1 tab - Labs Labs: 04/06/17 16:47 04/06/17 16:47 - Constitutional Appears: Well - Head Exam Head Exam: ATRAUMATIC, NORMAL INSPECTION, NORMOCEPHALIC - Eye Exam Eye Exam: EOMI, Normal appearance, PERRL Pupil Exam: NORMAL ACCOMODATION, PERRL - ENT Exam ENT Exam: Mucous Membranes Moist, Normal Exam - Neck Exam Neck Exam: Full ROM, Normal Inspection. absent: Lymphadenopathy - Respiratory Exam Respiratory Exam: Decreased Breath Sounds - Cardiovascular Exam Cardiovascular Exam: REGULAR RHYTHM, +S1, +S2 - GI/Abdominal Exam GI & Abdominal Exam: Soft, Diminished Bowel Sounds - Rectal Exam Rectal Exam: Deferred
--- NOTE | 2017-04-07 15:44 | CP.PCM.PN ---
Subjective - Date & Time of Evaluation Date of Evaluation: 04/07/17 Time of Evaluation: 08:00 - Subjective Subjective: s/p OR IV rx i n progress cont rx 6-[address] Enrique Juarez Objective - Vital Signs/Intake and Output Vital Signs (last 24 hours): Temp Pulse Resp BP Pulse Ox 98.5 F 75 16 133/94 H 100 04/07/17 10:15 04/07/17 10:15 04/07/17 10:15 04/07/17 10:15 04/07/17 10:15 Intake and Output: 04/07/17 04/07/17 06:59 18:59 Intake Total 550 1125 Balance 550 1125 - Medications Medications: Current Medications Acetaminophen (Tylenol 325mg Tab) 650 mg PO Q6 PRN PRN Reason: Pain, Mild (1-3) Dolutegravir Sodium (Tivicay) 50 mg PO DAILY [facility] Last Admin: 04/07/17 09:39 Dose: Not Given Emtricitabine/Tenofovir (Truvada 200 Mg-300 Mg) 1 tab PO DAILY [facility] Last Admin: 04/07/17 09:39 Dose: Not Given Enoxaparin Sodium (Lovenox) 40 mg SC DAILY [facility] Last Admin: 04/04/17 09:47 Dose: 40 mg Hydromorphone HCl (Dilaudid) 1 mg IVP Q4H PRN PRN Reason: pain Last Admin: 04/07/17 15:02 Dose: 1 mg Piperacillin Sod/Tazobactam Sod (Zosyn 3.375 Gm Iv Premix) 3.375 gm in 50 mls @ 100 mls/hr IVPB Q8H [facility] Last Admin: 04/07/17 13:55 Dose: 100 mls/hr Lactated Ringer's (Lactated Ringer's) 1,000 mls @ 100 mls/hr IV .Q10H [facility] Lidocaine HCl (Lidocaine 2% Viscous) 15 ml PO Q6H PRN PRN Reason: Pain, Mild (1-3) Last Admin: 04/03/17 17:51 Dose: 15 ml Nicotine (Nicoderm Cq) 1 patch TD DAILY [facility] Last Admin: 04/07/17 10:46 Dose: 1 patch Oxycodone/Acetaminophen (Percocet 5/325 Mg Tab) 1 tab PO Q4H PRN PRN Reason: Pain, moderate (4-7) Stop: 04/10/17 09:37 Oxycodone/Acetaminophen (Percocet 5/325 Mg Tab) 2 tab PO Q4H PRN PRN Reason: Pain, severe (8-10) Stop: 04/10/17 09:37 Pantoprazole Sodium (Protonix Ec Tab) 40 mg PO DAILY [facility] Last Admin: 04/07/17 09:39 Dose: Not Given Potassium Chloride (Klor-Con 10) 10 meq PO BRK [facility] Last Admin: 04/07/17 09:38 Dose: Not Given Trimethoprim/Sulfamethoxazole (Bactrim Ds Tab) 1 tab PO Q12H [facility] Last Admin: 04/07/17 05:32 Dose: 1 tab - Labs Labs: 04/06/17 16:47 04/06/17 16:47 - Constitutional Appears: Non-toxic, Cachectic, Chronically Ill - Head Exam Head Exam: ATRAUMATIC - Eye Exam Eye Exam: absent: Periorbital swelling - ENT Exam ENT Exam: Mucous Membranes Dry - Neck Exam Neck Exam: absent: Lymphadenopathy - Respiratory Exam Respiratory Exam: Decreased Breath Sounds, Clear to Ausculation Bilateral - Cardiovascular Exam Cardiovascular Exam: REGULAR RHYTHM, +S1, +S2 - GI/Abdominal Exam GI & Abdominal Exam: Distended, Soft. absent: Tenderness - Rectal Exam Rectal Exam: Deferred - Exam Exam: NORMAL INSPECTION Assessment and Plan (1) Cellulitis of leg Status: Acute (2) IVDU (intravenous drug user) Status: Acute (3) Ulcers of both lower legs with necrosis of muscle Status: Acute (4) AIDS (acquired immune deficiency syndrome) Status: Chronic (5) HIV (human immunodeficiency virus infection) Status: Chronic (6) Abscess and cellulitis Status: Acute
[2017-04-07 16:26] VITALS: RESP 20
[2017-04-07] MEDS: Oxycodone/Acetaminophen 5/325 mg Tab PO PRN (17:45)
[2017-04-08] MEDS: Tmp-Smz 800 mg-160 mg DS Tab PO SCH ×2 (06:22→17:16)
--- NOTE | 2017-04-08 06:39 | OP ---
PROCEDURE DATE: 04/07/2017 PREOPERATIVE DIAGNOSES: Nonhealing left foot ulceration and right foot ulceration. POSTOPERATIVE DIAGNOSES: Nonhealing left foot ulceration and right foot ulceration. NAME OF PROCEDURE: Irrigation and debridement of the left foot ulceration and right foot ulceration, nonhealing. SURGEON: Aidan Rodrigues DPM. SPECIAL NEEDS LIBRARIAN: Efren Ramirez DPM, PGY-1 Zleda Mendoza DPM PGY-2 PGY-2. TYPE OF ANESTHESIA: IV sedation with local. ANESTHESIA ADMINISTERED BY: . INDICATIONS: The patient is a 46-year-old female with the above diagnoses. The patient presents with a nonhealing ulceration to the dorsum of the right midfoot measuring approximately 1 cm x 7 cm x 1 cm with a mixture of fibrotic and granular wound base. Second ulceration is present on the anterior aspect of the left foot measuring approximately 9 cm x 6 cm x 0.3 cm with mainly mixture of fibrotic and granular wound base. The patient has exhausted all conservative treatment at this time and now requires surgical intervention. The patient signed the consent after careful explanation of risks, benefits, complications and alternatives for the surgical procedure. No guarantees were given nor implied. N.p.o. status was confirmed prior to taking the patient to the OR. PREPARATION: The patient was brought into the operating room and placed on the operating room table in supine position. Time-out was performed for identification of the correct patient and the procedure. After induction of IV sedation, the patient received a total of 17 mL of 1:1 mixture of 0.5% Marcaine plain and 1% lidocaine plain in a local V-block fashion to the right foot. An 18 mL of a 1:1 mixture of 0.5% Marcaine plain and 1% lidocaine plain in a local V-block fashion to the left leg surrounding ulceration. Once local anesthesia was achieved, both lower extremities were then prepped and draped in a normal sterile manner and the procedure began. No tourniquet was used during the procedure. DESCRIPTION OF PROCEDURE: Attention was directed to the ulceration on the dorsum of the right midfoot measuring approximately 10 cm x 7 cm x 1 cm with a mixture of fibrotic and granular wound base. The wound edges were hyperkeratotic and intact. Using a Dermal curette, all hypergranular tissue was removed from the wound bed until the wound bed was to the level of the surrounding epithelial skin. Next, using a 10 blade and a pickup, all fibrotic and nonviable tissues from the wound bed and the wound margins were removed until healthy bleeding tissue was visible. The surgical site was then irrigated using a pulse lavage with 3 L of saline solution. At this time, attention was directed to the anterior aspect of the left middle leg measuring approximately 9 cm x 6 cm x 0.3 cm with mainly mixture of fibrotic and granular wound base. Wound edges were hyperkeratotic and intact. Using a Dermal curette, all hypergranular tissue was removed from the wound bed until the wound bed within the level of surrounding epithelial skin. Next, #10 blade and pickup was used to remove all fibrotic and nonviable tissue from the wound base and the wound margins until healthy bleeding tissue was visible. Next, the surgical site was then irrigated using 3 liters of pulse lavage. The ulcerations were then dressed with Xeroform, 4x4, ABD pad, Kerlix and light Coban. The patient tolerated the anesthesia and procedure well and was escorted to the recovery room with vital signs stable and neurovascular status intact to the bilateral lower extremities. The patient is to weight bear as tolerated to both lower extremities using surgical shoe. Podiatry will continue to follow the patient while in-house and will be seen by Dr. Rodrigues upon discharge. The patient is to wear Multi Podus boots at all times in bed. The patient is to keep dressing clean, dry and intact and to be seen at bedside by Dr. Rodrigues. Efren Ramirez DPM Aidan Rodrigues DPM [facility]
--- NOTE | 2017-04-08 07:10 | CP.PCM.PN ---
Subjective - Date & Time of Evaluation Date of Evaluation: 04/08/17 Time of Evaluation: 10:00 - Subjective Subjective: Dr. Juarez, note: Patient seen and examined in room. She is sitting up in bed comfortable with currently no complaints of pain, fever, chills, shortness of breath, nausea, or vomiting. Objective - Vital Signs/Intake and Output Vital Signs (last 24 hours): Temp Pulse Resp BP Pulse Ox 98.3 F 75 20 102/60 98 04/07/17 23:39 04/07/17 23:39 04/07/17 23:39 04/07/17 23:39 04/07/17 23:39 Intake and Output: 04/08/17 04/08/17 06:59 18:59 Intake Total 750 Balance 750 - Medications Medications: Current Medications Acetaminophen (Tylenol 325mg Tab) 650 mg PO Q6 PRN PRN Reason: Pain, Mild (1-3) Dolutegravir Sodium (Tivicay) 50 mg PO DAILY [facility] Last Admin: 04/07/17 09:39 Dose: Not Given Emtricitabine/Tenofovir (Truvada 200 Mg-300 Mg) 1 tab PO DAILY [facility] Last Admin: 04/07/17 09:39 Dose: Not Given Enoxaparin Sodium (Lovenox) 40 mg SC DAILY [facility] Last Admin: 04/04/17 09:47 Dose: 40 mg Hydromorphone HCl (Dilaudid) 1 mg IVP Q4H PRN PRN Reason: pain Last Admin: 04/08/17 03:29 Dose: 1 mg Lactated Ringer's (Lactated Ringer's) 1,000 mls @ 100 mls/hr IV .Q10H [facility] Last Admin: 04/08/17 06:23 Dose: Not Given Lidocaine HCl (Lidocaine 2% Viscous) 15 ml PO Q6H PRN PRN Reason: Pain, Mild (1-3) Last Admin: 04/03/17 17:51 Dose: 15 ml Nicotine (Nicoderm Cq) 1 patch TD DAILY [facility] Last Admin: 04/07/17 10:46 Dose: 1 patch Oxycodone/Acetaminophen (Percocet 5/325 Mg Tab) 1 tab PO Q4H PRN PRN Reason: Pain, moderate (4-7) Stop: 04/10/17 09:37 Oxycodone/Acetaminophen (Percocet 5/325 Mg Tab) 2 tab PO Q4H PRN PRN Reason: Pain, severe (8-10) Stop: 04/10/17 09:37 Last Admin: 04/07/17 17:45 Dose: 2 tab Pantoprazole Sodium (Protonix Ec Tab) 40 mg PO DAILY [facility] Last Admin: 04/07/17 09:39 Dose: Not Given Potassium Chloride (Klor-Con 10) 10 meq PO BRK [facility] Last Admin: 04/07/17 09:38 Dose: Not Given Trimethoprim/Sulfamethoxazole (Bactrim Ds Tab) 1 tab PO Q12H [facility] Last Admin: 04/08/17 06:22 Dose: 1 tab - Labs Labs: 04/06/17 16:47 04/06/17 16:47 - Constitutional Appears: Non-toxic, No Acute Distress - Eye Exam Eye Exam: Normal appearance - Respiratory Exam Respiratory Exam: Clear to Ausculation Bilateral. absent: Rhonchi, Wheezes - Cardiovascular Exam Cardiovascular Exam: REGULAR RHYTHM, RRR, +S1, +S2. absent: Gallop, Rubs - GI/Abdominal Exam GI & Abdominal Exam: Soft, Normal Bowel Sounds. absent: Tenderness - Extremities Exam Additional comments: dressing over the left heel with no evidence of discharge, swelling, or redness. - Back Exam Back Exam: NORMAL INSPECTION - Psychiatric Exam Psychiatric exam: Normal Affect, Normal Mood - Skin Skin Exam: Normal Color Assessment and Plan - Assessment and Plan (Free Text) Assessment: Osteomylitis of the left heel. Podiatry Consulted- Dr. Sharad lees appreciated 04/08/2017: Patient had a PICC line placed today, she s/p day 1. She will need atleast 6 weeks of IV Zosyn per Dr. Peck. She was discharged to [facility] today. B/l wound cx (+) for MSSA, Group G Strep, Corynebacterium ID consult placed- Dr. Carlos Lees appreciated Continue IV abx per ID Zosyn 3.375g q8hrs Bactrim 1T PO q12hrs Pt to be undergoing debridement with Dr. Rodrigues 04/07/2017 Cardiac risk assessment completed by Dr. Taylor LE bone scan: Abnormal study demonstrates increased blood flow hyperemia and delayed radiotracer accumulation at the medial aspect of the proximal right foot at the level of the tarsal bone and right aspect of the right ankle suspicious for osteomyelitis. Bilateral arthritic changes WBC- normal Afebrile Wound care as per Podiatry- cleans with saline and dressed with Telfa, DSD Lidocaine 2% 15mL PO q6hrs prn pain Dilauded 1mg IVP q4hrs prn pain HIV ID consult placed- Dr. Peck- Nick appreciated Tivicay 50mg PO daily Truvada 1T PO daily CD4: 30 CD8: 49 IVDA (heroine) UDS positive for cocaine and opiates Counselled on hazards/cessation Hepatitis panel negative Prophylaxis Protonix 40mg PO daily Nicoderm Patch Lovenox- held for surgery Case discussed with Dr. Juarez All management per Dr. Juarez
[2017-04-08] MEDS: Potassium Chloride 10 mEq ER Tab PO SCH (08:22)
[2017-04-08] MEDS: Pantoprazole 40 mg EC Tab PO SCH (10:39)
[2017-04-08] MEDS: Emtricitabine-Tenofovir 200 mg-300 mg Tab PO SCH (10:39)
[2017-04-08] MEDS: Enoxaparin 40 mg Syringe SC SCH (10:40)
--- NOTE | 2017-04-08 11:13 | CP.PCM.PN ---
Subjective - Date & Time of Evaluation Date of Evaluation: 04/08/17 Time of Evaluation: 10:09 - Subjective Subjective: Podiatry Progress Note- Dr. Aidan Rodrigues 46 year old female with PMHx of HIV, IVDA (heroine) 1 day s/p right foot and left leg wound debridement was seen at bedside for infected b/l lower extremity ulcerations. Patient is seen resting comfortably in bed, in NAD, and in AA0x3. Patient complains of moderate pain to right and left lower extremity at the site of ulceration upon palpation. She denies n/v/sob/cp/chills/f. Dressing to the lower extremities c/d/i. Objective - Vital Signs/Intake and Output Vital Signs (last 24 hours): Temp Pulse Resp BP Pulse Ox 98.3 F 99 H 20 95/65 L 99 04/08/17 08:00 04/08/17 08:00 04/08/17 08:00 04/08/17 08:00 04/08/17 08:00 Intake and Output: 04/08/17 04/08/17 06:59 18:59 Intake Total 750 Balance 750 - Medications Medications: Current Medications Acetaminophen (Tylenol 325mg Tab) 650 mg PO Q6 PRN PRN Reason: Pain, Mild (1-3) Dolutegravir Sodium (Tivicay) 50 mg PO DAILY [facility] Last Admin: 04/08/17 10:39 Dose: 50 mg Emtricitabine/Tenofovir (Truvada 200 Mg-300 Mg) 1 tab PO DAILY [facility] Last Admin: 04/08/17 10:39 Dose: 1 tab Enoxaparin Sodium (Lovenox) 40 mg SC DAILY [facility] Last Admin: 04/08/17 10:40 Dose: 40 mg Hydromorphone HCl (Dilaudid) 1 mg IVP Q4H PRN PRN Reason: pain Last Admin: 04/08/17 08:28 Dose: 1 mg Lactated Ringer's (Lactated Ringer's) 1,000 mls @ 100 mls/hr IV .Q10H [facility] Last Admin: 04/08/17 06:23 Dose: Not Given Lidocaine HCl (Lidocaine 2% Viscous) 15 ml PO Q6H PRN PRN Reason: Pain, Mild (1-3) Last Admin: 04/03/17 17:51 Dose: 15 ml Nicotine (Nicoderm Cq) 1 patch TD DAILY [facility] Last Admin: 04/08/17 10:39 Dose: 1 patch Oxycodone/Acetaminophen (Percocet 5/325 Mg Tab) 1 tab PO Q4H PRN PRN Reason: Pain, moderate (4-7) Stop: 04/10/17 09:37 Oxycodone/Acetaminophen (Percocet 5/325 Mg Tab) 2 tab PO Q4H PRN PRN Reason: Pain, severe (8-10) Stop: 04/10/17 09:37 Last Admin: 04/07/17 17:45 Dose: 2 tab Pantoprazole Sodium (Protonix Ec Tab) 40 mg PO DAILY [facility] Last Admin: 04/08/17 10:39 Dose: 40 mg Potassium Chloride (Klor-Con 10) 10 meq PO BRK [facility] Last Admin: 04/08/17 08:22 Dose: 10 meq Trimethoprim/Sulfamethoxazole (Bactrim Ds Tab) 1 tab PO Q12H [facility] Last Admin: 04/08/17 06:22 Dose: 1 tab - Labs Labs: 04/06/17 16:47 04/06/17 16:47 - Constitutional Appears: Well, Non-toxic, No Acute Distress - Extremities Exam Additional comments: Bilateral lower extremity exam DERM: Healing process RIGHT: Open wound noted to dorsum of right mid-foot measuring 10cm x 7cm x 1cm with granular base. No purulent drainage is noted. Probes to bone. No mal-odor present. Erythema is present around the wound <2cm margins. LEFT: Open wound noted to anterior aspect of left mid-leg 6cm x 5cm x 0.1cm with granular base. appears to be healing well. No drainage is noted. No probes to bone. Mal-odor is present. Erythema is present around the wound <2cm margins. VASC: Palpable DP and PT noted 2/4 bilaterally. DBAS less than 3 seconds noted to all digits bilaterally. ORTHO: Pain on palpation to right foot and left leg. ROM decreased bilaterally distal to knee secondary to guarding. NEURO: Gross sensation nintact bilaterally, tested multiple points in plantar foot with [place] Monofil[employer]. - Neurological Exam Neurological Exam: Alert, Awake, Oriented x3 - Psychiatric Exam Psychiatric exam: Normal Affect, Normal Mood - Skin Skin Exam: Normal Color, Warm Assessment and Plan - Assessment and Plan (Free Text) Assessment: 46 yo female patient with non-diabetic open ulceration to bilateral lower extremities with infection. Plan: Patient was seen, evaluated and treated with all questions answered. Labs and vitals reviewed; Afebrile, WBC 6.3 Discussed in detail with Dr. Rodrigues MRI for Right foot (+) for OM Arterial duplex - Petent arteries Bilateral lower extremity dressed with Xeroform , DSD Continue IV Abx per ID Podiatry will continue to follow in-house
[2017-04-08] MEDS: Oxycodone/Acetaminophen 5/325 mg Tab PO PRN (11:32)
[2017-04-08 11:49] LABS: BASO % 0.8 % (0.0-2.0); HEMOGLOBIN 10.2 g/dL (11.0-16.0); LYMPH # 1.1 K/uL (1.0-4.3); LYMPH % 29.3 % (20.0-40.0); MEAN CELL VOLUME 81.4 fL (81.0-99.0); MEAN CORPUSCULAR HEMOGLOBIN 26.8 pg (27.0-31.0); MEAN PLATELET VOLUME 7.4 fL (7.2-11.7); MONO # 0.3 K/uL (0.0-0.8); MONO % 7.9 % (0.0-10.0); NEUT # 2.4 K/uL (1.8-7.0); NRBC % 0.1 % (0.0-2.0); RBC 3.8 Mil/uL (3.80-5.20); RED CELL DISTRIBUTION WIDTH 18.3 % (11.5-14.5); WHITE BLOOD COUNT 3.9 K/uL (4.8-10.8)
[2017-04-08 12:14] LABS: ALBUMIN 3.5 g/dL (3.5-5.0); ALT/SGPT 11 U/L (9-52); AST/SGOT 23 U/L (14-36); BLOOD UREA NITROGEN 17 mg/dL (7-17); CALCIUM 7.5 mg/dl (8.6-10.4); GFR AFRICAN-AMERICAN > 60; GFR NON-AFRICAN AMERICAN > 60
[2017-04-08 12:21] LABS: ALB/GLOB RATIO 0.7 (1.0-2.1)
--- NOTE | 2017-04-08 13:46 | CP.PCM.PN ---
Subjective - Date & Time of Evaluation Date of Evaluation: 04/08/17 Time of Evaluation: 07:20 - Subjective Subjective: clinically same Objective - Vital Signs/Intake and Output Vital Signs (last 24 hours): Temp Pulse Resp BP Pulse Ox 98.3 F 99 H 20 95/65 L 99 04/08/17 08:00 04/08/17 08:00 04/08/17 08:00 04/08/17 08:00 04/08/17 08:00 Intake and Output: 04/08/17 04/08/17 06:59 18:59 Intake Total 750 Balance 750 - Medications Medications: Current Medications Acetaminophen (Tylenol 325mg Tab) 650 mg PO Q6 PRN PRN Reason: Pain, Mild (1-3) Dolutegravir Sodium (Tivicay) 50 mg PO DAILY [facility] Last Admin: 04/08/17 10:39 Dose: 50 mg Emtricitabine/Tenofovir (Truvada 200 Mg-300 Mg) 1 tab PO DAILY [facility] Last Admin: 04/08/17 10:39 Dose: 1 tab Enoxaparin Sodium (Lovenox) 40 mg SC DAILY [facility] Last Admin: 04/08/17 10:40 Dose: 40 mg Hydromorphone HCl (Dilaudid) 1 mg IVP Q4H PRN PRN Reason: pain Last Admin: 04/08/17 12:39 Dose: 1 mg Lactated Ringer's (Lactated Ringer's) 1,000 mls @ 100 mls/hr IV .Q10H [facility] Last Admin: 04/08/17 06:23 Dose: Not Given Lidocaine HCl (Lidocaine 2% Viscous) 15 ml PO Q6H PRN PRN Reason: Pain, Mild (1-3) Last Admin: 04/03/17 17:51 Dose: 15 ml Nicotine (Nicoderm Cq) 1 patch TD DAILY [facility] Last Admin: 04/08/17 10:39 Dose: 1 patch Oxycodone/Acetaminophen (Percocet 5/325 Mg Tab) 1 tab PO Q4H PRN PRN Reason: Pain, moderate (4-7) Stop: 04/10/17 09:37 Oxycodone/Acetaminophen (Percocet 5/325 Mg Tab) 2 tab PO Q4H PRN PRN Reason: Pain, severe (8-10) Stop: 04/10/17 09:37 Last Admin: 04/08/17 11:32 Dose: 2 tab Pantoprazole Sodium (Protonix Ec Tab) 40 mg PO DAILY [facility] Last Admin: 04/08/17 10:39 Dose: 40 mg Potassium Chloride (Klor-Con 10) 10 meq PO BRK [facility] Last Admin: 04/08/17 08:22 Dose: 10 meq Trimethoprim/Sulfamethoxazole (Bactrim Ds Tab) 1 tab PO Q12H [facility] Last Admin: 04/08/17 06:22 Dose: 1 tab - Labs Labs: 04/08/17 11:41 04/08/17 11:41 - Constitutional Appears: Well - Head Exam Head Exam: ATRAUMATIC, NORMAL INSPECTION, NORMOCEPHALIC - Eye Exam Eye Exam: EOMI, Normal appearance, PERRL Pupil Exam: NORMAL ACCOMODATION, PERRL - ENT Exam ENT Exam: Mucous Membranes Moist, Normal Exam - Neck Exam Neck Exam: Full ROM, Normal Inspection. absent: Lymphadenopathy - Respiratory Exam Respiratory Exam: Decreased Breath Sounds - Cardiovascular Exam Cardiovascular Exam: REGULAR RHYTHM, +S1, +S2 - GI/Abdominal Exam GI & Abdominal Exam: Soft, Diminished Bowel Sounds - Rectal Exam Rectal Exam: Deferred
[2017-04-08] MEDS ORDERED: Piperacill/Tazo 3.375gm in Dex 3.375 GM/50 ML BAG IVPB SCH ×2 (14:00→15:00)
--- NOTE | 2017-04-08 15:28 | CP.PCM.PN ---
Subjective - Date & Time of Evaluation Date of Evaluation: 04/08/17 Time of Evaluation: 14:55 - Subjective Subjective: picc line ordered by medical team as pt will need 6 weeks of iv abx for OM. Consent for PICC insertion signed by myself, pt and migdalia pino. Pt verbalizes understanding of the benefits and risks of picc. she is in agreement to have it inserted today. no further orders. Objective - Vital Signs/Intake and Output Vital Signs (last 24 hours): Temp Pulse Resp BP Pulse Ox 98.3 F 99 H 20 92/62 L 98 04/08/17 08:00 04/08/17 13:26 04/08/17 08:00 04/08/17 13:26 04/08/17 13:26 Intake and Output: 04/08/17 04/08/17 06:59 18:59 Intake Total 750 290 Balance 750 290 - Medications Medications: Current Medications Acetaminophen (Tylenol 325mg Tab) 650 mg PO Q6 PRN PRN Reason: Pain, Mild (1-3) Dolutegravir Sodium (Tivicay) 50 mg PO DAILY [facility] Last Admin: 04/08/17 10:39 Dose: 50 mg Emtricitabine/Tenofovir (Truvada 200 Mg-300 Mg) 1 tab PO DAILY [facility] Last Admin: 04/08/17 10:39 Dose: 1 tab Enoxaparin Sodium (Lovenox) 40 mg SC DAILY [facility] Last Admin: 04/08/17 10:40 Dose: 40 mg Hydromorphone HCl (Dilaudid) 1 mg IVP Q4H PRN PRN Reason: pain Last Admin: 04/08/17 12:39 Dose: 1 mg Lactated Ringer's (Lactated Ringer's) 1,000 mls @ 100 mls/hr IV .Q10H [facility] Last Admin: 04/08/17 06:23 Dose: Not Given Piperacillin Sod/Tazobactam Sod (Zosyn 3.375 Gm Iv Premix) 3.375 gm in 50 mls @ 100 mls/hr IVPB Q8H [facility] Last Admin: 04/08/17 14:50 Dose: 100 mls/hr Lidocaine HCl (Lidocaine 2% Viscous) 15 ml PO Q6H PRN PRN Reason: Pain, Mild (1-3) Last Admin: 04/03/17 17:51 Dose: 15 ml Nicotine (Nicoderm Cq) 1 patch TD DAILY [facility] Last Admin: 04/08/17 10:39 Dose: 1 patch Oxycodone/Acetaminophen (Percocet 5/325 Mg Tab) 1 tab PO Q4H PRN PRN Reason: Pain, moderate (4-7) Stop: 04/10/17 09:37 Oxycodone/Acetaminophen (Percocet 5/325 Mg Tab) 2 tab PO Q4H PRN PRN Reason: Pain, severe (8-10) Stop: 04/10/17 09:37 Last Admin: 04/08/17 11:32 Dose: 2 tab Pantoprazole Sodium (Protonix Ec Tab) 40 mg PO DAILY [facility] Last Admin: 04/08/17 10:39 Dose: 40 mg Potassium Chloride (Klor-Con 10) 10 meq PO BRK [facility] Last Admin: 04/08/17 08:22 Dose: 10 meq Trimethoprim/Sulfamethoxazole (Bactrim Ds Tab) 1 tab PO Q12H [facility] Last Admin: 04/08/17 06:22 Dose: 1 tab - Labs Labs: 04/08/17 11:41 04/08/17 11:41
--- NOTE | 2017-04-08 15:56 | RAD ---
HISTORY: verify right PICC COMPARISON: 03/01/2015 FINDINGS: LUNGS: No active pulmonary disease. PLEURA: No significant pleural effusion identified, no pneumothorax apparent. CARDIOVASCULAR: New right PICC catheter terminates in the region of the superior vena cava just above cavoatrial junction. OSSEOUS STRUCTURES: No significant abnormalities. VISUALIZED UPPER ABDOMEN: Normal. OTHER FINDINGS: None. IMPRESSION: New right PICC catheter as above. Otherwise unremarkable.
[2017-04-08 16:35] VITALS: BP 97/63; PULSE 95; TEMP 98.1; O2SAT 99
--- NOTE | 2017-04-08 18:20 | CP.PCM.PN ---
Subjective - Date & Time of Evaluation Date of Evaluation: 04/08/17 Time of Evaluation: 09:00 - Subjective Subjective: for picc line needs 6 weeks icv rx Objective - Vital Signs/Intake and Output Vital Signs (last 24 hours): Temp Pulse Resp BP Pulse Ox 98.1 F 95 H 20 97/63 L 99 04/08/17 16:00 04/08/17 16:00 04/08/17 16:00 04/08/17 16:00 04/08/17 16:00 Intake and Output: 04/08/17 04/08/17 06:59 18:59 Intake Total 750 290 Balance 750 290 - Medications Medications: Current Medications Acetaminophen (Tylenol 325mg Tab) 650 mg PO Q6 PRN PRN Reason: Pain, Mild (1-3) Dolutegravir Sodium (Tivicay) 50 mg PO DAILY [facility] Last Admin: 04/08/17 10:39 Dose: 50 mg Emtricitabine/Tenofovir (Truvada 200 Mg-300 Mg) 1 tab PO DAILY [facility] Last Admin: 04/08/17 10:39 Dose: 1 tab Enoxaparin Sodium (Lovenox) 40 mg SC DAILY [facility] Last Admin: 04/08/17 10:40 Dose: 40 mg Hydromorphone HCl (Dilaudid) 1 mg IVP Q4H PRN PRN Reason: pain Last Admin: 04/08/17 16:43 Dose: 1 mg Lactated Ringer's (Lactated Ringer's) 1,000 mls @ 100 mls/hr IV .Q10H [facility] Last Admin: 04/08/17 06:23 Dose: Not Given Piperacillin Sod/Tazobactam Sod (Zosyn 3.375 Gm Iv Premix) 3.375 gm in 50 mls @ 100 mls/hr IVPB Q8H [facility] Last Admin: 04/08/17 14:50 Dose: 100 mls/hr Lidocaine HCl (Lidocaine 2% Viscous) 15 ml PO Q6H PRN PRN Reason: Pain, Mild (1-3) Last Admin: 04/03/17 17:51 Dose: 15 ml Nicotine (Nicoderm Cq) 1 patch TD DAILY [facility] Last Admin: 04/08/17 10:39 Dose: 1 patch Oxycodone/Acetaminophen (Percocet 5/325 Mg Tab) 1 tab PO Q4H PRN PRN Reason: Pain, moderate (4-7) Stop: 04/10/17 09:37 Oxycodone/Acetaminophen (Percocet 5/325 Mg Tab) 2 tab PO Q4H PRN PRN Reason: Pain, severe (8-10) Stop: 04/10/17 09:37 Last Admin: 04/08/17 11:32 Dose: 2 tab Pantoprazole Sodium (Protonix Ec Tab) 40 mg PO DAILY [facility] Last Admin: 04/08/17 10:39 Dose: 40 mg Potassium Chloride (Klor-Con 10) 10 meq PO BRK [facility] Last Admin: 04/08/17 08:22 Dose: 10 meq Trimethoprim/Sulfamethoxazole (Bactrim Ds Tab) 1 tab PO Q12H [facility] Last Admin: 04/08/17 17:16 Dose: 1 tab - Labs Labs: 04/08/17 11:41 04/08/17 11:41 - Constitutional Appears: Non-toxic - Head Exam Head Exam: NORMOCEPHALIC - Eye Exam Eye Exam: PERRL - ENT Exam ENT Exam: Mucous Membranes Dry - Neck Exam Neck Exam: absent: Lymphadenopathy - Respiratory Exam Respiratory Exam: Decreased Breath Sounds - Cardiovascular Exam Cardiovascular Exam: REGULAR RHYTHM - GI/Abdominal Exam GI & Abdominal Exam: Distended, Soft - Rectal Exam Rectal Exam: Deferred - Exam Exam: NORMAL INSPECTION Assessment and Plan (1) Cellulitis of leg Status: Acute (2) IVDU (intravenous drug user) Status: Acute (3) Ulcers of both lower legs with necrosis of muscle Status: Acute (4) AIDS (acquired immune deficiency syndrome) Status: Chronic (5) HIV (human immunodeficiency virus infection) Status: Chronic (6) Abscess and cellulitis Status: Acute
--- NOTE | 2017-04-09 14:55 | CARD ---
APPROVED REPORT EKG Measurement Heart [id number] IL [id number] [id number] <Conclusion> Normal sinus rhythm Voltage criteria for left ventricular hypertrophy Abnormal ECG
== END 2017-04-08 20:15 | DRG 977 ==
LOC: C.ER 07:01 → C.9E 10:23 → C.5S 12:52 → C.3T 04-04 19:17
PROVIDERS: ADMIT Internal Medicine Nephrology; ATTEND Internal Medicine Nephrology
PROC: HZ56ZZZ Individual Psychotherapy for Substance Abuse Treatment, Psychoeducation (ICD-10-PCS; 2017-04-02)
PROC: HZ59ZZZ Individual Psychotherapy for Substance Abuse Treatment, Supportive (ICD-10-PCS; 2017-04-02)
PROC: 0HBMXZZ Excision of Right Foot Skin, External Approach (ICD-10-PCS; 2017-04-07)
PROC: 0HBNXZZ Excision of Left Foot Skin, External Approach (ICD-10-PCS; principal; 2017-04-07 07:45)
PROC: 02HV33Z Insertion of Infusion Device into Superior Vena Cava, Percutaneous Approach (ICD-10-PCS; 2017-04-08)
DX: B20 Human immunodeficiency virus [HIV] disease (principal); F11.20 Opioid dependence, uncomplicated; M86.9 Osteomyelitis, unspecified; L97.929 Non-pressure chronic ulcer of unspecified part of left lower leg with unspecified severity; L97.919 Non-pressure chronic ulcer of unspecified part of right lower leg with unspecified severity; L03.116 Cellulitis of left lower limb; L03.115 Cellulitis of right lower limb; F14.10 Cocaine abuse, uncomplicated; F41.9 Anxiety disorder, unspecified; F17.210 Nicotine dependence, cigarettes, uncomplicated

== ENCOUNTER 2017-07-17 11:02 | Inpatient (IN) | payer MEDICARE ==
--- NOTE | 2017-07-17 11:34 | C.PDOC ---
History Of Present Illness 47 Y/O FEMALE PRESENTS TO ED WITH COMPLAINTS OF RECURRENT RIGHT FOOT INFECTION FOR SEVEN WEEKS. PATIENT STATES RIGHT FOOT PROCEDURE 04/2017, WAS HEALING WELL UNTIL NOW. INCREASED PAIN, REDNESS, FOUL SWELL, INCREASING ULCER SIZE. NO ABX FOR CURRENT SX. PATIENT HAS HISTORY OF HIV, NONCOMPLIANT W MEDS SINCE 05/2017 DUE TO LACK OF INSURANCE. UNK CD4, VL EXAM MILD DIST NONTOXIC SKIN +CELLULITIS W ULCERATION R FOOT W EXTENSION TO LOWER R LEG, +FOUL SMELL EXT R FOOT 1+ EDEMA NON PITTING. ATRAUM. NO CREPITUS REMAINDER NEG Time Seen by Provider: 07/17/17 11:17 Chief Complaint (Nursing): Abnormal Skin Integrity History Per: Patient History/Exam Limitations: no limitations Onset/Duration Of Symptoms: Hrs Current Symptoms Are (Timing): Still Present Past Medical History Reviewed: Historical Data, Nursing Documentation, Vital Signs Vital Signs: Last Vital Signs Temp 99.2 F 07/17/17 11:55 Pulse 98 H 07/17/17 11:55 Resp 20 07/17/17 11:55 BP 125/85 07/17/17 11:55 Pulse Ox 95 07/17/17 11:55 - Medical History PMH: Anxiety, Bronchitis, HIV (HIV postive almost 20 yrs), Pneumonia Surgical History: No Surg Hx - [facility] Procedures DRAINAGE OF RIGHT LOWER ARM SKIN, EXTERNAL APPROACH (03/01/15) DX ULTRASOUND NEC (06/14/14) EXCISION OF LEFT FOOT SKIN, EXTERNAL APPROACH (04/01/17) EXCISION OF RIGHT FOOT SKIN, EXTERNAL APPROACH (04/01/17) INDIV PSYCHOTHERAPY FOR SUBSTANCE ABUSE TREATMENT, SUPPORT (04/01/17) INDIV PSYCHOTHERAPY FOR SUBSTANCE ABUSE, PSYCHOEDUCATION (04/01/17) INSERTION OF INFUSION DEV INTO SUP VENA CAVA, PERC APPROACH (04/01/17) MEDS MGMT FOR SUBSTANCE ABUSE TREATMENT, METHADONE MAINT (03/01/15) OTHER SKIN & SUBQ I D (06/14/14) Family History: States: No Known Family Hx - Social History Hx Tobacco Use: Yes Hx Alcohol Use: Yes Hx Substance Use: Yes (Cocaine,Heroin) - Immunization History Hx Tetanus Toxoid Vaccination: No Hx Influenza Vaccination: No Hx Pneumococcal Vaccination: No Review Of Systems Constitutional: Negative for: Fever, Chills Cardiovascular: Negative for: Chest Pain Respiratory: Negative for: Shortness of Breath Gastrointestinal: Negative for: Nausea, Vomiting Musculoskeletal: Positive for: Foot Pain Skin: Negative for: Rash Physical Exam - Physical Exam Appears: Non-toxic, Other (Mild distress) Skin: Warm, Dry, Other (+cellulitis w/ulceration to right foot w/extension to lower right leg. +Foul smell ) Head: Atraumatic, Normacephalic Oral Mucosa: Moist Neck: Normal ROM, Supple Cardiovascular: Rhythm Regular Respiratory: Normal Breath Sounds, No Rales, No Rhonchi, No Wheezing Extremity: Pedal Edema (+1 to right foot), Capillary Refill (<2 seconds), No Deformity Pulses: Left Dorsalis Pedis: Normal, Right Dorsalis Pedis: Normal Neurological/Psych: Oriented x3, Normal Speech, Normal Cognition, Normal Motor, Normal Sensation ED Course And Treatment - Laboratory Results Result Diagrams: 07/17/17 11:54 07/17/17 11:54 O2 Sat by Pulse Oximetry: 95 (RA) Pulse Ox Interpretation: Normal Progress - Re-Evaluation Re-evaluation Note: 07/17/17 11:50 D/W PODIATRY RES WILL EVAL IN ER 07/17/17 12:25 D/W DR Enrique RAMIREZ: ADMITTED PT LAST TIME. AWARE OF ER FINDINGS, WILL ADMIT - Data Reviewed Data Reviewed: Lab, Diagnostic imaging, EKG, Old records Disposition Counseled Patient/Family Regarding: Studies Performed, Diagnosis - Disposition Disposition: HOSPITALIZED Disposition Time: 12:25 Condition: SERIOUS Forms: [facility] (Haitian) - POA Present On Arrival: None - Clinical Impression Clinical Impression: IVDU (intravenous drug user), HIV (human immunodeficiency virus infection), Cellulitis of leg, Leg ulcer - Scribe Statement The provider has reviewed the documentation as recorded by the Syed Sanchez All medical record entries made by the Syed were at my direction and personally dictated by me. I have reviewed the chart and agree that the record accurately reflects my personal performance of the history, physical exam, medical decision making, and the department course for this patient. I have also personally directed, reviewed, and agree with the discharge instructions and disposition. Decision To Admit - Pt Status Changed To: Hospital Disposition Of: Inpatient - Admit Certification Admit to Inpatient:: After my assessment, the patient will require hospitalization for at least two midnights. This is because of the severity of symptoms shown, intensity of services needed, and/or the medical risk in this patient being treated as an outpatient. - InPatient: Physician Admission Certification: I certify that this patient requires 2 or more midnights of care for the following reason:: SEE NOTE - . Bed Request Type: Regular Admitting Physician: Gill Ramirez Patient Diagnosis: IVDU (intravenous drug user), HIV (human immunodeficiency virus infection), Cellulitis of leg, Leg ulcer
--- NOTE | 2017-07-17 11:55 | CP.PCM.CON ---
History of Present Illness - History of Present Illness History of Present Illness: Podiatry Consult Note: Dr. Rodrigues/Dr. Meyer: This is a 47 yo female pt seen in ED today for complaint of R foot infection. Pt says that she had surgery with Dr. Rodrigues April of this year for the same problem. Says she had a PICC line and went to a rehab facility for 6 weeks IV abx for R foot infection. Pt says the left leg has healed, but right leg is getting worse over the past few weeks. Pt reports non-compliance with all medications since 05/2017 due to insurance issues. Has failed to follow up with podiatry as outpatient. She reports pain as "12 out of 10" on a VAS scale, reports throbbing to the wound site. Denies any calf pain. Denies f/n/v/c/sob/ cp at this time. Pt is repeatedly asking for more pain medication during interview. PMH: HIV+, anxiety, pneumonia, bronchitis ALL: NKDA PSH: debridement of bilateral foot/leg ulcers (04/07/17) Soc. Hx: IV drug user (heroin), smokes 6 cigarettes/day, denies etoh use Review of Systems - Review of Systems Review of Systems: all systems reviewed and found neg outside hpi Past Patient History - Past Medical History & Family History Past Medical History?: Yes - Past Social History Smoking Status: Never Smoked - CARDIAC Hx Cardiac Disorders: No - PULMONARY Hx Bronchitis: Yes Hx Pneumonia: Yes - NEUROLOGICAL Hx Neurological Disorder: No - HEENT Hx HEENT Problems: No - RENAL Hx Chronic Kidney Disease: No - ENDOCRINE/METABOLIC Hx Endocrine Disorders: No - HEMATOLOGICAL/ONCOLOGICAL Hx Human Immunodeficiency Virus (HIV): Yes (HIV postive almost 20 yrs) - INTEGUMENTARY Hx Dermatological Problems: No - MUSCULOSKELETAL/RHEUMATOLOGICAL Hx Musculoskeletal Disorders: Yes Hx Falls: No - GASTROINTESTINAL Hx Gastrointestinal Disorders: Yes Hx Clostridium Difficile: Yes Hx Diarrhea: Yes - GENITOURINARY/GYNECOLOGICAL Hx Genitourinary Disorders: No - PSYCHIATRIC Hx Anxiety: Yes Hx Substance Use: Yes (Cocaine,Heroin) - SURGICAL HISTORY Hx Surgeries: No Other/Comment: DENIES - ANESTHESIA Hx Anesthesia: No Hx Anesthesia Reactions: No Hx Malignant Hyperthermia: No Meds Allergies/Adverse Reactions: Allergies Allergy/AdvReac Type Severity Reaction Status Date / Time No Known Allergies Allergy Verified 07/17/17 11:11 - Medications Medications: Current Medications Cefazolin Sodium 1,000 mg/ (Sodium Chloride) 50 mls @ 100 mls/hr IVPB Q8H [facility] PRN Reason: Protocol Vancomycin HCl (Vancomycin 1gm In Normal Saline Addvantage) 1 gm in 250 mls @ 166.667 mls/hr IV STAT [facility] PRN Reason: Protocol Physical Exam - Constitutional Appears: Non-toxic, No Acute Distress - Extremities Exam Extremities exam: Negative for: calf tenderness Additional comments: RLE exam: VASC: pedal pulses are fully palpable, skin temp runs warm to warm with increased callor noted to anterior distal leg and dorsal-medial foot, moderate edema noted to dorsal-medial midfoot NEURO: gross and protective pedal sensation are intact DERM: erythema is noted from mid-foot and extends proximally to distal 1/2 of the leg, there is a superficial ulceration noted to medial ankle measures 5.0x2.0x0.3cm with fibrous base, there is noemy-wound erythema, neg fluctuance, neg PTB, mild malodor, there is scaling noted noemy-wound, no fluctuance MSK: tenderness to palpation of central aspect of wound and medial ankle, MMT is 5/5 all directions - Psychiatric Exam Psychiatric exam: Anxious, Normal Mood Results - Vital Signs Recent Vital Signs: Last Vital Signs Temp 98.4 F 07/17/17 11:09 Pulse 107 H 07/17/17 11:09 Resp 16 07/17/17 11:09 BP 117/85 07/17/17 11:09 Pulse Ox 95 07/17/17 11:54 - Labs Result Diagrams: 07/17/17 11:54 07/17/17 11:54 Assessment & Plan - Assessment and Plan (Free Text) Assessment: 47 yo female pt w/ superficial ulceration (chronic) and 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 Meyer (covering for ) chart, labs and vitals reviewed: afebrile, decreased wbc 3.9 ESR, CRP ordered R foot and tib-fib xrays reviewed: no acute findings RLE bone scan (04/03/17): + OM tarsal bones and medial ankle (completed 6 weeks IV abx) f/u wound cx plan for admission for IV abx, IV abx as per ID wound cleansed with saline, dressed xeroform, DSD sx shoe ordered, wbat will follow
[2017-07-17] MEDS ORDERED: Morphine 4 MG/ML VIAL ONE (11:59)
[2017-07-17] MEDS ORDERED: Vancomycin 1 GM 1 GM/250 ML BAG IV SCH (12:00)
[2017-07-17 12:01] LABS: BASO % 0.3 % (0.0-2.0); HEMOGLOBIN 10.4 g/dL (11.0-16.0); LYMPH # 0.4 K/uL (1.0-4.3); LYMPH % 11.3 % (20.0-40.0); MEAN CELL VOLUME 80.4 fL (81.0-99.0); MEAN CORPUSCULAR HEMOGLOBIN 27.2 pg (27.0-31.0); MEAN CORPUSCULAR HGB CONC 33.8 g/dL (33.0-37.0); MEAN PLATELET VOLUME 8.7 fL (7.2-11.7); MONO # 0.2 K/uL (0.0-0.8); NEUT # 3.3 K/uL (1.8-7.0); NEUT % 83.4 % (50.0-75.0); RBC 3.82 Mil/uL (3.80-5.20); RED CELL DISTRIBUTION WIDTH 16.1 % (11.5-14.5); WHITE BLOOD COUNT 3.9 K/uL (4.8-10.8)
[2017-07-17] MEDS ORDERED: Vancomycin 1 GM 1 GM/250 ML BAG IV STA (12:05)
[2017-07-17 12:11] LABS: BLOOD UREA NITROGEN 14 mg/dL (7-17); CALCIUM 8.4 mg/dl (8.6-10.4); GFR AFRICAN-AMERICAN > 60; GFR NON-AFRICAN AMERICAN > 60
[2017-07-17 12:13] LABS: VENOUS BLOOD GAS BASE EXCESS 9.7 mmol/L (0.0-2.0); VENOUS BLOOD GAS PCO2 63 mmHg (40-60); VENOUS BLOOD GAS PO2 13 mm/Hg (30-55); VENOUS BLOOD PH 7.38 (7.32-7.43)
[2017-07-17] MEDS ORDERED: Potassium Chloride 20 mEq/15 ml LIQ UD PO STA ×2 (12:13→19:27)
[2017-07-17] MEDS ORDERED: Vancomycin 1 gm/NS 200 ml 1 GM/200 ML BAG IVPB STA (12:20)
--- NOTE | 2017-07-17 12:23 | RAD ---
PROCEDURE: CHEST RADIOGRAPH, 1 VIEW HISTORY: MED CLEAR, HIV COMPARISON: Chest radiograph dated 06/21. FINDINGS: LUNGS: Clear. PLEURA: No pneumothorax or pleural fluid seen. CARDIOVASCULAR: Normal. OSSEOUS STRUCTURES: No significant abnormalities. VISUALIZED UPPER ABDOMEN: Normal. OTHER FINDINGS: None. IMPRESSION: No active disease.
[2017-07-17] MEDS ORDERED: Potassium Chloride 20 mEq/15 ml LIQ UD ONE (12:24)
--- NOTE | 2017-07-17 12:24 | RAD ---
PROCEDURE: Right Foot Radiographs. HISTORY: ULCER COMPARISON: None. FINDINGS: BONES: No acute fracture. JOINTS: Unremarkable. SOFT TISSUES: Normal. OTHER FINDINGS: None. IMPRESSION: No demonstrated fracture or dislocation.
--- NOTE | 2017-07-17 12:25 | RAD ---
PROCEDURE: Radiographs of the right tibia and fibula. HISTORY: CELLULITIS COMPARISON: Tibia and fibula radiographs dated 04/01/2017. TECHNIQUE: Frontal and lateral views obtained. FINDINGS: BONES: No fracture or destructive lesion. JOINT SPACES: Unremarkable. OTHER FINDINGS: None. IMPRESSION: Unremarkable radiographs of the right tibia and fibula.
--- NOTE | 2017-07-17 15:59 | CP.PCM.HP ---
Past Patient History - Past Medical History & Family History Past Medical History?: Yes - Past Social History Smoking Status: Never Smoked - CARDIAC Hx Cardiac Disorders: No - PULMONARY Hx Bronchitis: Yes Hx Pneumonia: Yes - NEUROLOGICAL Hx Neurological Disorder: No - HEENT Hx HEENT Problems: No - RENAL Hx Chronic Kidney Disease: No - ENDOCRINE/METABOLIC Hx Endocrine Disorders: No - HEMATOLOGICAL/ONCOLOGICAL Hx Human Immunodeficiency Virus (HIV): Yes (HIV postive almost 20 yrs) - INTEGUMENTARY Hx Dermatological Problems: No - MUSCULOSKELETAL/RHEUMATOLOGICAL Hx Musculoskeletal Disorders: Yes Hx Falls: No - GASTROINTESTINAL Hx Gastrointestinal Disorders: Yes Hx Clostridium Difficile: Yes Hx Diarrhea: Yes - GENITOURINARY/GYNECOLOGICAL Hx Genitourinary Disorders: No - PSYCHIATRIC Hx Anxiety: Yes Hx Substance Use: Yes (Cocaine,Heroin) - SURGICAL HISTORY Hx Surgeries: No Other/Comment: DENIES - ANESTHESIA Hx Anesthesia: No Hx Anesthesia Reactions: No Hx Malignant Hyperthermia: No Meds Allergies/Adverse Reactions: Allergies Allergy/AdvReac Type Severity Reaction Status Date / Time No Known Allergies Allergy Verified 07/17/17 11:11 Physical Exam - Constitutional Appears: Well - Head Exam Head Exam: ATRAUMATIC, NORMAL INSPECTION, NORMOCEPHALIC - ENT Exam ENT Exam: Mucous Membranes Moist, Normal Exam - Neck Exam Neck exam: Positive for: Normal Inspection - Respiratory Exam Respiratory Exam: Decreased Breath Sounds - Cardiovascular Exam Cardiovascular Exam: REGULAR RHYTHM, +S1, +S2 - GI/Abdominal Exam GI & Abdominal Exam: Diminished Bowel Sounds, Soft - Rectal Exam Rectal Exam: Deferred Results - Vital Signs Recent Vital Signs: Last Vital Signs Temp 100.9 F H 07/17/17 13:05 Pulse 84 07/17/17 13:05 Resp 18 07/17/17 13:05 BP 150/98 H 07/17/17 13:05 Pulse Ox 99 07/17/17 13:05 - Labs Result Diagrams: 07/17/17 11:54 07/17/17 11:54 Labs: Laboratory Results - last 24 hr 07/17/17 07/17/17 07/17/17 11:54 11:54 12:05 WBC 3.9 L RBC 3.82 Hgb 10.4 L Hct 30.7 L MCV 80.4 L MCH 27.2 MCHC 33.8 RDW 16.1 H Plt Count 235 D MPV 8.7 Neut % (Auto) 83.4 H Lymph % (Auto) 11.3 L Bonner % (Auto) 5.0 Eos % (Auto) 0.0 Baso % (Auto) 0.3 Neut # (Auto) 3.3 Lymph # (Auto) 0.4 L Bonner # (Auto) 0.2 Eos # (Auto) 0.0 Baso # (Auto) 0.0 pO2 13 L VBG pH 7.38 VBG pCO2 63 H VBG HCO3 30.2 VBG Total CO2 39.2 H VBG O2 Sat (Calc) 22.5 L VBG Base Excess 9.7 H VBG Potassium 2.6 L Glucose 95 Lactate 1.3 Sodium 144 144.0 Potassium 3.1 L Chloride 99 105.0 Carbon Dioxide 32 H Anion Gap 16 BUN 14 Creatinine 0.6 L Est GFR ( Amer) > 60 Est GFR (Non-Af Amer) > 60 Random Glucose 107 H Calcium 8.4 L Venous Blood Potassium 2.6 L
[2017-07-17] MEDS: Piperacill/Tazo 3.375gm in Dex 3.375 GM/50 ML BAG IVPB SCH (17:49)
[2017-07-17] MEDS: Morphine 4 MG/ML VIAL IVP PRN (17:55)
[2017-07-18] MEDS: Morphine 4 MG/ML VIAL IVP PRN ×6 (00:01→22:53)
[2017-07-18] MEDS: Piperacill/Tazo 3.375gm in Dex 3.375 GM/50 ML BAG IVPB SCH ×3 (02:45→17:02)
[2017-07-18] MEDS: Enoxaparin 40 mg Syringe SC SCH (11:14)
[2017-07-18] MEDS: Vancomycin 1 gm/NS 200 ml 1 GM/200 ML BAG IVPB SCH (11:15)
--- NOTE | 2017-07-18 12:15 | CP.PCM.PN ---
Subjective - Date & Time of Evaluation Date of Evaluation: 07/18/17 Time of Evaluation: 07:00 - Subjective Subjective: clinically same Objective - Vital Signs/Intake and Output Vital Signs (last 24 hours): Temp Pulse Resp BP Pulse Ox 99.7 F H 85 20 130/83 97 07/18/17 08:00 07/18/17 08:00 07/18/17 08:00 07/18/17 08:00 07/18/17 08:00 Intake and Output: 07/18/17 07/18/17 06:59 18:59 Intake Total 410 Balance 410 - Medications Medications: Current Medications Enoxaparin Sodium (Lovenox) 40 mg SC DAILY [facility] Last Admin: 07/18/17 11:14 Dose: 40 mg Vancomycin/Sodium Chloride (Vancomycin 1 Gm/Ns 200 Ml) 1 gm in 200 mls @ 133.333 mls/hr IVPB DAILY [facility] PRN Reason: Protocol Stop: 07/23/17 10:01 Last Admin: 07/18/17 11:15 Dose: 133.333 mls/hr Piperacillin Sod/Tazobactam Sod (Zosyn 3.375 Gm Iv Premix) 3.375 gm in 50 mls @ 100 mls/hr IVPB Q8H [facility] PRN Reason: Protocol Last Admin: 07/18/17 11:15 Dose: 100 mls/hr Morphine Sulfate (Morphine) 2 mg IVP Q4 PRN PRN Reason: Pain, severe (8-10) Last Admin: 07/18/17 09:52 Dose: 2 mg - Labs Labs: 07/17/17 11:54 07/17/17 11:54 - Constitutional Appears: Well - Head Exam Head Exam: ATRAUMATIC, NORMAL INSPECTION, NORMOCEPHALIC - Eye Exam Eye Exam: EOMI, Normal appearance, PERRL Pupil Exam: NORMAL ACCOMODATION, PERRL - ENT Exam ENT Exam: Mucous Membranes Moist, Normal Exam - Neck Exam Neck Exam: Full ROM, Normal Inspection. absent: Lymphadenopathy - Respiratory Exam Respiratory Exam: Decreased Breath Sounds - Cardiovascular Exam Cardiovascular Exam: REGULAR RHYTHM, +S1, +S2 - GI/Abdominal Exam GI & Abdominal Exam: Soft, Diminished Bowel Sounds - Rectal Exam Rectal Exam: Deferred
[2017-07-18] MEDS ORDERED: Potassium Chloride 20 mEq ER Tab PO STA (15:41)
--- NOTE | 2017-07-18 15:54 | CP.PCM.PN ---
Subjective - Date & Time of Evaluation Date of Evaluation: 07/18/17 Time of Evaluation: 13:00 - Subjective Subjective: Podiatry Progress Note- Dr. Centeno/Dr. Rodrigues 47 yo female patient seen and evaluated for chronic superficial ulceration and cellulitis of RLE with chronic OM R foot. Patient is seen resting comfortably in bed, in NAD, and AA0x3. Reports same continue pain to the right foot at site of ulceration. Patient reports that she slept okay. Objective - Vital Signs/Intake and Output Vital Signs (last 24 hours): Temp Pulse Resp BP Pulse Ox 99.7 F H 85 20 130/83 97 07/18/17 08:00 07/18/17 08:00 07/18/17 08:00 07/18/17 08:00 07/18/17 08:00 Intake and Output: 07/18/17 07/18/17 06:59 18:59 Intake Total 410 650 Balance 410 650 - Medications Medications: Current Medications Enoxaparin Sodium (Lovenox) 40 mg SC DAILY [facility] Last Admin: 07/18/17 11:14 Dose: 40 mg Vancomycin/Sodium Chloride (Vancomycin 1 Gm/Ns 200 Ml) 1 gm in 200 mls @ 133.333 mls/hr IVPB DAILY [facility] PRN Reason: Protocol Stop: 07/23/17 10:01 Last Admin: 07/18/17 11:15 Dose: 133.333 mls/hr Piperacillin Sod/Tazobactam Sod (Zosyn 3.375 Gm Iv Premix) 3.375 gm in 50 mls @ 100 mls/hr IVPB Q8H [facility] PRN Reason: Protocol Last Admin: 07/18/17 11:15 Dose: 100 mls/hr Morphine Sulfate (Morphine) 2 mg IVP Q4 PRN PRN Reason: Pain, severe (8-10) Last Admin: 07/18/17 14:38 Dose: 2 mg - Labs Labs: 07/17/17 11:54 07/17/17 11:54 - Constitutional Appears: Well, Non-toxic, No Acute Distress - Extremities Exam Extremities Exam: absent: Calf Tenderness Additional comments: RLE exam: VASC: pedal pulses are fully palpable, skin temp runs warm to warm with increased callor noted to anterior distal leg and dorsal-medial foot, moderate edema noted to dorsal-medial midfoot NEURO: gross and protective pedal sensation are intact DERM: erythema is noted from mid-foot and extends proximally to distal 1/2 of the leg, there is a superficial ulceration noted to medial ankle measures 5.0x2.0x0.3cm with fibrous base, there is noemy-wound erythema, neg fluctuance, neg PTB, mild malodor, there is scaling noted noemy-wound, no fluctuance MSK: tenderness to palpation of central aspect of wound and medial ankle, MMT is 5/5 all directions - Neurological Exam Neurological Exam: Alert, Awake, Oriented x3 - Psychiatric Exam Psychiatric exam: Normal Affect, Normal Mood Assessment and Plan - Assessment and Plan (Free Text) Assessment: 47 yo female patient seen and evaluated for chronic superficial ulceration and cellulitis of RLE with chronic OM R foot. Plan: Pt S&E at bedside Plan discussed with attending Dr. Meyer (covering for ) chart, labs and vitals reviewed: afebrile, decreased wbc 3.9 (07/17/17) ESR-67, CRP >15 R foot and tib-fib xrays reviewed: no acute findings RLE bone scan (04/03/17): + OM tarsal bones and medial ankle (completed 6 weeks IV abx) f/u wound cx c/w IV abx, IV abx as per ID wound cleansed with saline, dressed xeroform, DSD sx shoe ordered, wbat will follow
[2017-07-19] MEDS: Piperacill/Tazo 3.375gm in Dex 3.375 GM/50 ML BAG IVPB SCH ×3 (01:59→17:25)
[2017-07-19] MEDS: Morphine 4 MG/ML VIAL IVP PRN ×5 (03:05→20:00)
[2017-07-19 08:57] LABS: HEMOGLOBIN 11.4 g/dL (11.0-16.0); MEAN CELL VOLUME 80.8 fL (81.0-99.0); MEAN CORPUSCULAR HEMOGLOBIN 27.2 pg (27.0-31.0); MEAN CORPUSCULAR HGB CONC 33.7 g/dL (33.0-37.0); MEAN PLATELET VOLUME 8.7 fL (7.2-11.7); RBC 4.17 Mil/uL (3.80-5.20); RED CELL DISTRIBUTION WIDTH 15.9 % (11.5-14.5); WHITE BLOOD COUNT 3.1 K/uL (4.8-10.8)
[2017-07-19 09:00] LABS: BLOOD UREA NITROGEN 13 mg/dL (7-17); CALCIUM 8.4 mg/dl (8.6-10.4); GFR AFRICAN-AMERICAN > 60; GFR NON-AFRICAN AMERICAN > 60
[2017-07-19] MEDS: Enoxaparin 40 mg Syringe SC SCH (09:37)
[2017-07-19] MEDS: Vancomycin 1 gm/NS 200 ml 1 GM/200 ML BAG IVPB SCH (10:00)
[2017-07-19] MEDS ORDERED: Potassium Chloride 20 mEq ER Tab PO ONE (10:00)
--- NOTE | 2017-07-19 13:50 | CP.PCM.CON ---
Past Patient History - Past Medical History & Family History Past Medical History?: Yes - Past Social History Smoking Status: Never Smoked - CARDIAC Hx Cardiac Disorders: No - PULMONARY Hx Bronchitis: Yes Hx Pneumonia: Yes - NEUROLOGICAL Hx Neurological Disorder: No - HEENT Hx HEENT Problems: No - RENAL Hx Chronic Kidney Disease: No - ENDOCRINE/METABOLIC Hx Endocrine Disorders: No - HEMATOLOGICAL/ONCOLOGICAL Hx Human Immunodeficiency Virus (HIV): Yes (HIV postive almost 20 yrs) - INTEGUMENTARY Hx Dermatological Problems: No - MUSCULOSKELETAL/RHEUMATOLOGICAL Hx Musculoskeletal Disorders: Yes Hx Falls: No - GASTROINTESTINAL Hx Gastrointestinal Disorders: Yes Hx Clostridium Difficile: Yes Hx Diarrhea: Yes - GENITOURINARY/GYNECOLOGICAL Hx Genitourinary Disorders: No - PSYCHIATRIC Hx Anxiety: Yes Hx Substance Use: Yes (Cocaine,Heroin) - SURGICAL HISTORY Hx Surgeries: No Other/Comment: DENIES - ANESTHESIA Hx Anesthesia: No Hx Anesthesia Reactions: No Hx Malignant Hyperthermia: No Meds Allergies/Adverse Reactions: Allergies Allergy/AdvReac Type Severity Reaction Status Date / Time No Known Allergies Allergy Verified 07/17/17 11:11 - Medications Medications: Current Medications Enoxaparin Sodium (Lovenox) 40 mg SC DAILY [facility] Last Admin: 07/19/17 09:37 Dose: 40 mg Vancomycin/Sodium Chloride (Vancomycin 1 Gm/Ns 200 Ml) 1 gm in 200 mls @ 133.333 mls/hr IVPB DAILY [facility] PRN Reason: Protocol Stop: 07/23/17 10:01 Last Admin: 07/19/17 10:00 Dose: 133.333 mls/hr Piperacillin Sod/Tazobactam Sod (Zosyn 3.375 Gm Iv Premix) 3.375 gm in 50 mls @ 100 mls/hr IVPB Q8H [facility] PRN Reason: Protocol Last Admin: 07/19/17 09:28 Dose: 100 mls/hr Morphine Sulfate (Morphine) 2 mg IVP Q4 PRN PRN Reason: Pain, severe (8-10) Last Admin: 07/19/17 11:50 Dose: 2 mg Results - Vital Signs Recent Vital Signs: Last Vital Signs Temp 98.1 F 07/19/17 07:10 Pulse 88 07/19/17 07:10 Resp 20 07/19/17 07:10 BP 117/87 07/19/17 07:10 Pulse Ox 98 04/15/18 07:10 - Labs Result Diagrams: 07/19/17 08:35 07/19/17 08:35 Labs: Laboratory Results - last 24 hr 07/19/17 07/19/17 08:35 08:35 WBC 3.1 L RBC 4.17 Hgb 11.4 Hct 33.7 L MCV 80.8 L MCH 27.2 MCHC 33.7 RDW 15.9 H Plt Count 237 MPV 8.7 Sodium 138 Potassium 3.5 L Chloride 101 Carbon Dioxide 23 Anion Gap 18 BUN 13 Creatinine 0.6 L Est GFR ( Amer) > 60 Est GFR (Non-Af Amer) > 60 Random Glucose 226 H Calcium 8.4 L
--- NOTE | 2017-07-19 16:26 | CP.PCM.PN ---
Subjective - Date & Time of Evaluation Date of Evaluation: 07/19/17 Time of Evaluation: 07:20 - Subjective Subjective: clinically same Objective - Vital Signs/Intake and Output Vital Signs (last 24 hours): Temp Pulse Resp BP Pulse Ox 98.5 F 87 20 107/74 98 07/19/17 15:00 07/19/17 15:00 07/19/17 15:00 07/19/17 15:00 07/19/17 15:00 Intake and Output: 07/19/17 07/19/17 06:59 18:59 Intake Total 410 Balance 410 - Medications Medications: Current Medications Enoxaparin Sodium (Lovenox) 40 mg SC DAILY [facility] Last Admin: 07/19/17 09:37 Dose: 40 mg Vancomycin/Sodium Chloride (Vancomycin 1 Gm/Ns 200 Ml) 1 gm in 200 mls @ 133.333 mls/hr IVPB DAILY [facility] PRN Reason: Protocol Stop: 07/23/17 10:01 Last Admin: 07/19/17 10:00 Dose: 133.333 mls/hr Piperacillin Sod/Tazobactam Sod (Zosyn 3.375 Gm Iv Premix) 3.375 gm in 50 mls @ 100 mls/hr IVPB Q8H [facility] PRN Reason: Protocol Last Admin: 07/19/17 09:28 Dose: 100 mls/hr Morphine Sulfate (Morphine) 2 mg IVP Q4 PRN PRN Reason: Pain, severe (8-10) Last Admin: 07/19/17 15:56 Dose: 2 mg - Labs Labs: 07/19/17 08:35 07/19/17 08:35 - Constitutional Appears: Well - Head Exam Head Exam: ATRAUMATIC, NORMAL INSPECTION, NORMOCEPHALIC - Eye Exam Eye Exam: EOMI, Normal appearance, PERRL - ENT Exam ENT Exam: Mucous Membranes Moist, Normal Exam - Neck Exam Neck Exam: Full ROM, Normal Inspection. absent: Lymphadenopathy - Respiratory Exam Respiratory Exam: Decreased Breath Sounds - Cardiovascular Exam Cardiovascular Exam: REGULAR RHYTHM, +S1, +S2 - GI/Abdominal Exam GI & Abdominal Exam: Soft, Diminished Bowel Sounds - Rectal Exam Rectal Exam: Deferred
--- NOTE | 2017-07-19 16:33 | CP.PCM.PN ---
Subjective - Date & Time of Evaluation Date of Evaluation: 07/19/17 Time of Evaluation: 13:35 - Subjective Subjective: Podiatry Progress Note- Dr. Centeno/Dr. Rodrigues 47 yo female patient seen and evaluated for chronic superficial ulceration and cellulitis of RLE with chronic OM R foot. Patient is seen resting comfortably in bed, in NAD, and AA0x3. Reports same continue pain to the right foot at site of ulceration. Patient reports that she slept okay. Objective - Vital Signs/Intake and Output Vital Signs (last 24 hours): Temp Pulse Resp BP Pulse Ox 98.5 F 87 20 107/74 98 07/19/17 15:00 07/19/17 15:00 07/19/17 15:00 07/19/17 15:00 07/19/17 15:00 Intake and Output: 07/19/17 07/19/17 06:59 18:59 Intake Total 410 Balance 410 - Medications Medications: Current Medications Enoxaparin Sodium (Lovenox) 40 mg SC DAILY [facility] Last Admin: 07/19/17 09:37 Dose: 40 mg Vancomycin/Sodium Chloride (Vancomycin 1 Gm/Ns 200 Ml) 1 gm in 200 mls @ 133.333 mls/hr IVPB DAILY [facility] PRN Reason: Protocol Stop: 07/23/17 10:01 Last Admin: 07/19/17 10:00 Dose: 133.333 mls/hr Piperacillin Sod/Tazobactam Sod (Zosyn 3.375 Gm Iv Premix) 3.375 gm in 50 mls @ 100 mls/hr IVPB Q8H [facility] PRN Reason: Protocol Last Admin: 07/19/17 09:28 Dose: 100 mls/hr Morphine Sulfate (Morphine) 2 mg IVP Q4 PRN PRN Reason: Pain, severe (8-10) Last Admin: 07/19/17 15:56 Dose: 2 mg - Labs Labs: 07/19/17 08:35 07/19/17 08:35 - Constitutional Appears: Well, Non-toxic, No Acute Distress - Extremities Exam Extremities Exam: absent: Calf Tenderness Additional comments: RLE exam: VASC: pedal pulses are fully palpable, skin temp runs warm to warm with increased calor noted to anterior distal leg and dorsal-medial foot, moderate edema noted to dorsal-medial midfoot NEURO: gross and protective pedal sensation are intact DERM: erythema is noted from mid-foot and extends proximally to distal 1/2 of the leg-improved, there is a superficial ulceration noted to medial ankle measures 5.0x2.0x0.3cm with mixture mainly granular base, there is noemy-wound erythema, neg fluctuance, neg PTB, mild malodor, there is mild maceration noted to the anterior noemy-wound, no fluctuance MSK: tenderness to palpation of central aspect of wound and medial ankle, MMT is 5/5 all directions - Psychiatric Exam Psychiatric exam: Normal Affect, Normal Mood Assessment and Plan - Assessment and Plan (Free Text) Assessment: 47 yo female patient seen and evaluated for chronic superficial ulceration and cellulitis of RLE with chronic OM R foot. Plan: Pt S&E at bedside Plan discussed with attending Dr. Meyer (covering for ) chart, labs and vitals reviewed: afebrile, decreased wbc 3.1 ESR 67, CRP >15 R foot and tib-fib xrays reviewed: no acute findings RLE bone scan (04/03/17): + OM tarsal bones and medial ankle (completed 6 weeks IV abx) Wound culture- MRSA, Corynebacterium Species c/w IV abx, IV abx as per ID wound cleansed with saline, dressed xeroform, DSD sx shoe ordered, wbat will follow
--- NOTE | 2017-07-19 18:20 | CP.PCM.CON ---
History of Present Illness - History of Present Illness History of Present Illness: Patient with a PMHx of HIV and IVDA, reports recent oncet infection right foot multiple skin iunfections in past t cells unknown off hiv meds + hx MRSA in past COPD - Medical History PMH: Anxiety, Bronchitis, HIV (HIV postive almost 20 yrs), Pneumonia Denies: Chronic Kidney Disease - [facility] Procedures DRAINAGE OF RIGHT LOWER ARM SKIN, EXTERNAL APPROACH (03/01/15) DX ULTRASOUND NEC (06/14/14) MEDS MGMT FOR SUBSTANCE ABUSE TREATMENT, METHADONE MAINT (03/01/15) OTHER SKIN & SUBQ I D (06/14/14) Review of Systems - Review of Systems All systems: reviewed and no additional remarkable complaints except - Constitutional Constitutional: As Per HPI - EENT Eyes: absent: As Per HPI, Blind Spots, Blurred Vision, Change in Vision, Decreased Night Vision, Diplopia, Discharge, Dry Eye, Exophthalmos, Floaters, Irritation, Itchy Eyes, Loss of Peripheral Vision, Pain, Photophobia, Requires Corrective Lenses, Sees Flashes, Spots in Vision, Tunnel Vision, Other Visual Disturbances, Loss of Vision, Other Ears: absent: As Per HPI, Decreased Hearing, Ear Discharge, Ear Pain, Tinnitus, Abnormal Hearing, Disequilibrium, Dizziness, Other Nose/Mouth/Throat: absent: As Per HPI, Epistaxis, Nasal Congestion, Nasal Discharge, Nasal Obstruction, Nasal Trauma, Nose Pain, Post Nasal Drip, Sinus Pain, Sinus Pressure, Bleeding Gums, Change in Voice, Dental Pain, Dry Mouth, Dysphagia, Halitosis, Hoarsness, Lip Swelling, Mouth Lesions, Mouth Pain, Odynophagia, Sore Throat, Throat Swelling, Tongue Swelling, Facial Pain, Neck Pain, Neck Mass, Other - Breasts Breasts: absent: As Per HPI, Change in Shape, Mass, Pain, Nipple Discharge, Nipple Inversion, Skin Changes, Swelling, Other - Cardiovascular Cardiovascular: absent: As Per HPI, Acrocyanosis, Chest Pain, Chest Pain at Rest , Chest Pain with Activity, Claudication, Diaphoresis, Dyspnea, Dyspnea on Exertion, Edema, Irregular Heart Rhythm, Pain Radiating to Arm/Neck/Jaw, Leg Edema, Leg Ulcers, Lightheadedness, Orthopnea, Palpitations, Paroxysmal Nocturnal Dyspnea, Pedal Edema, Radiating Pain, Rapid Heart Rate, Slow Heart Rate, Syncope, Other - Respiratory Respiratory: absent: As Per HPI, Cough, Dyspnea, Hemoptysis, Dyspnea on Exertion , Wheezing, Snoring, Stridor, Pain on Inspiration, Chest Congestion, Excessive Mucous Production, Change in Mucous Color, Pain with Coughing, Other - Gastrointestinal Gastrointestinal: absent: As Per HPI, Abdominal Pain, Belching, Bloating, Change in Bowel Habits, Change in Stool Character, Coffee Ground Emesis, Constipation, Cramping, Diarrhea, Dyspepsia, Dysphagia, Early Satiety, Excessive Flatus, Fecal Incontinence, Heartburn, Hematemesis, Hematochezia, Loose Stools, Melena, Nausea, Odynophagia, Temesmus, Vomiting, Other - Genitourinary Genitourinary: absent: As Per HPI, Change in Urinary Stream, Difficulty Urinating, Dysuria, Flank Pain, Hematuria, Pyuria, Nocturia, Urinary Incontinence, Urinary Frequency, Urinary Hesitance, Urinary Urgency, Voiding Freq/Small Amts, Freq UTI, Hx Renal/Bladder Calculi, Hx /Renal Surgery, Bladder Distension, Other - Reproductive: Female Reproductive:Female: absent: As Per HPI, Amenorrhea, Amenorrhea/ Control, Currently Menstual, Cycle <21 Days, Cycle >35 Days, Cycle Variable, Menses 1-7 Days, Menses >/= 8 Days, Menses Variable, Cycle > 4 Weeks Between, No Menses for 6 Months, Heavy Menses, Light Menses, Normal Menses, Spotting Between Cycles , S/P Hysterectomy, Menopausal, Post Menopausal, Premenarche, Abnormal Vaginal Bleeding, Dysmenorrhea, Dyspareunia, Genital Lesions, Genital Pruritis, Pelvic Pain, Prolapse Symptoms, Sexual Dysfunction, Vaginal Discharge, Vaginal Dryness , Vaginal Odor, Vaginal Pruritis, Other - Menstruation Menstruation: absent: As Per HPI, Amenorrhea, Amenorrhea/ Control, Currently Menstual, Cycle <21 Days, Cycle >35 Days, Cycle Variable, Menses 1-7 Days, Menses >/= 8 Days, Menses Variable, Cycle > 4 Weeks Between, No Menses for 6 Months, Heavy Menses, Light Menses, Normal Menses, Spotting Between Cycles , S/P Hysterectomy, Menopausal, Post Menopausal, Premenarche, Abnormal Vaginal Bleeding, Dysmenorrhea, Other - Musculoskeletal Musculoskeletal: As Per HPI - Integumentary Integumentary: absent: As Per HPI, Acne, Alopecia, Bleeding Lesions, Change in Hair, Change in Nails, Change in Pigmentation, Changing Lesions, Dry Skin, Erythema, Furuncle, Hirsutism, Lesions, New Lesions, Non-Healing Lesions, Photosensitivity, Pruritus, Rash, Skin Pain, Skin Ulcer, Sores, Striae, Swelling , Unusual Bruising, Wounds, Jaundice, Other - Neurological Neurological: As Per HPI - Psychiatric Psychiatric: absent: As Per HPI, Abnormal Sleep Pattern, Anhedonia, Anxiety, Auditory Hallucinations, Behavioral Changes, Change in Appetite, Change in Libido, Confusion, Depression, Difficulty Concentrating, Hallucinations, Homicidal Ideation, Hopelessness, Irritability, Memory Loss, Mood Swings, Panic Attacks, Paranoia, Suicidal Ideation, Visual Hallucinations, Tactile Hallucinations, Other Past Patient History - Past Medical History & Family History Past Medical History?: Yes - Past Social History Smoking Status: Never Smoked - CARDIAC Hx Cardiac Disorders: No - PULMONARY Hx Bronchitis: Yes Hx Pneumonia: Yes - NEUROLOGICAL Hx Neurological Disorder: No - HEENT Hx HEENT Problems: No - RENAL Hx Chronic Kidney Disease: No - ENDOCRINE/METABOLIC Hx Endocrine Disorders: No - HEMATOLOGICAL/ONCOLOGICAL Hx Human Immunodeficiency Virus (HIV): Yes (HIV postive almost 20 yrs) - INTEGUMENTARY Hx Dermatological Problems: No - MUSCULOSKELETAL/RHEUMATOLOGICAL Hx Musculoskeletal Disorders: Yes Hx Falls: No - GASTROINTESTINAL Hx Gastrointestinal Disorders: Yes Hx Clostridium Difficile: Yes Hx Diarrhea: Yes - GENITOURINARY/GYNECOLOGICAL Hx Genitourinary Disorders: No - PSYCHIATRIC Hx Anxiety: Yes Hx Substance Use: Yes (Cocaine,Heroin) - SURGICAL HISTORY Hx Surgeries: No Other/Comment: DENIES - ANESTHESIA Hx Anesthesia: No Hx Anesthesia Reactions: No Hx Malignant Hyperthermia: No Meds Allergies/Adverse Reactions: Allergies Allergy/AdvReac Type Severity Reaction Status Date / Time No Known Allergies Allergy Verified 07/17/17 11:11 - Medications Medications: Current Medications Enoxaparin Sodium (Lovenox) 40 mg SC DAILY [facility] Last Admin: 07/19/17 09:37 Dose: 40 mg Vancomycin/Sodium Chloride (Vancomycin 1 Gm/Ns 200 Ml) 1 gm in 200 mls @ 133.333 mls/hr IVPB DAILY [facility] PRN Reason: Protocol Stop: 07/23/17 10:01 Last Admin: 07/19/17 10:00 Dose: 133.333 mls/hr Piperacillin Sod/Tazobactam Sod (Zosyn 3.375 Gm Iv Premix) 3.375 gm in 50 mls @ 100 mls/hr IVPB Q8H [facility] PRN Reason: Protocol Last Admin: 07/19/17 17:25 Dose: 100 mls/hr Morphine Sulfate (Morphine) 2 mg IVP Q4 PRN PRN Reason: Pain, severe (8-10) Last Admin: 07/19/17 15:56 Dose: 2 mg Physical Exam - Constitutional Appears: Cachectic, Chronically Ill - Head Exam Head Exam: ATRAUMATIC, NORMOCEPHALIC - Eye Exam Eye Exam: PERRL. absent: Scleral icterus - ENT Exam ENT Exam: Mucous Membranes Dry - Neck Exam Neck exam: Negative for: Lymphadenopathy - Respiratory Exam Respiratory Exam: Decreased Breath Sounds - Cardiovascular Exam Cardiovascular Exam: REGULAR RHYTHM - GI/Abdominal Exam GI & Abdominal Exam: Diminished Bowel Sounds - Rectal Exam Rectal Exam: Deferred - Exam Exam: NORMAL INSPECTION - Extremities Exam Extremities exam: Positive for: pedal edema, tenderness, pedal pulses present. Negative for: calf tenderness Additional comments: infected right foot / RLE exam: VASC: pedal pulses are fully palpable, skin temp runs warm to warm with increased calor noted to anterior distal leg and dorsal-medial foot, moderate edema noted to dorsal-medial midfoot NEURO: gross and protective pedal sensation are intact DERM: erythema is noted from mid-foot and extends proximally to distal 1/2 of the leg-improved, there is a superficial ulceration noted to medial ankle measures 5.0x2.0x0.3cm with mixture mainly granular base, there is noemy-wound erythema, neg fluctuance, neg PTB, mild malodor, there is mild maceration noted to the anterior noemy-wound, no fluctuance MSK: tenderness to palpation of central aspect of wound and medial ankle, MMT is 5/5 all directions - Back Exam Back exam: absent: CVA tenderness (L), CVA tenderness (R) - Neurological Exam Neurological exam: Alert, CN II-XII Intact, Oriented x3, Reflexes Normal - Psychiatric Exam Psychiatric exam: Normal Mood - Skin Skin Exam: Dry, Erythema Results - Vital Signs Recent Vital Signs: Last Vital Signs Temp 98.5 F 07/19/17 15:00 Pulse 87 07/19/17 15:00 Resp 20 07/19/17 15:00 BP 107/74 07/19/17 15:00 Pulse Ox 98 07/19/17 15:00 - Labs Result Diagrams: 07/19/17 08:35 07/19/17 08:35 Labs: Laboratory Results - last 24 hr 07/19/17 07/19/17 08:35 08:35 WBC 3.1 L RBC 4.17 Hgb 11.4 Hct 33.7 L MCV 80.8 L MCH 27.2 MCHC 33.7 RDW 15.9 H Plt Count 237 MPV 8.7 Sodium 138 Potassium 3.5 L Chloride 101 Carbon Dioxide 23 Anion Gap 18 BUN 13 Creatinine 0.6 L Est GFR ( Amer) > 60 Est GFR (Non-Af Amer) > 60 Random Glucose 226 H Calcium 8.4 L Assessment & Plan (1) Cellulitis of leg Status: Acute (2) IVDU (intravenous drug user) Status: Acute (3) Leg ulcer Status: Acute (4) HIV (human immunodeficiency virus infection) Status: Chronic - Assessment and Plan (Free Text) Assessment: 47 yo female patient seen and evaluated for chronic superficial ulceration and cellulitis of RLE with chronic OM R foot. ESR 67, CRP >15 R foot and tib-fib xrays reviewed: no acute findings RLE bone scan (04/03/17): + OM tarsal bones and medial ankle (completed 6 weeks IV abx) Wound culture- MRSA, Corynebacterium Species recc: MRI and or Bone scan right foot coint iv rx may need 6-8 weeks rx re-eval for HAART rx with [facility] check T cells
[2017-07-19] MEDS: Tmp-Smz 800 mg-160 mg DS Tab PO SCH (18:48)
[2017-07-20] MEDS: Morphine 4 MG/ML VIAL IVP PRN ×6 (00:08→21:19)
[2017-07-20] MEDS: Piperacill/Tazo 3.375gm in Dex 3.375 GM/50 ML BAG IVPB SCH ×3 (02:08→17:56)
[2017-07-20] MEDS: Enoxaparin 40 mg Syringe SC SCH (10:04)
[2017-07-20] MEDS: Vancomycin 1 gm/NS 200 ml 1 GM/200 ML BAG IVPB SCH (11:26)
--- NOTE | 2017-07-20 12:35 | CP.PCM.PN ---
Subjective - Date & Time of Evaluation Date of Evaluation: 07/20/17 Time of Evaluation: 09:00 - Subjective Subjective: wound same iv rx reordered recc: MRI and or ceretec Objective - Vital Signs/Intake and Output Vital Signs (last 24 hours): Temp Pulse Resp BP Pulse Ox 97.7 F 98 H 18 100/71 94 L 07/20/17 11:59 07/20/17 11:59 07/20/17 11:59 07/20/17 11:59 07/20/17 11:59 Intake and Output: 07/20/17 07/20/17 06:59 18:59 Intake Total 290 Balance 290 - Medications Medications: Current Medications Enoxaparin Sodium (Lovenox) 40 mg SC DAILY [facility] Last Admin: 07/20/17 10:04 Dose: 40 mg Vancomycin/Sodium Chloride (Vancomycin 1 Gm/Ns 200 Ml) 1 gm in 200 mls @ 133.333 mls/hr IVPB DAILY [facility] PRN Reason: Protocol Stop: 07/23/17 10:01 Last Admin: 07/20/17 11:26 Dose: 133.333 mls/hr Piperacillin Sod/Tazobactam Sod (Zosyn 3.375 Gm Iv Premix) 3.375 gm in 50 mls @ 100 mls/hr IVPB Q8H [facility] PRN Reason: Protocol Last Admin: 07/20/17 10:04 Dose: 100 mls/hr Morphine Sulfate (Morphine) 2 mg IVP Q4 PRN PRN Reason: Pain, severe (8-10) Last Admin: 07/20/17 08:29 Dose: 2 mg Mupirocin (Bactroban Ointment) 1 gm TOP DAILY PRN PRN Reason: Other Trimethoprim/Sulfamethoxazole (Bactrim Ds Tab) 1 tab PO Q24H [facility]ADD PRN Reason: Protocol Last Admin: 07/19/17 18:48 Dose: 1 tab - Labs Labs: 07/19/17 08:35 07/19/17 08:35 - Constitutional Appears: Non-toxic, Chronically Ill - Head Exam Head Exam: NORMOCEPHALIC - Eye Exam Eye Exam: absent: Scleral icterus - ENT Exam ENT Exam: Mucous Membranes Dry - Neck Exam Neck Exam: absent: Lymphadenopathy - Respiratory Exam Respiratory Exam: Prolonged Expiratory Phase - Cardiovascular Exam Cardiovascular Exam: REGULAR RHYTHM, +S1, +S2 - GI/Abdominal Exam GI & Abdominal Exam: Distended, Soft - Rectal Exam Rectal Exam: Deferred Assessment and Plan (1) Cellulitis of leg Status: Acute (2) IVDU (intravenous drug user) Status: Acute (3) Leg ulcer Status: Acute (4) HIV (human immunodeficiency virus infection) Status: Chronic
[2017-07-20] MEDS: Tmp-Smz 800 mg-160 mg DS Tab PO SCH (17:57)
--- NOTE | 2017-07-20 18:35 | CP.PCM.PN ---
Subjective - Date & Time of Evaluation Date of Evaluation: 07/20/17 Time of Evaluation: 07:50 - Subjective Subjective: clinically same Objective - Vital Signs/Intake and Output Vital Signs (last 24 hours): Temp Pulse Resp BP Pulse Ox 98.4 F 97 H 18 107/78 97 07/20/17 15:00 07/20/17 15:00 07/20/17 15:00 07/20/17 15:00 07/20/17 15:00 Intake and Output: 07/20/17 07/20/17 06:59 18:59 Intake Total 290 Balance 290 - Medications Medications: Current Medications Enoxaparin Sodium (Lovenox) 40 mg SC DAILY [facility] Last Admin: 07/20/17 10:04 Dose: 40 mg Vancomycin/Sodium Chloride (Vancomycin 1 Gm/Ns 200 Ml) 1 gm in 200 mls @ 133.333 mls/hr IVPB DAILY [facility] PRN Reason: Protocol Stop: 07/23/17 10:01 Last Admin: 07/20/17 11:26 Dose: 133.333 mls/hr Piperacillin Sod/Tazobactam Sod (Zosyn 3.375 Gm Iv Premix) 3.375 gm in 50 mls @ 100 mls/hr IVPB Q8H [facility]ADD PRN Reason: Protocol Last Admin: 07/20/17 17:56 Dose: 100 mls/hr Morphine Sulfate (Morphine) 2 mg IVP Q4 PRN PRN Reason: Pain, severe (8-10) Last Admin: 07/20/17 17:14 Dose: 2 mg Mupirocin (Bactroban Ointment) 1 gm TOP DAILY PRN PRN Reason: Other Trimethoprim/Sulfamethoxazole (Bactrim Ds Tab) 1 tab PO Q24H [facility]ADD PRN Reason: Protocol Last Admin: 07/20/17 17:57 Dose: 1 tab - Labs Labs: 07/19/17 08:35 07/19/17 08:35 Assessment and Plan (1) Sepsis Status: Acute
[2017-07-20] MEDS ORDERED: Potassium Chloride 20 mEq ER Tab PO STA (20:05)
[2017-07-21] MEDS: Piperacill/Tazo 3.375gm in Dex 3.375 GM/50 ML BAG IVPB SCH ×3 (01:17→17:32)
[2017-07-21] MEDS: Morphine 4 MG/ML VIAL IVP PRN ×6 (01:17→21:34)
[2017-07-21 08:07] LABS: BASO % 0.2 % (0.0-2.0); HEMOGLOBIN 11.4 g/dL (11.0-16.0); LYMPH # 0.5 K/uL (1.0-4.3); LYMPH % 8.3 % (20.0-40.0); MEAN CELL VOLUME 80.1 fL (81.0-99.0); MEAN CORPUSCULAR HEMOGLOBIN 26.9 pg (27.0-31.0); MEAN CORPUSCULAR HGB CONC 33.6 g/dL (33.0-37.0); MEAN PLATELET VOLUME 8.3 fL (7.2-11.7); MONO # 0.3 K/uL (0.0-0.8); MONO % 5.6 % (0.0-10.0); NEUT # 5.3 K/uL (1.8-7.0); NEUT % 85.9 % (50.0-75.0); NRBC % 0.1 % (0.0-2.0); PLATELET COUNT 251 K/uL (130-400); RBC 4.23 Mil/uL (3.80-5.20); RED CELL DISTRIBUTION WIDTH 16.1 % (11.5-14.5); WHITE BLOOD COUNT 6.2 K/uL (4.8-10.8)
[2017-07-21 08:24] LABS: BLOOD UREA NITROGEN 16 mg/dL (7-17); CALCIUM 8.9 mg/dl (8.6-10.4); GFR AFRICAN-AMERICAN > 60; GFR NON-AFRICAN AMERICAN > 60
[2017-07-21] MEDS: Enoxaparin 40 mg Syringe SC SCH (09:20)
[2017-07-21] MEDS: Vancomycin 1 gm/NS 200 ml 1 GM/200 ML BAG IVPB SCH (09:21)
--- NOTE | 2017-07-21 11:06 | CP.PCM.PN ---
Subjective - Date & Time of Evaluation Date of Evaluation: 07/21/17 Time of Evaluation: 09:00 - Subjective Subjective: iv rx in progress c/o pain await mri Objective - Vital Signs/Intake and Output Vital Signs (last 24 hours): Temp Pulse Resp BP Pulse Ox 99.0 F 119 H 18 106/77 98 07/21/17 07:00 07/21/17 07:00 07/21/17 07:00 07/21/17 07:00 07/21/17 07:00 Intake and Output: 07/21/17 07/21/17 06:59 18:59 Intake Total 650 Balance 650 - Medications Medications: Current Medications Enoxaparin Sodium (Lovenox) 40 mg SC DAILY [facility] Last Admin: 07/21/17 09:20 Dose: 40 mg Vancomycin/Sodium Chloride (Vancomycin 1 Gm/Ns 200 Ml) 1 gm in 200 mls @ 133.333 mls/hr IVPB DAILY [facility] PRN Reason: Protocol Stop: 07/23/17 10:01 Last Admin: 07/21/17 09:21 Dose: 133.333 mls/hr Piperacillin Sod/Tazobactam Sod (Zosyn 3.375 Gm Iv Premix) 3.375 gm in 50 mls @ 100 mls/hr IVPB Q8H [facility] PRN Reason: Protocol Last Admin: 07/21/17 09:20 Dose: 100 mls/hr Morphine Sulfate (Morphine) 2 mg IVP Q4 PRN PRN Reason: Pain, severe (8-10) Last Admin: 07/21/17 09:21 Dose: 2 mg Mupirocin (Bactroban Ointment) 1 gm TOP DAILY PRN PRN Reason: Other Trimethoprim/Sulfamethoxazole (Bactrim Ds Tab) 1 tab PO Q24H [facility]ADD PRN Reason: Protocol Last Admin: 07/20/17 17:57 Dose: 1 tab - Labs Labs: 07/21/17 07:53 07/21/17 07:53 - Constitutional Appears: Non-toxic, Chronically Ill - Head Exam Head Exam: NORMOCEPHALIC - Eye Exam Eye Exam: PERRL - ENT Exam ENT Exam: Mucous Membranes Dry. absent: Normal Oropharynx - Neck Exam Neck Exam: Lymphadenopathy - Respiratory Exam Respiratory Exam: Decreased Breath Sounds - Cardiovascular Exam Cardiovascular Exam: REGULAR RHYTHM - GI/Abdominal Exam GI & Abdominal Exam: Distended, Soft Assessment and Plan (1) Cellulitis of leg Status: Acute (2) IVDU (intravenous drug user) Status: Acute (3) Leg ulcer Status: Acute (4) HIV (human immunodeficiency virus infection) Status: Chronic
[2017-07-21 11:16] LABS: LYMPHOCYTE 2 % (20-40); MONOCYTE 1 % (0-10); NEUTROPHIL 97 % (50-75); TOTAL CELLS COUNTED 100
[2017-07-21 11:36] LABS: PLATELET ESTIMATE NORMAL (NORMAL)
[2017-07-21 11:37] LABS: ANISOCYTOSIS SLIGHT
[2017-07-21 11:38] LABS: HYPOCHROMIC SLIGHT; POLYCHROMIC SLIGHT
--- NOTE | 2017-07-21 15:10 | CP.PCM.PN ---
Subjective - Date & Time of Evaluation Date of Evaluation: 07/21/17 Time of Evaluation: 10:50 - Subjective Subjective: Podiatry Progress Note- Dr. Rodrigues 47 yo female patient seen and evaluated for chronic superficial ulceration and cellulitis of RLE with chronic OM R foot. Patient is seen resting comfortably in bed, in NAD, and AA0x3. Reports same continue pain to the right foot at site of ulceration, well controlled at rest with breakthrough pain on direct contact. Patient reports that she slept okay. Objective - Vital Signs/Intake and Output Vital Signs (last 24 hours): Temp Pulse Resp BP Pulse Ox 99.0 F 119 H 18 106/77 98 07/21/17 07:00 07/21/17 07:00 07/21/17 07:00 07/21/17 07:00 07/21/17 07:00 Intake and Output: 07/21/17 07/21/17 06:59 18:59 Intake Total 650 650 Balance 650 650 - Medications Medications: Current Medications Enoxaparin Sodium (Lovenox) 40 mg SC DAILY [facility] Last Admin: 07/21/17 09:20 Dose: 40 mg Vancomycin/Sodium Chloride (Vancomycin 1 Gm/Ns 200 Ml) 1 gm in 200 mls @ 133.333 mls/hr IVPB DAILY [facility] PRN Reason: Protocol Stop: 07/23/17 10:01 Last Admin: 07/21/17 09:21 Dose: 133.333 mls/hr Piperacillin Sod/Tazobactam Sod (Zosyn 3.375 Gm Iv Premix) 3.375 gm in 50 mls @ 100 mls/hr IVPB Q8H [facility] PRN Reason: Protocol Last Admin: 07/21/17 09:20 Dose: 100 mls/hr Morphine Sulfate (Morphine) 2 mg IVP Q4 PRN PRN Reason: Pain, severe (8-10) Last Admin: 07/21/17 13:25 Dose: 2 mg Mupirocin (Bactroban Ointment) 1 gm TOP DAILY PRN PRN Reason: Other Trimethoprim/Sulfamethoxazole (Bactrim Ds Tab) 1 tab PO Q24H [facility] PRN Reason: Protocol Last Admin: 07/20/17 17:57 Dose: 1 tab - Labs Labs: 07/21/17 07:53 07/21/17 07:53 - Constitutional Appears: Well, Non-toxic, No Acute Distress - Extremities Exam Additional comments: VASC: pedal pulses are fully palpable, skin temp runs warm to warm with increased calor noted to anterior distal leg and dorsal-medial foot, minor non- pitting edema noted to dorsal-medial midfoot NEURO: gross and protective pedal sensation are intact DERM: Superficial ulceration noted to medial ankle measures 4.0x1.8.x with mixture fibro-granular base, there is noemy-wound non-streaking erythema localized to wound margins. neg fluctuance, mild malodor. No noemy-wound maceration noted t MSK: tenderness to palpation of central aspect of wound and medial ankle, MMT is 5/5 all directions - Neurological Exam Neurological Exam: Alert, Awake, Oriented x3 - Psychiatric Exam Psychiatric exam: Normal Affect, Normal Mood Assessment and Plan - Assessment and Plan (Free Text) Assessment: 47 y/o female patient with right lower extremity 1) chronic superficial ulceration and cellulitis; resolving 2) chronic tarsal bone osteomyelits. Plan: Pt S&E at bedside. Plan discussed with attending Dr. Rodrigues, who endorsed and agreed. chart, labs and vitals reviewed: afebrile, increased wbc= 6.2. ESR 67, CRP >15 RLE bone scan (04/03/17): + OM tarsal bones and medial ankle (completed 6 weeks IV abx) Rigth foot/ankle MRI ordered- results pending Wound culture- MRSA, Corynebacterium Species c/w IV abx, as per ID wound cleansed with saline, dressed with bactroban, xeroform, DSD sx shoe ordered, wbat podiatry will continue to follow
--- NOTE | 2017-07-21 17:06 | CP.PCM.PN ---
Subjective - Date & Time of Evaluation Date of Evaluation: 07/21/17 Time of Evaluation: 08:10 - Subjective Subjective: clinically same Objective - Vital Signs/Intake and Output Vital Signs (last 24 hours): Temp Pulse Resp BP Pulse Ox 98.6 F 102 H 18 106/74 100 07/21/17 15:00 07/21/17 15:00 07/21/17 15:00 07/21/17 15:00 07/21/17 15:00 Intake and Output: 07/21/17 07/21/17 06:59 18:59 Intake Total 650 650 Balance 650 650 - Medications Medications: Current Medications Enoxaparin Sodium (Lovenox) 40 mg SC DAILY [facility] Last Admin: 07/21/17 09:20 Dose: 40 mg Vancomycin/Sodium Chloride (Vancomycin 1 Gm/Ns 200 Ml) 1 gm in 200 mls @ 133.333 mls/hr IVPB DAILY [facility] PRN Reason: Protocol Stop: 07/23/17 10:01 Last Admin: 07/21/17 09:21 Dose: 133.333 mls/hr Piperacillin Sod/Tazobactam Sod (Zosyn 3.375 Gm Iv Premix) 3.375 gm in 50 mls @ 100 mls/hr IVPB Q8H [facility] PRN Reason: Protocol Last Admin: 07/21/17 09:20 Dose: 100 mls/hr Morphine Sulfate (Morphine) 2 mg IVP Q4 PRN PRN Reason: Pain, severe (8-10) Last Admin: 07/21/17 13:25 Dose: 2 mg Mupirocin (Bactroban Ointment) 1 gm TOP DAILY PRN PRN Reason: Other Trimethoprim/Sulfamethoxazole (Bactrim Ds Tab) 1 tab PO Q24H [facility] PRN Reason: Protocol Last Admin: 07/20/17 17:57 Dose: 1 tab - Labs Labs: 07/21/17 07:53 07/21/17 07:53 - Constitutional Appears: Well - Head Exam Head Exam: ATRAUMATIC, NORMAL INSPECTION, NORMOCEPHALIC - Eye Exam Eye Exam: EOMI, Normal appearance, PERRL Pupil Exam: NORMAL ACCOMODATION, PERRL - ENT Exam ENT Exam: Mucous Membranes Moist, Normal Exam - Neck Exam Neck Exam: Full ROM, Normal Inspection. absent: Lymphadenopathy - Respiratory Exam Respiratory Exam: Decreased Breath Sounds - Cardiovascular Exam Cardiovascular Exam: REGULAR RHYTHM, +S1, +S2 - GI/Abdominal Exam GI & Abdominal Exam: Soft, Diminished Bowel Sounds - Rectal Exam Rectal Exam: Deferred Assessment and Plan (1) Sepsis Status: Acute
[2017-07-21] MEDS: Tmp-Smz 800 mg-160 mg DS Tab PO SCH (17:32)
[2017-07-22] MEDS: Piperacill/Tazo 3.375gm in Dex 3.375 GM/50 ML BAG IVPB SCH (01:37)
[2017-07-22] MEDS: Morphine 4 MG/ML VIAL IVP PRN ×6 (01:38→22:30)
[2017-07-22] MEDS: Vancomycin 1 gm/NS 200 ml 1 GM/200 ML BAG IVPB SCH ×2 (10:17→21:10)
[2017-07-22] MEDS: Enoxaparin 40 mg Syringe SC SCH (10:18)
[2017-07-22] MEDS: Saccharomyces Boulardi 250 mg Cap PO SCH ×2 (10:47→17:13)
--- NOTE | 2017-07-22 10:54 | CP.PCM.PN ---
Subjective - Date & Time of Evaluation Date of Evaluation: 07/22/17 Time of Evaluation: 09:05 - Subjective Subjective: Podiatry Progress Note- Dr. Rodrigues 47 yo female patient seen and evaluated with attending Dr. Rodrigues, for chronic superficial ulceration and cellulitis of RLE with chronic OM R foot. Patient is seen resting comfortably in bed, in NAD, and AA0x3. Reports same continue pain to the right foot at site of ulceration, well controlled at rest with breakthrough pain on direct contact. Pt reports she was moving too much for scheduled MRI, so test was cancelled. Pt experiencing diahreha and had overnight felling of fever. No other acute overnight events. Objective - Vital Signs/Intake and Output Vital Signs (last 24 hours): Temp Pulse Resp BP Pulse Ox 98.6 F 113 H 18 108/74 97 07/22/17 08:35 07/22/17 07:20 07/22/17 07:20 07/22/17 07:20 07/22/17 07:20 Intake and Output: 07/22/17 07/22/17 06:59 18:59 Intake Total 850 Balance 850 - Medications Medications: Current Medications Acetaminophen (Tylenol 325mg Tab) 650 mg PO Q6 PRN PRN Reason: Fever >100.4 F Last Admin: 07/22/17 07:35 Dose: 650 mg Enoxaparin Sodium (Lovenox) 40 mg SC DAILY [facility] Last Admin: 07/22/17 10:18 Dose: 40 mg Vancomycin/Sodium Chloride (Vancomycin 1 Gm/Ns 200 Ml) 1 gm in 200 mls @ 133.333 mls/hr IVPB DAILY [facility] PRN Reason: Protocol Stop: 07/23/17 10:01 Last Admin: 07/22/17 10:17 Dose: 133.333 mls/hr Meropenem 500 mg/ Sodium (Chloride) 100 mls @ 100 mls/hr IVPB Q6 [facility] PRN Reason: Protocol Morphine Sulfate (Morphine) 2 mg IVP Q4 PRN PRN Reason: Pain, severe (8-10) Last Admin: 07/22/17 10:11 Dose: 2 mg Mupirocin (Bactroban Ointment) 1 gm TOP DAILY PRN PRN Reason: Other Saccharomyces Boulardii (Florastor) 250 mg PO BID [facility] Last Admin: 04/18/18 10:47 Dose: 250 mg - Labs Labs: 07/21/17 07:53 07/21/17 07:53 - Constitutional Appears: Non-toxic, No Acute Distress - Extremities Exam Additional comments: VASC: pedal pulses are fully palpable, skin temp runs warm to warm with increased calor noted to anterior distal leg and dorsal-medial foot, minor non- pitting edema noted to dorsal-medial midfoot NEURO: gross and protective pedal sensation are intact DERM: Superficial ulceration noted to medial ankle measures 4.0x1.8.x with mixture fibro-granular base, there is noemy-wound non-streaking erythema localized to wound margins. neg fluctuance, mild malodor. No noemy-wound maceration noted t MSK: tenderness to palpation of central aspect of wound and medial ankle, MMT is 5/5 all directions - Neurological Exam Neurological Exam: Alert, Awake, Oriented x3 - Psychiatric Exam Psychiatric exam: Normal Affect, Normal Mood Assessment and Plan - Assessment and Plan (Free Text) Assessment: 47 y/o female patient with right lower extremity 1) chronic superficial ulceration and cellulitis; resolving 2) chronic tarsal bone osteomyelits. Plan: Pt S&E at bedside with attending, Dr. Rodrigues, who endorsed and agreed. Chart, labs and vitals reviewed: 24 hour T-nui=151.9, curently afebrile. WBC ()= 6.2. ESR 67, CRP >15 RLE bone scan (04/03/17): + OM tarsal bones and medial ankle (completed 6 weeks IV abx) Rigth foot[facility], as per ID wound cleansed with saline, dressed with bactroban, xeroform, DSD Weightbearing as tolerated in surgical shoe. Podiatry will continue to follow
--- NOTE | 2017-07-22 11:15 | RAD ---
HISTORY: fever COMPARISON: Chest radiograph dated 07/17/2017. FINDINGS: LUNGS: No active pulmonary disease. PLEURA: No significant pleural effusion identified, no pneumothorax apparent. CARDIOVASCULAR: Atherosclerotic aortic calcifications. Cardiomediastinal silhouette within normal limits. OSSEOUS STRUCTURES: No significant abnormalities. VISUALIZED UPPER ABDOMEN: Normal. OTHER FINDINGS: None. IMPRESSION: No active disease.
[2017-07-22 11:53] LABS: % CD4 (T HELPER CELL) 26 Percent (30-61); % CD8 (SUPPRESSOR T CELL) 46 Percent (12-42); ABSOLUTE CD4 CELLS 169 Cells/mcL (490-1740); ABSOLUTE CD8 CELLS 303 Cells/mcL (180-1170); ABSOLUTE LYMPHOCYTES 652 Cells/mcL (850-3900); HELPER/SUPPRESSOR RATIO 0.56 Ratio (0.86-5.00)
[2017-07-22] MEDS ORDERED: Meropenem 500 MG in Sodium Chloride 0.9% 100 ML IVPB SCH (12:00)
[2017-07-22] MEDS: Meropenem 500 MG in Sodium Chloride 0.9% 100 ML IVPB SCH ×2 (12:23→17:13)
--- NOTE | 2017-07-22 15:57 | CP.PCM.PN ---
Subjective - Date & Time of Evaluation Date of Evaluation: 07/22/17 Time of Evaluation: 08:15 - Subjective Subjective: clinically same Objective - Vital Signs/Intake and Output Vital Signs (last 24 hours): Temp Pulse Resp BP Pulse Ox 99.4 F 95 H 20 98/65 L 100 07/22/17 15:27 07/22/17 15:27 07/22/17 15:27 07/22/17 15:27 07/22/17 15:27 Intake and Output: 07/22/17 07/22/17 06:59 18:59 Intake Total 850 Balance 850 - Medications Medications: Current Medications Acetaminophen (Tylenol 325mg Tab) 650 mg PO Q6 PRN PRN Reason: Fever >100.4 F Last Admin: 07/22/17 07:35 Dose: 650 mg Enoxaparin Sodium (Lovenox) 40 mg SC DAILY [facility] Last Admin: 07/22/17 10:18 Dose: 40 mg Vancomycin/Sodium Chloride (Vancomycin 1 Gm/Ns 200 Ml) 1 gm in 200 mls @ 133.333 mls/hr IVPB DAILY [facility] PRN Reason: Protocol Stop: 07/23/17 10:01 Last Admin: 07/22/17 10:17 Dose: 133.333 mls/hr Meropenem 500 mg/ Sodium (Chloride) 100 mls @ 100 mls/hr IVPB Q6 [facility] PRN Reason: Protocol Last Admin: 07/22/17 12:23 Dose: 100 mls/hr Loperamide HCl (Imodium) 2 mg PO QID PRN PRN Reason: Diarrhea Morphine Sulfate (Morphine) 2 mg IVP Q4 PRN PRN Reason: Pain, severe (8-10) Last Admin: 07/22/17 14:15 Dose: 2 mg Mupirocin (Bactroban Ointment) 1 gm TOP DAILY PRN PRN Reason: Other Saccharomyces Boulardii (Florastor) 250 mg PO BID [facility] Last Admin: 07/22/17 10:47 Dose: 250 mg - Labs Labs: 07/21/17 07:53 07/21/17 07:53 - Constitutional Appears: Well - Head Exam Head Exam: ATRAUMATIC, NORMAL INSPECTION, NORMOCEPHALIC - Eye Exam Eye Exam: EOMI, Normal appearance, PERRL Pupil Exam: NORMAL ACCOMODATION, PERRL - ENT Exam ENT Exam: Mucous Membranes Moist, Normal Exam - Neck Exam Neck Exam: Full ROM, Normal Inspection. absent: Lymphadenopathy - Respiratory Exam Respiratory Exam: Decreased Breath Sounds - Cardiovascular Exam Cardiovascular Exam: REGULAR RHYTHM, +S1, +S2 - GI/Abdominal Exam GI & Abdominal Exam: Soft, Diminished Bowel Sounds - Rectal Exam Rectal Exam: Deferred Assessment and Plan (1) Sepsis Status: Acute
--- NOTE | 2017-07-22 17:34 | CP.PCM.PN ---
Subjective - Date & Time of Evaluation Date of Evaluation: 07/22/17 Time of Evaluation: 08:00 - Subjective Subjective: fever and LBM c diff neg IV and PO rx in progress await ceretec scan Objective - Vital Signs/Intake and Output Vital Signs (last 24 hours): Temp Pulse Resp BP Pulse Ox 99.4 F 95 H 20 98/65 L 100 07/22/17 15:27 07/22/17 15:27 07/22/17 15:27 07/22/17 15:27 07/22/17 15:27 Intake and Output: 07/22/17 07/22/17 06:59 18:59 Intake Total 850 870 Balance 850 870 - Medications Medications: Current Medications Acetaminophen (Tylenol 325mg Tab) 650 mg PO Q6 PRN PRN Reason: Fever >100.4 F Last Admin: 07/22/17 07:35 Dose: 650 mg Enoxaparin Sodium (Lovenox) 40 mg SC DAILY [facility] Last Admin: 07/22/17 10:18 Dose: 40 mg Vancomycin/Sodium Chloride (Vancomycin 1 Gm/Ns 200 Ml) 1 gm in 200 mls @ 133.333 mls/hr IVPB DAILY [facility] PRN Reason: Protocol Stop: 07/23/17 10:01 Last Admin: 07/22/17 10:17 Dose: 133.333 mls/hr Meropenem 500 mg/ Sodium (Chloride) 100 mls @ 100 mls/hr IVPB Q6 [facility] PRN Reason: Protocol Last Admin: 07/22/17 17:13 Dose: 100 mls/hr Loperamide HCl (Imodium) 2 mg PO QID PRN PRN Reason: Diarrhea Morphine Sulfate (Morphine) 2 mg IVP Q4 PRN PRN Reason: Pain, severe (8-10) Last Admin: 07/22/17 14:15 Dose: 2 mg Mupirocin (Bactroban Ointment) 1 gm TOP DAILY PRN PRN Reason: Other Saccharomyces Boulardii (Florastor) 250 mg PO BID [facility] Last Admin: 07/22/17 17:13 Dose: 250 mg - Labs Labs: 07/21/17 07:53 07/21/17 07:53 - Constitutional Appears: Non-toxic, Cachectic, Chronically Ill - Head Exam Head Exam: NORMOCEPHALIC - Eye Exam Eye Exam: PERRL. absent: Scleral icterus Pupil Exam: NORMAL ACCOMODATION - ENT Exam ENT Exam: Mucous Membranes Dry - Neck Exam Neck Exam: absent: Lymphadenopathy - Respiratory Exam Respiratory Exam: Decreased Breath Sounds - Cardiovascular Exam Cardiovascular Exam: REGULAR RHYTHM - GI/Abdominal Exam GI & Abdominal Exam: Distended, Soft - Rectal Exam Rectal Exam: Deferred - Exam Exam: NORMAL INSPECTION - Extremities Exam Extremities Exam: Tenderness. absent: Calf Tenderness Additional comments: VASC: pedal pulses are fully palpable, skin temp runs warm to warm with increased calor noted to anterior distal leg and dorsal-medial foot, minor non- pitting edema noted to dorsal-medial midfoot NEURO: gross and protective pedal sensation are intact DERM: Superficial ulceration noted to medial ankle measures 4.0x1.8.x with mixture fibro-granular base, there is noemy-wound non-streaking erythema localized to wound margins. neg fluctuance, mild malodor. No noemy-wound maceration noted t MSK: tenderness to palpation of central aspect of wound and medial ankle, MMT is 5/5 all directions - Back Exam Back Exam: absent: CVA tenderness (L), CVA tenderness (R) - Neurological Exam Neurological Exam: Alert, Awake, Oriented x3 Neuro motor strength exam: Left Upper Extremity: 3, Right Upper Extremity: 3, Left Lower Extremity: 3, Right Lower Extremity: 3 - Psychiatric Exam Psychiatric exam: Depressed - Skin Skin Exam: Dry Assessment and Plan (1) Cellulitis of leg Status: Acute (2) IVDU (intravenous drug user) Status: Acute (3) Leg ulcer Status: Acute (4) HIV (human immunodeficiency virus infection) Status: Chronic - Assessment and Plan (Free Text) Assessment: ? OM as source of fever may need OR debridement of ulcer Dr Rodrigues on board recultured c diff neg r/o opportunistic infection prognosis guarded
[2017-07-22] MEDS: Tmp-Smz 800 mg-160 mg DS Tab PO SCH (18:24)
[2017-07-22] MEDS: Vancomycin 125 MG/5 ML SOLN (ORAL/RECTAL) PO SCH ×2 (18:37→21:09)
[2017-07-23] MEDS: Morphine 4 MG/ML VIAL IVP PRN ×5 (04:40→22:47)
[2017-07-23] MEDS: Tmp-Smz 800 mg-160 mg DS Tab PO SCH ×2 (06:28→17:32)
[2017-07-23 07:55] LABS: EOS % 0.1 % (0.0-4.0); HEMOGLOBIN 9.8 g/dL (11.0-16.0); LYMPH # 0.5 K/uL (1.0-4.3); LYMPH % 24.4 % (20.0-40.0); MEAN CORPUSCULAR HEMOGLOBIN 26.8 pg (27.0-31.0); MEAN CORPUSCULAR HGB CONC 33.5 g/dL (33.0-37.0); MEAN PLATELET VOLUME 8.4 fL (7.2-11.7); MONO # 0.3 K/uL (0.0-0.8); MONO % 16.1 % (0.0-10.0); NEUT # 1.2 K/uL (1.8-7.0); NEUT % 58.4 % (50.0-75.0); NRBC % 0.1 % (0.0-2.0); RBC 3.65 Mil/uL (3.80-5.20); RED CELL DISTRIBUTION WIDTH 15.8 % (11.5-14.5); WHITE BLOOD COUNT 2.1 K/uL (4.8-10.8)
[2017-07-23 08:04] LABS: BLOOD UREA NITROGEN 15 mg/dL (7-17); CALCIUM 8.4 mg/dl (8.6-10.4); GFR AFRICAN-AMERICAN > 60; GFR NON-AFRICAN AMERICAN > 60
[2017-07-23] MEDS: Enoxaparin 40 mg Syringe SC SCH (09:05)
[2017-07-23] MEDS: Saccharomyces Boulardi 250 mg Cap PO SCH ×2 (09:06→17:32)
[2017-07-23] MEDS ORDERED: Sodium Chloride 0.9% 1,000 ML IV ONE (09:47)
[2017-07-23] MEDS: Vancomycin 1 gm/NS 200 ml 1 GM/200 ML BAG IVPB SCH ×2 (10:20→21:04)
[2017-07-23] MEDS: Vancomycin 125 MG/5 ML SOLN (ORAL/RECTAL) PO SCH ×4 (10:20→21:04)
[2017-07-23] MEDS: Hydrocortisone 2.5% Rectal Cream(30 gm) PR SCH ×2 (10:35→17:32)
[2017-07-23] MEDS: Emtricitabine-Tenofovir 200 mg-300 mg Tab PO SCH (13:35)
--- NOTE | 2017-07-23 14:25 | CP.PCM.PN ---
Subjective - Date & Time of Evaluation Date of Evaluation: 07/23/17 Time of Evaluation: 09:30 - Subjective Subjective: Podiatry Progress Note- Dr. Rodrigues 47 yo female patient seen and evaluated with attending Dr. Rodrigues, for chronic superficial ulceration and cellulitis of RLE with chronic OM R foot. Patient is seen resting comfortably in bed, in NAD, and AA0x3. Reports same continue pain to the right foot at site of ulceration, well controlled at rest with breakthrough pain on direct contact. Pt experiencing reduction in diarrhea and had no overnight fever of chills. No other acute overnight events. Objective - Vital Signs/Intake and Output Vital Signs (last 24 hours): Temp Pulse Resp BP Pulse Ox 97.6 F 82 18 106/65 98 07/23/17 07:00 07/23/17 07:00 07/23/17 07:00 07/23/17 14:10 07/23/17 07:00 Intake and Output: 07/23/17 07/23/17 06:59 18:59 Intake Total 900 Balance 900 - Medications Medications: Current Medications Acetaminophen (Tylenol 325mg Tab) 650 mg PO Q6 PRN PRN Reason: Fever >100.4 F Last Admin: 07/22/17 07:35 Dose: 650 mg Dolutegravir Sodium (Tivicay) 50 mg PO DAILY [facility] PRN Reason: Protocol Last Admin: 07/23/17 13:35 Dose: 50 mg Emtricitabine/Tenofovir (Truvada 200 Mg-300 Mg) 1 tab PO DAILY [facility] PRN Reason: Protocol Last Admin: 07/23/17 13:35 Dose: 1 tab Enoxaparin Sodium (Lovenox) 40 mg SC DAILY [facility] Last Admin: 07/23/17 09:05 Dose: 40 mg Hydrocortisone (Anusol-Hc) 0 gm [place] BID [facility] Last Admin: 07/23/17 10:35 Dose: Not Given Vancomycin/Sodium Chloride (Vancomycin 1 Gm/Ns 200 Ml) 1 gm in 200 mls @ 133.333 mls/hr IVPB Q12H [facility] PRN Reason: Protocol Last Admin: 07/23/17 10:20 Dose: 133.333 mls/hr Loperamide HCl (Imodium) 2 mg PO QID PRN PRN Reason: Diarrhea Last Admin: 07/23/17 09:05 Dose: 2 mg Morphine Sulfate (Morphine) 2 mg IVP Q4 PRN PRN Reason: Pain, severe (8-10) Last Admin: 07/23/17 09:06 Dose: 2 mg Mupirocin (Bactroban Ointment) 1 gm TOP DAILY PRN PRN Reason: Other Saccharomyces Boulardii (Florastor) 250 mg PO BID [facility] Last Admin: 07/23/17 09:06 Dose: 250 mg Trimethoprim/Sulfamethoxazole (Bactrim Ds Tab) 1 tab PO Q12H [facility] PRN Reason: Protocol Last Admin: 07/23/17 06:28 Dose: 1 tab Vancomycin HCl (Vancocin (Oral Or Rectal Use)) 125 mg PO QID [facility] PRN Reason: Protocol Last Admin: 07/23/17 13:35 Dose: 125 mg - Labs Labs: 07/23/17 07:45 07/23/17 07:45 - Constitutional Appears: Well, Non-toxic, No Acute Distress - Extremities Exam Additional comments: VASC: pedal pulses are fully palpable, skin temp runs warm to warm with increased callor noted to anterior distal leg and dorsal-medial foot, minor non- pitting edema noted to dorsal-medial midfoot NEURO: gross and protective pedal sensation are intact DERM: Superficial ulceration noted to medial ankle measures 4.0x1.8.x with mixture fibro-granular base with macerated margn. No noemy-wound erythema noted. No fluctuance noted, no mal-odor noted. MSK: tenderness to palpation of central aspect of wound and medial ankle, MMT is 5/5 all directions - Neurological Exam Neurological Exam: Alert, Awake, Oriented x3 - Psychiatric Exam Psychiatric exam: Normal Affect, Normal Mood Assessment and Plan - Assessment and Plan (Free Text) Assessment: 47 y/o female patient with right lower extremity 1) chronic superficial ulceration and cellulitis; resolved 2) chronic tarsal bone osteomyelits. Plan: Pt S&E at bedside with attending, Dr. Rodrigues, who endorsed and agreed. Chart, labs and vitals reviewed: currently afebrile. WBC decreased to 2.1K. RLE bone scan (04/03/17): + OM tarsal bones and medial ankle (completed 6 weeks IV abx) Cerete bone scan-in progress, WBC taging complete. c/w IV abx, as per ID wound cleansed with saline, dressed with bactroban & DSD Weightbearing as tolerated in surgical shoe. Podiatry will continue to follow
--- NOTE | 2017-07-23 15:19 | CP.PCM.PN ---
Subjective - Date & Time of Evaluation Date of Evaluation: 07/23/17 Time of Evaluation: 09:25 - Subjective Subjective: Medicine progress note for Dr. Juarez's service: Patient seen and examined. Patient is a 47 year old female with PMHx osteomyelitis right foot and HIV who presented to the ED on 07/17 with complaint of recurrent right foot infection. She was previously on IV antibiotics for 6 weeks via PICC line at rehab center. Patient states that after he discharge from rehab center 3 months ago she has had poor medical follow up. She reports being off of HIV medications since her rehab stay due to inability to pay for medications. She states she was previously on Genvoya as outpatient. Patient states she is currently feeling okay and is ambulating around her room. She also reports diarrhea that has improved with immodium. She reports blood on toilet paper and states known history of hemorrhoid. Objective - Vital Signs/Intake and Output Vital Signs (last 24 hours): Temp Pulse Resp BP Pulse Ox 97.6 F 82 18 106/65 98 07/23/17 07:00 07/23/17 07:00 07/23/17 07:00 07/23/17 14:10 07/23/17 07:00 Intake and Output: 07/23/17 07/23/17 06:59 18:59 Intake Total 900 Balance 900 - Medications Medications: Current Medications Acetaminophen (Tylenol 325mg Tab) 650 mg PO Q6 PRN PRN Reason: Fever >100.4 F Last Admin: 07/22/17 07:35 Dose: 650 mg Dolutegravir Sodium (Tivicay) 50 mg PO DAILY [facility] PRN Reason: Protocol Last Admin: 07/23/17 13:35 Dose: 50 mg Emtricitabine/Tenofovir (Truvada 200 Mg-300 Mg) 1 tab PO DAILY [facility] PRN Reason: Protocol Last Admin: 07/23/17 13:35 Dose: 1 tab Enoxaparin Sodium (Lovenox) 40 mg SC DAILY [facility] Last Admin: 07/23/17 09:05 Dose: 40 mg Hydrocortisone (Anusol-Hc) 0 gm [place] BID [facility] Last Admin: 07/23/17 10:35 Dose: Not Given Vancomycin/Sodium Chloride (Vancomycin 1 Gm/Ns 200 Ml) 1 gm in 200 mls @ 133.333 mls/hr IVPB Q12H [facility] PRN Reason: Protocol Last Admin: 07/23/17 10:20 Dose: 133.333 mls/hr Loperamide HCl (Imodium) 2 mg PO QID PRN PRN Reason: Diarrhea Last Admin: 07/23/17 09:05 Dose: 2 mg Morphine Sulfate (Morphine) 2 mg IVP Q4 PRN PRN Reason: Pain, severe (8-10) Last Admin: 07/23/17 14:29 Dose: 2 mg Mupirocin (Bactroban Ointment) 1 gm TOP DAILY PRN PRN Reason: Other Saccharomyces Boulardii (Florastor) 250 mg PO BID [facility] Last Admin: 07/23/17 09:06 Dose: 250 mg Trimethoprim/Sulfamethoxazole (Bactrim Ds Tab) 1 tab PO Q12H [facility] PRN Reason: Protocol Last Admin: 07/23/17 06:28 Dose: 1 tab Vancomycin HCl (Vancocin (Oral Or Rectal Use)) 125 mg PO QID [facility] PRN Reason: Protocol Last Admin: 07/23/17 13:35 Dose: 125 mg - Labs Labs: 07/23/17 07:45 07/23/17 07:45 - Constitutional Appears: No Acute Distress, Chronically Ill - Head Exam Head Exam: ATRAUMATIC, NORMOCEPHALIC - Eye Exam Eye Exam: EOMI - ENT Exam ENT Exam: Mucous Membranes Dry - Neck Exam Neck Exam: Full ROM. absent: Lymphadenopathy - Respiratory Exam Respiratory Exam: Clear to Ausculation Bilateral, NORMAL BREATHING PATTERN. absent: Rales, Rhonchi, Wheezes - Cardiovascular Exam Cardiovascular Exam: +S1, +S2. absent: Tachycardia - GI/Abdominal Exam GI & Abdominal Exam: Soft, Normal Bowel Sounds. absent: Tenderness - Rectal Exam Rectal Exam: Hemorrhoids (12 o'clock position small erythematous and inflamed hemorrhoid, non-thrombosed, small amount of dried blood present) - Extremities Exam Additional comments: right foot wrapped in clean gauze left medial tibia with healed wound with pink granulation tissue Assessment and Plan - Assessment and Plan (Free Text) Assessment: Osteomyelitis Patient on vancomycin IV 1g Q12h, started 07/17 previously on zosyn from 07/17-07/22 previously given two doses meropenem on 07/22 previously given ancef in ER on 07/17 xrays unremarkable RLE bone scan (12/29/17): + OM tarsal bones and medial ankle (completed 6 weeks IV abx) patient refusing MRI, ceretec scan in progress, to be completed 07/24/17 Dr. Rodrigues, podiatry, consulted- help appreciated Dr. Peck, ID, consulted- help appreciated Tmax 102.9 @00:13 07/22/17- now afebrile for over 24 hours Diarrhea c. diff negative patient on PO vancomycin 125mg PO QID remainder stool cultures pending Hemorrhoidal bleed patient admits to increased bleeding due to diarrhea hemoglobin dropped from 11.4 to 9.8 heme occult positive stool lovenox held due to hemoglobin drop will repeat hemoglobin this afternoon to check for stability start anusol application to hemorrhoid Low blood pressure patient normally low-end normal episode of asymptomatic hypotension this morning patient dehydrated, given IVF bolus with response in BP, will continue maintenance fluids HIV restart HAART patient previously on Genvoya, non-formulary will start Tivicay and Truvada Absolute CD4 count 169 as measured on 07/20/17 Patient on Bactrim DS for PCP prophylaxis (started 07/19/17) Dr. 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 Juarez
[2017-07-23] MEDS: Sodium Chloride 0.9% 1,000 ML IV SCH (16:27)
--- NOTE | 2017-07-23 16:34 | CP.PCM.PN ---
Subjective - Date & Time of Evaluation Date of Evaluation: 07/23/17 Time of Evaluation: 08:40 - Subjective Subjective: clinically same Objective - Vital Signs/Intake and Output Vital Signs (last 24 hours): Temp Pulse Resp BP Pulse Ox 97.6 F 82 18 106/65 98 07/23/17 07:00 07/23/17 07:00 07/23/17 07:00 07/23/17 14:10 07/23/17 07:00 Intake and Output: 07/23/17 07/23/17 06:59 18:59 Intake Total 900 1600 Balance 900 1600 - Medications Medications: Current Medications Acetaminophen (Tylenol 325mg Tab) 650 mg PO Q6 PRN PRN Reason: Fever >100.4 F Last Admin: 07/22/17 07:35 Dose: 650 mg Dolutegravir Sodium (Tivicay) 50 mg PO DAILY [facility] PRN Reason: Protocol Last Admin: 07/23/17 13:35 Dose: 50 mg Emtricitabine/Tenofovir (Truvada 200 Mg-300 Mg) 1 tab PO DAILY [facility] PRN Reason: Protocol Last Admin: 07/23/17 13:35 Dose: 1 tab Enoxaparin Sodium (Lovenox) 40 mg SC DAILY [facility] Last Admin: 07/23/17 09:05 Dose: 40 mg Hydrocortisone (Anusol-Hc) 0 gm [place] BID [facility] Last Admin: 07/23/17 10:35 Dose: Not Given Vancomycin/Sodium Chloride (Vancomycin 1 Gm/Ns 200 Ml) 1 gm in 200 mls @ 133.333 mls/hr IVPB Q12H [facility] PRN Reason: Protocol Last Admin: 07/23/17 10:20 Dose: 133.333 mls/hr Sodium Chloride (Sodium Chloride 0.9%) 1,000 mls @ 100 mls/hr IV .Q10H [facility] Last Admin: 07/23/17 16:27 Dose: 100 mls/hr Loperamide HCl (Imodium) 2 mg PO QID PRN PRN Reason: Diarrhea Last Admin: 07/23/17 09:05 Dose: 2 mg Morphine Sulfate (Morphine) 2 mg IVP Q4 PRN PRN Reason: Pain, severe (8-10) Last Admin: 07/23/17 14:29 Dose: 2 mg Mupirocin (Bactroban Ointment) 1 gm TOP DAILY PRN PRN Reason: Other Saccharomyces Boulardii (Florastor) 250 mg PO BID [facility] Last Admin: 07/23/17 09:06 Dose: 250 mg Trimethoprim/Sulfamethoxazole (Bactrim Ds Tab) 1 tab PO Q12H [facility] PRN Reason: Protocol Last Admin: 07/23/17 06:28 Dose: 1 tab Vancomycin HCl (Vancocin (Oral Or Rectal Use)) 125 mg PO QID [facility] PRN Reason: Protocol Last Admin: 07/23/17 13:35 Dose: 125 mg - Labs Labs: 07/23/17 07:45 07/23/17 07:45 - Constitutional Appears: Well - Head Exam Head Exam: ATRAUMATIC, NORMAL INSPECTION, NORMOCEPHALIC - Eye Exam Eye Exam: EOMI, Normal appearance, PERRL Pupil Exam: NORMAL ACCOMODATION, PERRL - ENT Exam ENT Exam: Mucous Membranes Moist, Normal Exam - Neck Exam Neck Exam: Full ROM, Normal Inspection. absent: Lymphadenopathy - Respiratory Exam Respiratory Exam: Decreased Breath Sounds - Cardiovascular Exam Cardiovascular Exam: REGULAR RHYTHM, +S1, +S2 - GI/Abdominal Exam GI & Abdominal Exam: Soft, Diminished Bowel Sounds - Rectal Exam Rectal Exam: Deferred Assessment and Plan (1) Sepsis Status: Acute
[2017-07-23 16:50] LABS: BASO % 0.6 % (0.0-2.0); EOS % 0.1 % (0.0-4.0); HEMOGLOBIN 10.6 g/dL (11.0-16.0); LYMPH # 1.1 K/uL (1.0-4.3); LYMPH % 22.2 % (20.0-40.0); MEAN CORPUSCULAR HEMOGLOBIN 26.5 pg (27.0-31.0); MEAN CORPUSCULAR HGB CONC 32.7 g/dL (33.0-37.0); MEAN PLATELET VOLUME 8.2 fL (7.2-11.7); MONO # 0.7 K/uL (0.0-0.8); MONO % 14.3 % (0.0-10.0); NEUT # 3.2 K/uL (1.8-7.0); NEUT % 62.8 % (50.0-75.0); NRBC % 0.6 % (0.0-2.0); RBC 4.01 Mil/uL (3.80-5.20); RED CELL DISTRIBUTION WIDTH 16.5 % (11.5-14.5)
[2017-07-23 16:52] LABS: WHITE BLOOD COUNT 5.2 K/uL (4.8-10.8)
--- NOTE | 2017-07-23 18:46 | CP.PCM.PN ---
Subjective - Date & Time of Evaluation Date of Evaluation: 07/23/17 Time of Evaluation: 09:00 - Subjective Subjective: iv rx in progress HAART rx restarted Objective - Vital Signs/Intake and Output Vital Signs (last 24 hours): Temp Pulse Resp BP Pulse Ox 98.2 F 84 20 103/63 98 07/23/17 16:32 07/23/17 16:32 07/23/17 16:32 07/23/17 16:32 07/23/17 16:32 Intake and Output: 07/23/17 07/23/17 06:59 18:59 Intake Total 900 1600 Balance 900 1600 - Medications Medications: Current Medications Acetaminophen (Tylenol 325mg Tab) 650 mg PO Q6 PRN PRN Reason: Fever >100.4 F Last Admin: 07/22/17 07:35 Dose: 650 mg Dolutegravir Sodium (Tivicay) 50 mg PO DAILY [facility] PRN Reason: Protocol Last Admin: 07/23/17 13:35 Dose: 50 mg Emtricitabine/Tenofovir (Truvada 200 Mg-300 Mg) 1 tab PO DAILY [facility] PRN Reason: Protocol Last Admin: 07/23/17 13:35 Dose: 1 tab Enoxaparin Sodium (Lovenox) 40 mg SC DAILY [facility] Last Admin: 07/23/17 09:05 Dose: 40 mg Hydrocortisone (Anusol-Hc) 0 gm [place] BID [facility] Last Admin: 07/23/17 17:32 Dose: 1 applic Vancomycin/Sodium Chloride (Vancomycin 1 Gm/Ns 200 Ml) 1 gm in 200 mls @ 133.333 mls/hr IVPB Q12H [facility] PRN Reason: Protocol Last Admin: 07/23/17 10:20 Dose: 133.333 mls/hr Sodium Chloride (Sodium Chloride 0.9%) 1,000 mls @ 100 mls/hr IV .Q10H [facility] Last Admin: 07/23/17 16:27 Dose: 100 mls/hr Loperamide HCl (Imodium) 2 mg PO QID PRN PRN Reason: Diarrhea Last Admin: 07/23/17 09:05 Dose: 2 mg Morphine Sulfate (Morphine) 2 mg IVP Q4 PRN PRN Reason: Pain, severe (8-10) Last Admin: 07/23/17 18:41 Dose: 2 mg Mupirocin (Bactroban Ointment) 1 gm TOP DAILY PRN PRN Reason: Other Saccharomyces Boulardii (Florastor) 250 mg PO BID [facility] Last Admin: 07/23/17 17:32 Dose: 250 mg Trimethoprim/Sulfamethoxazole (Bactrim Ds Tab) 1 tab PO Q12H [facility] PRN Reason: Protocol Last Admin: 07/23/17 17:32 Dose: 1 tab Vancomycin HCl (Vancocin (Oral Or Rectal Use)) 125 mg PO QID [facility] PRN Reason: Protocol Last Admin: 07/23/17 17:32 Dose: 125 mg - Labs Labs: 07/23/17 16:42 07/23/17 07:45 - Constitutional Appears: Non-toxic, Chronically Ill - Head Exam Head Exam: NORMOCEPHALIC - Eye Exam Eye Exam: EOMI - ENT Exam ENT Exam: Mucous Membranes Dry - Neck Exam Neck Exam: absent: Lymphadenopathy - Respiratory Exam Respiratory Exam: Decreased Breath Sounds - Cardiovascular Exam Cardiovascular Exam: REGULAR RHYTHM - GI/Abdominal Exam GI & Abdominal Exam: Distended, Soft Assessment and Plan (1) Cellulitis of leg Status: Acute (2) IVDU (intravenous drug user) Status: Acute (3) Leg ulcer Status: Acute (4) HIV (human immunodeficiency virus infection) Status: Chronic
[2017-07-24] MEDS: Tmp-Smz 800 mg-160 mg DS Tab PO SCH ×2 (06:45→18:55)
[2017-07-24 09:13] LABS: BASO % 0.7 % (0.0-2.0); EOS % 0.5 % (0.0-4.0); HEMOGLOBIN 9.4 g/dL (11.0-16.0); LYMPH # 0.7 K/uL (1.0-4.3); LYMPH % 26.8 % (20.0-40.0); MEAN CELL VOLUME 80.6 fL (81.0-99.0); MEAN CORPUSCULAR HEMOGLOBIN 26.8 pg (27.0-31.0); MEAN CORPUSCULAR HGB CONC 33.2 g/dL (33.0-37.0); MEAN PLATELET VOLUME 8.2 fL (7.2-11.7); MONO # 0.2 K/uL (0.0-0.8); NEUT # 1.8 K/uL (1.8-7.0); NRBC % 0.1 % (0.0-2.0); RBC 3.53 Mil/uL (3.80-5.20); RED CELL DISTRIBUTION WIDTH 15.7 % (11.5-14.5); WHITE BLOOD COUNT 2.8 K/uL (4.8-10.8)
[2017-07-24 09:27] LABS: ALB/GLOB RATIO 0.7 (1.0-2.1); ALBUMIN 3.1 g/dL (3.5-5.0); ALT/SGPT 10 U/L (9-52); AST/SGOT 30 U/L (14-36); BLOOD UREA NITROGEN 12 mg/dL (7-17); CALCIUM 8.1 mg/dl (8.6-10.4); GFR AFRICAN-AMERICAN > 60; GFR NON-AFRICAN AMERICAN > 60
[2017-07-24] MEDS: Saccharomyces Boulardi 250 mg Cap PO SCH ×2 (09:49→18:56)
[2017-07-24] MEDS: Hydrocortisone 2.5% Rectal Cream(30 gm) PR SCH ×2 (09:49→18:56)
[2017-07-24] MEDS: Emtricitabine-Tenofovir 200 mg-300 mg Tab PO SCH (09:49)
[2017-07-24] MEDS: Morphine 4 MG/ML VIAL IVP PRN ×4 (09:50→22:58)
[2017-07-24] MEDS: Vancomycin 125 MG/5 ML SOLN (ORAL/RECTAL) PO SCH ×4 (09:52→22:24)
[2017-07-24] MEDS: Vancomycin 1 gm/NS 200 ml 1 GM/200 ML BAG IVPB SCH ×2 (11:00→22:23)
[2017-07-24] MEDS: Sodium Chloride 0.9% 1,000 ML IV SCH ×2 (11:35→22:25)
--- NOTE | 2017-07-24 11:52 | NM ---
PROCEDURE: Ceretec labeled white blood cell study HISTORY: right lower leg osteomyelitis mapping COMPARISON: 04/04/2017 three-phase bone scan 07/17/2017 radiographs right foot TECHNIQUE: 11.6 mCi technetium 99 M Ceretec labeled white blood cells administered intravenously. FINDINGS: No evidence of acute osteomyelitis. Expected uptake in the liver and spleen. Expected uptake in the alimentary tract. IMPRESSION: Negative examination. Evidence of osteomyelitis apparent on the prior three-phase bone scan is not currently identified.
--- NOTE | 2017-07-24 15:16 | CP.PCM.PN ---
Subjective - Date & Time of Evaluation Date of Evaluation: 07/24/17 Time of Evaluation: 10:00 - Subjective Subjective: clinically same Objective - Vital Signs/Intake and Output Vital Signs (last 24 hours): Temp Pulse Resp BP Pulse Ox 98.2 F 69 18 102/64 98 07/24/17 07:10 07/24/17 07:10 07/24/17 07:10 07/24/17 07:10 07/24/17 07:10 Intake and Output: 07/24/17 07/24/17 06:59 18:59 Intake Total 600 Balance 600 - Medications Medications: Current Medications Acetaminophen (Tylenol 325mg Tab) 650 mg PO Q6 PRN PRN Reason: Fever >100.4 F Last Admin: 07/22/17 07:35 Dose: 650 mg Dolutegravir Sodium (Tivicay) 50 mg PO DAILY [facility] PRN Reason: Protocol Last Admin: 07/24/17 09:49 Dose: 50 mg Emtricitabine/Tenofovir (Truvada 200 Mg-300 Mg) 1 tab PO DAILY [facility] PRN Reason: Protocol Last Admin: 07/24/17 09:49 Dose: 1 tab Enoxaparin Sodium (Lovenox) 40 mg SC DAILY [facility] Last Admin: 07/23/17 09:05 Dose: 40 mg Hydrocortisone (Anusol-Hc) 0 gm [place] BID [facility] Last Admin: 07/24/17 09:49 Dose: 1 applic Vancomycin/Sodium Chloride (Vancomycin 1 Gm/Ns 200 Ml) 1 gm in 200 mls @ 133.333 mls/hr IVPB Q12H [facility] PRN Reason: Protocol Last Admin: 07/24/17 11:00 Dose: 133.333 mls/hr Sodium Chloride (Sodium Chloride 0.9%) 1,000 mls @ 100 mls/hr IV .Q10H [facility] Last Admin: 07/24/17 11:35 Dose: Not Given Loperamide HCl (Imodium) 2 mg PO QID PRN PRN Reason: Diarrhea Last Admin: 07/24/17 09:55 Dose: 2 mg Morphine Sulfate (Morphine) 2 mg IVP Q4 PRN PRN Reason: Pain, severe (8-10) Last Admin: 07/24/17 14:26 Dose: 2 mg Mupirocin (Bactroban Ointment) 1 gm TOP DAILY PRN PRN Reason: Other Saccharomyces Boulardii (Florastor) 250 mg PO BID [facility] Last Admin: 07/24/17 09:49 Dose: 250 mg Tramadol HCl (Ultram) 50 mg PO Q8 PRN PRN Reason: Pain, severe (8-10) Last Admin: 07/24/17 03:37 Dose: 50 mg Trimethoprim/Sulfamethoxazole (Bactrim Ds Tab) 1 tab PO Q12H [facility] PRN Reason: Protocol Last Admin: 07/24/17 06:45 Dose: 1 tab Vancomycin HCl (Vancocin (Oral Or Rectal Use)) 125 mg PO QID [facility] PRN Reason: Protocol Last Admin: 07/24/17 13:11 Dose: 125 mg - Labs Labs: 07/24/17 09:03 07/24/17 09:03 - Constitutional Appears: Well - Head Exam Head Exam: ATRAUMATIC, NORMAL INSPECTION, NORMOCEPHALIC - Eye Exam Eye Exam: EOMI, Normal appearance, PERRL Pupil Exam: NORMAL ACCOMODATION, PERRL - ENT Exam ENT Exam: Mucous Membranes Moist, Normal Exam - Neck Exam Neck Exam: Full ROM, Normal Inspection. absent: Lymphadenopathy - Respiratory Exam Respiratory Exam: Decreased Breath Sounds - Cardiovascular Exam Cardiovascular Exam: REGULAR RHYTHM, +S1, +S2 - GI/Abdominal Exam GI & Abdominal Exam: Soft, Diminished Bowel Sounds - Rectal Exam Rectal Exam: Deferred Assessment and Plan (1) Sepsis Status: Acute - Assessment and Plan (Free Text) Plan: Osteomyelitis Pt had Ceretec scan done this morning. results pending Currently on vancomycin 1gm IV xrays unremarkable RLE bone scan (04/03/17): + OM tarsal bones and medial ankle (completed 6 weeks IV abx) Dr. Rodrigues, podiatry, consulted- help appreciated Dr. Peck, ID, consulted- help appreciated Tmax 102.9 @00:13 07/22/17- now afebrile for over 24 hours Diarrhea c. diff negative patient on PO vancomycin 125mg PO QID remainder stool cultures pending Imodium prn Hemorrhoidal bleed patient admits to increased bleeding due to diarrhea hemoglobin dropped from 11.4 to 9.8 heme occult positive stool lovenox held due to hemoglobin drop will repeat hemoglobin this afternoon to check for stability start anusol application to hemorrhoid Low blood pressure patient normally low-end normal episode of asymptomatic hypotension this morning patient dehydrated, given IVF bolus with response in BP, will continue maintenance fluids AIDS restart HAART patient previously on Genvoya, non-formulary will start Tivicay and Truvada Absolute CD4 count 169 as measured on 07/20/17 Patient on Bactrim DS for PCP prophylaxis (started 07/19/17) Dr. 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
--- NOTE | 2017-07-24 16:12 | CP.PCM.PN ---
<Lindsay Davis - Last Filed: 07/24/17 16:50> Subjective - Date & Time of Evaluation Date of Evaluation: 07/24/17 Time of Evaluation: 16:09 - Subjective Subjective: PGY2 progress note for Dr. Juarez Pt seen and examined at bedside. No acute events overnight. Pt resting comfortably in bed. C/O right foot pain. patient is resting comfortably in bed though. patient states that after she started the Imodium, diarrhea has improved. Patient is tolerating po intake. Patient denies having any N/V/F/C, CP, SOB. Objective - Vital Signs/Intake and Output Vital Signs (last 24 hours): Temp Pulse Resp BP Pulse Ox 98.2 F 69 18 102/64 98 07/24/17 07:10 07/24/17 07:10 07/24/17 07:10 07/24/17 07:10 07/24/17 07:10 Intake and Output: 07/24/17 07/24/17 06:59 18:59 Intake Total 600 Balance 600 - Medications Medications: Current Medications Acetaminophen (Tylenol 325mg Tab) 650 mg PO Q6 PRN PRN Reason: Fever >100.4 F Last Admin: 07/22/17 07:35 Dose: 650 mg Dolutegravir Sodium (Tivicay) 50 mg PO DAILY [facility] PRN Reason: Protocol Last Admin: 07/24/17 09:49 Dose: 50 mg Emtricitabine/Tenofovir (Truvada 200 Mg-300 Mg) 1 tab PO DAILY [facility] PRN Reason: Protocol Last Admin: 07/24/17 09:49 Dose: 1 tab Enoxaparin Sodium (Lovenox) 40 mg SC DAILY [facility] Last Admin: 07/23/17 09:05 Dose: 40 mg Hydrocortisone (Anusol-Hc) 0 gm [place] BID [facility] Last Admin: 07/24/17 09:49 Dose: 1 applic Vancomycin/Sodium Chloride (Vancomycin 1 Gm/Ns 200 Ml) 1 gm in 200 mls @ 133.333 mls/hr IVPB Q12H [facility] PRN Reason: Protocol Last Admin: 07/24/17 11:00 Dose: 133.333 mls/hr Sodium Chloride (Sodium Chloride 0.9%) 1,000 mls @ 100 mls/hr IV .Q10H [facility] Last Admin: 07/24/17 11:35 Dose: Not Given Loperamide HCl (Imodium) 2 mg PO QID PRN PRN Reason: Diarrhea Last Admin: 07/24/17 09:55 Dose: 2 mg Morphine Sulfate (Morphine) 2 mg IVP Q4 PRN PRN Reason: Pain, severe (8-10) Last Admin: 07/24/17 14:26 Dose: 2 mg Mupirocin (Bactroban Ointment) 1 gm TOP DAILY PRN PRN Reason: Other Saccharomyces Boulardii (Florastor) 250 mg PO BID [facility] Last Admin: 07/24/17 09:49 Dose: 250 mg Tramadol HCl (Ultram) 50 mg PO Q8 PRN PRN Reason: Pain, severe (8-10) Last Admin: 07/24/17 03:37 Dose: 50 mg Trimethoprim/Sulfamethoxazole (Bactrim Ds Tab) 1 tab PO Q12H [facility] PRN Reason: Protocol Last Admin: 07/24/17 06:45 Dose: 1 tab Vancomycin HCl (Vancocin (Oral Or Rectal Use)) 125 mg PO QID [facility] PRN Reason: Protocol Last Admin: 07/24/17 13:11 Dose: 125 mg - Labs Labs: 07/24/17 09:03 07/24/17 09:03 - Constitutional Appears: Non-toxic, No Acute Distress - Head Exam Head Exam: ATRAUMATIC - ENT Exam ENT Exam: Mucous Membranes Moist - Respiratory Exam Respiratory Exam: Clear to Ausculation Bilateral. absent: Accessory Muscle Use , Rales, Rhonchi, Wheezes, Respiratory Distress - Cardiovascular Exam Cardiovascular Exam: REGULAR RHYTHM, +S1, +S2. absent: Gallop, Rubs, Murmur - GI/Abdominal Exam GI & Abdominal Exam: Soft, Normal Bowel Sounds. absent: Distended, Firm, Guarding, Rigid, Tenderness, Organomegaly - Extremities Exam Extremities Exam: absent: Pedal Edema, Tenderness - Neurological Exam Neurological Exam: Alert, Awake, Oriented x3 - Psychiatric Exam Psychiatric exam: Normal Affect, Normal Mood - Skin Skin Exam: Dry, Intact, Normal Color, Warm Assessment and Plan - Assessment and Plan (Free Text) Assessment: Osteomyelitis Pt had Ceretec scan done this morning. results pending Currently on vancomycin 1gm IV xrays unremarkable RLE bone scan (04/03/17): + OM tarsal bones and medial ankle (completed 6 weeks IV abx) Dr. Rodrigues, podiatry, consulted- help appreciated Dr. Peck, ID, consulted- help appreciated Tmax 102.9 @00:13 07/22/17- now afebrile for over 24 hours Diarrhea c. diff negative patient on PO vancomycin 125mg PO QID remainder stool cultures pending Imodium prn Hemorrhoidal bleed patient admits to increased bleeding due to diarrhea hemoglobin dropped from 11.4 to 9.8 heme occult positive stool lovenox held due to hemoglobin drop will repeat hemoglobin this afternoon to check for stability start anusol application to hemorrhoid Low blood pressure patient normally low-end normal episode of asymptomatic hypotension this morning patient dehydrated, given IVF bolus with response in BP, will continue maintenance fluids AIDS restart HAART patient previously on Genvoya, non-formulary will start Tivicay and Truvada Absolute CD4 count 169 as measured on 07/20/17 Patient on Bactrim DS for PCP prophylaxis (started 07/19/17) Dr. 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 Juarez <Gill Juarez S - Last Filed: 07/27/17 21:40> Objective - Vital Signs/Intake and Output Vital Signs (last 24 hours): Temp Pulse Resp BP Pulse Ox 98.3 F 80 18 101/68 95 07/27/17 15:00 07/27/17 15:00 07/27/17 15:00 07/27/17 15:00 07/27/17 15:00 Intake and Output: 07/27/17 07/28/17 18:59 06:59 Intake Total 1200 500 Balance 1200 500 - Medications Medications: Current Medications Acetaminophen (Tylenol 325mg Tab) 650 mg PO Q6 PRN PRN Reason: Fever >100.4 F Last Admin: 07/25/17 08:37 Dose: 650 mg Dolutegravir Sodium (Tivicay) 50 mg PO DAILY [facility] PRN Reason: Protocol Last Admin: 07/27/17 10:31 Dose: 50 mg Emtricitabine/Tenofovir (Truvada 200 Mg-300 Mg) 1 tab PO DAILY [facility] PRN Reason: Protocol Last Admin: 07/27/17 10:31 Dose: 1 tab Enoxaparin Sodium (Lovenox) 40 mg SC DAILY [facility] Last Admin: 07/23/17 09:05 Dose: 40 mg Hydrocortisone (Anusol-Hc) 0 gm [place] BID [facility] Last Admin: 07/27/17 17:07 Dose: 1 applic Hydromorphone HCl (Dilaudid) 4 mg PO Q4H PRN PRN Reason: Pain, severe (8-10) Last Admin: 07/27/17 19:56 Dose: 4 mg Vancomycin/Sodium Chloride (Vancomycin 1 Gm/Ns 200 Ml) 1 gm in 200 mls @ 133.333 mls/hr IVPB Q12H [facility] PRN Reason: Protocol Last Admin: 07/27/17 10:32 Dose: 133.333 mls/hr Loperamide HCl (Imodium) 2 mg PO QID PRN PRN Reason: Diarrhea Last Admin: 07/26/17 09:51 Dose: 2 mg Mupirocin (Bactroban Ointment) 1 gm TOP DAILY PRN PRN Reason: Other Saccharomyces Boulardii (Florastor) 250 mg PO BID [facility] Last Admin: 07/27/17 17:06 Dose: 250 mg Tramadol HCl (Ultram) 50 mg PO Q8 PRN PRN Reason: Pain, severe (8-10) Last Admin: 07/25/17 13:17 Dose: 50 mg Vancomycin HCl (Vancocin (Oral Or Rectal Use)) 125 mg PO QID [facility] PRN Reason: Protocol Last Admin: 07/27/17 21:03 Dose: 125 mg - Labs Labs: 07/27/17 13:43 07/27/17 13:43 Assessment and Plan (1) Sepsis Status: Acute Attending/Attestation - Attestation I have personally seen and examined this patient.: Yes I have fully participated in the care of the patient.: Yes I have reviewed all pertinent clinical information, including history, physical exam and plan: Yes Notes (Text): case seen and d.w staff and resident, concurred with finding and management..
--- NOTE | 2017-07-24 17:10 | CP.PCM.PN ---
Subjective - Date & Time of Evaluation Date of Evaluation: 07/24/17 Time of Evaluation: 10:50 - Subjective Subjective: Podiatry Progress Note- Dr. Rodrigues 47 yo female patient seen and evaluated for chronic superficial ulceration and cellulitis of RLE with chronic OM R foot. Patient is seen resting comfortably in bed, in NAD, and AA0x3. Reports same continue pain to the right foot at site of ulceration, well controlled at rest with breakthrough pain on direct contact. Pt experiencing reduction in diarrhea and had no overnight fever of chills. No other acute overnight events. Objective - Vital Signs/Intake and Output Vital Signs (last 24 hours): Temp Pulse Resp BP Pulse Ox 97.8 F 75 20 116/76 97 07/24/17 16:00 07/24/17 16:00 07/24/17 16:00 07/24/17 16:00 07/24/17 16:00 Intake and Output: 07/24/17 07/24/17 06:59 18:59 Intake Total 600 1300 Balance 600 1300 - Medications Medications: Current Medications Acetaminophen (Tylenol 325mg Tab) 650 mg PO Q6 PRN PRN Reason: Fever >100.4 F Last Admin: 07/22/17 07:35 Dose: 650 mg Dolutegravir Sodium (Tivicay) 50 mg PO DAILY [facility] PRN Reason: Protocol Last Admin: 07/24/17 09:49 Dose: 50 mg Emtricitabine/Tenofovir (Truvada 200 Mg-300 Mg) 1 tab PO DAILY [facility] PRN Reason: Protocol Last Admin: 07/24/17 09:49 Dose: 1 tab Enoxaparin Sodium (Lovenox) 40 mg SC DAILY [facility] Last Admin: 07/23/17 09:05 Dose: 40 mg Hydrocortisone (Anusol-Hc) 0 gm [place] BID [facility] Last Admin: 07/24/17 09:49 Dose: 1 applic Vancomycin/Sodium Chloride (Vancomycin 1 Gm/Ns 200 Ml) 1 gm in 200 mls @ 133.333 mls/hr IVPB Q12H [facility] PRN Reason: Protocol Last Admin: 07/24/17 11:00 Dose: 133.333 mls/hr Sodium Chloride (Sodium Chloride 0.9%) 1,000 mls @ 100 mls/hr IV .Q10H [facility] Last Admin: 07/24/17 11:35 Dose: Not Given Loperamide HCl (Imodium) 2 mg PO QID PRN PRN Reason: Diarrhea Last Admin: 07/24/17 09:55 Dose: 2 mg Morphine Sulfate (Morphine) 2 mg IVP Q4 PRN PRN Reason: Pain, severe (8-10) Last Admin: 07/24/17 14:26 Dose: 2 mg Mupirocin (Bactroban Ointment) 1 gm TOP DAILY PRN PRN Reason: Other Saccharomyces Boulardii (Florastor) 250 mg PO BID [facility] Last Admin: 07/24/17 09:49 Dose: 250 mg Tramadol HCl (Ultram) 50 mg PO Q8 PRN PRN Reason: Pain, severe (8-10) Last Admin: 07/24/17 03:37 Dose: 50 mg Trimethoprim/Sulfamethoxazole (Bactrim Ds Tab) 1 tab PO Q24H [facility] PRN Reason: Protocol Stop: 09/03/17 17:01 Vancomycin HCl (Vancocin (Oral Or Rectal Use)) 125 mg PO QID [facility] PRN Reason: Protocol Last Admin: 07/24/17 13:11 Dose: 125 mg - Labs Labs: 07/24/17 09:03 07/24/17 09:03 - Constitutional Appears: Well, Non-toxic, No Acute Distress - Extremities Exam Additional comments: VASC: pedal pulses are fully palpable, skin temp runs warm to warm with increased callor noted to anterior distal leg and dorsal-medial foot, minor non- pitting edema noted to dorsal-medial midfoot NEURO: gross and protective pedal sensation are intact DERM: Superficial ulceration noted to medial ankle measures 3.8 x1.5.x with mixture fibro-granular base with macerated margn. No noemy-wound erythema noted. No fluctuance noted, no mal-odor noted. MSK: tenderness to palpation of central aspect of wound and medial ankle, MMT is 5/5 all directions - Neurological Exam Neurological Exam: Alert, Awake, Oriented x3 - Psychiatric Exam Psychiatric exam: Normal Affect, Normal Mood Assessment and Plan - Assessment and Plan (Free Text) Assessment: 47 y/o female patient with right lower extremity 1) chronic superficial ulceration and cellulitis; resolved 2) chronic tarsal bone osteomyelitis. Plan: Pt S&E at bedside. Discussed with attending, Dr. Rodrigues, who endorsed and agreed. Chart, labs and vitals reviewed: currently afebrile. WBC = 2.8. RLE bone scan (04/03/17): + OM tarsal bones and medial ankle (completed 6 weeks IV abx) [facility] bone scan results- negative for osteomyelits. c/w IV abx, as per ID wound cleansed with saline, dressed with bactroban & DSD Weightbearing as tolerated in surgical shoe. Podiatry will continue to follow
--- NOTE | 2017-07-24 18:17 | CP.PCM.PN ---
Subjective - Date & Time of Evaluation Date of Evaluation: 07/24/17 Time of Evaluation: 08:00 - Subjective Subjective: 47 yo female patient seen and evaluated for chronic superficial ulceration and cellulitis of RLE with chronic OM R foot. Patient is seen resting comfortably in bed, in NAD, and AA0x3. Pt experiencing reduction in diarrhea Objective - Vital Signs/Intake and Output Vital Signs (last 24 hours): Temp Pulse Resp BP Pulse Ox 97.8 F 75 20 116/76 97 07/24/17 16:00 07/24/17 16:00 07/24/17 16:00 07/24/17 16:00 07/24/17 16:00 Intake and Output: 07/24/17 07/24/17 06:59 18:59 Intake Total 600 1300 Balance 600 1300 - Medications Medications: Current Medications Acetaminophen (Tylenol 325mg Tab) 650 mg PO Q6 PRN PRN Reason: Fever >100.4 F Last Admin: 07/22/17 07:35 Dose: 650 mg Dolutegravir Sodium (Tivicay) 50 mg PO DAILY [facility] PRN Reason: Protocol Last Admin: 07/24/17 09:49 Dose: 50 mg Emtricitabine/Tenofovir (Truvada 200 Mg-300 Mg) 1 tab PO DAILY [facility] PRN Reason: Protocol Last Admin: 07/24/17 09:49 Dose: 1 tab Enoxaparin Sodium (Lovenox) 40 mg SC DAILY [facility] Last Admin: 07/23/17 09:05 Dose: 40 mg Hydrocortisone (Anusol-Hc) 0 gm [place] BID [facility] Last Admin: 07/24/17 09:49 Dose: 1 applic Vancomycin/Sodium Chloride (Vancomycin 1 Gm/Ns 200 Ml) 1 gm in 200 mls @ 133.333 mls/hr IVPB Q12H [facility] PRN Reason: Protocol Last Admin: 07/24/17 11:00 Dose: 133.333 mls/hr Sodium Chloride (Sodium Chloride 0.9%) 1,000 mls @ 100 mls/hr IV .Q10H [facility] Last Admin: 07/24/17 11:35 Dose: Not Given Loperamide HCl (Imodium) 2 mg PO QID PRN PRN Reason: Diarrhea Last Admin: 07/24/17 09:55 Dose: 2 mg Morphine Sulfate (Morphine) 2 mg IVP Q4 PRN PRN Reason: Pain, severe (8-10) Last Admin: 07/24/17 14:26 Dose: 2 mg Mupirocin (Bactroban Ointment) 1 gm TOP DAILY PRN PRN Reason: Other Saccharomyces Boulardii (Florastor) 250 mg PO BID [facility] Last Admin: 07/24/17 09:49 Dose: 250 mg Tramadol HCl (Ultram) 50 mg PO Q8 PRN PRN Reason: Pain, severe (8-10) Last Admin: 07/24/17 03:37 Dose: 50 mg Trimethoprim/Sulfamethoxazole (Bactrim Ds Tab) 1 tab PO Q24H [facility] PRN Reason: Protocol Stop: 09/03/17 17:01 Vancomycin HCl (Vancocin (Oral Or Rectal Use)) 125 mg PO QID [facility] PRN Reason: Protocol Last Admin: 07/24/17 13:11 Dose: 125 mg - Labs Labs: 07/24/17 09:03 07/24/17 09:03 - Constitutional Appears: Non-toxic, Cachectic, Chronically Ill - Head Exam Head Exam: NORMOCEPHALIC - Eye Exam Eye Exam: PERRL. absent: Scleral icterus - ENT Exam ENT Exam: Mucous Membranes Dry, Normal Oropharynx - Neck Exam Neck Exam: absent: Lymphadenopathy - Respiratory Exam Respiratory Exam: Decreased Breath Sounds, Rhonchi - Cardiovascular Exam Cardiovascular Exam: REGULAR RHYTHM, +S1, +S2 - GI/Abdominal Exam GI & Abdominal Exam: Distended, Soft. absent: Tenderness - Rectal Exam Rectal Exam: Deferred - Exam Exam: NORMAL INSPECTION - Extremities Exam Extremities Exam: Tenderness Additional comments: - Extremities Exam Additional comments: VASC: pedal pulses are fully palpable, skin temp runs warm to warm with increased callor noted to anterior distal leg and dorsal-medial foot, minor non- pitting edema noted to dorsal-medial midfoot NEURO: gross and protective pedal sensation are intact DERM: Superficial ulceration noted to medial ankle measures 3.8 x1.5.x with mixture fibro-granular base with macerated margn. No noemy-wound erythema noted. No fluctuance noted, no mal-odor noted. MSK: tenderness to palpation of central aspect of wound and medial ankle, MMT is 5/5 all directions - Back Exam Back Exam: absent: CVA tenderness (L), CVA tenderness (R), paraspinal tenderness - Neurological Exam Neurological Exam: Alert, Awake, Normal Gait, Oriented x3 Neuro motor strength exam: Left Upper Extremity: 4, Right Upper Extremity: 4, Left Lower Extremity: 4, Right Lower Extremity: 4 - Psychiatric Exam Psychiatric exam: Depressed - Skin Skin Exam: Dry Assessment and Plan (1) Cellulitis of leg Status: Acute (2) IVDU (intravenous drug user) Status: Acute (3) Leg ulcer Status: Acute (4) HIV (human immunodeficiency virus infection) Status: Chronic - Assessment and Plan (Free Text) Assessment: cont iv rx await mri report restarted HAART rx cont Bactrim for PCP prophylaxis
[2017-07-25] MEDS: Morphine 4 MG/ML VIAL IVP PRN ×2 (03:16→08:37)
[2017-07-25] MEDS: Sodium Chloride 0.9% 1,000 ML IV SCH ×4 (07:27→21:10)
[2017-07-25] MEDS: Saccharomyces Boulardi 250 mg Cap PO SCH ×2 (09:59→17:12)
[2017-07-25] MEDS: Emtricitabine-Tenofovir 200 mg-300 mg Tab PO SCH (09:59)
[2017-07-25] MEDS: Vancomycin 125 MG/5 ML SOLN (ORAL/RECTAL) PO SCH ×4 (09:59→21:10)
[2017-07-25] MEDS: Hydrocortisone 2.5% Rectal Cream(30 gm) PR SCH ×2 (10:00→17:14)
[2017-07-25] MEDS: Vancomycin 1 gm/NS 200 ml 1 GM/200 ML BAG IVPB SCH ×2 (10:00→21:10)
--- NOTE | 2017-07-25 14:25 | CP.PCM.PN ---
Subjective - Date & Time of Evaluation Date of Evaluation: 07/25/17 Time of Evaluation: 14:23 - Subjective Subjective: Podiatry progress noted - Dr. Rodrigues 47 year old female seen and evaluated at bedside for chronic superficial ulceration of RLE with chronic OM of R foot with attending Dr. Rodrigues. Patient is AAO x 3 and NAD, resting comfortably in bed. Denies any acute overnight events or new pedal complaints. States that pain is well controlled at this time. Denies any recent N/V/F/C/CP/SOB/D/posterior calf pain when squeezed Objective - Vital Signs/Intake and Output Vital Signs (last 24 hours): Temp Pulse Resp BP Pulse Ox 98.7 F 84 18 103/65 97 07/25/17 09:37 07/25/17 07:53 07/25/17 07:53 07/25/17 07:53 07/25/17 07:53 Intake and Output: 07/25/17 07/25/17 06:59 18:59 Intake Total 800 Balance 800 - Medications Medications: Current Medications Acetaminophen (Tylenol 325mg Tab) 650 mg PO Q6 PRN PRN Reason: Fever >100.4 F Last Admin: 07/25/17 08:37 Dose: 650 mg Dolutegravir Sodium (Tivicay) 50 mg PO DAILY [facility] PRN Reason: Protocol Last Admin: 07/25/17 09:59 Dose: 50 mg Emtricitabine/Tenofovir (Truvada 200 Mg-300 Mg) 1 tab PO DAILY [facility] PRN Reason: Protocol Last Admin: 07/25/17 09:59 Dose: 1 tab Enoxaparin Sodium (Lovenox) 40 mg SC DAILY [facility] Last Admin: 07/23/17 09:05 Dose: 40 mg Hydrocortisone (Anusol-Hc) 0 gm NV BID [facility] Last Admin: 07/25/17 10:00 Dose: 1 applic Vancomycin/Sodium Chloride (Vancomycin 1 Gm/Ns 200 Ml) 1 gm in 200 mls @ 133.333 mls/hr IVPB Q12H [facility] PRN Reason: Protocol Last Admin: 07/25/17 10:00 Dose: 133.333 mls/hr Sodium Chloride (Sodium Chloride 0.9%) 1,000 mls @ 100 mls/hr IV .Q10H [facility] Last Admin: 07/25/17 08:36 Dose: 100 mls/hr Loperamide HCl (Imodium) 2 mg PO QID PRN PRN Reason: Diarrhea Last Admin: 07/25/17 08:36 Dose: 2 mg Morphine Sulfate (Morphine) 2 mg IVP Q4 PRN PRN Reason: Pain, severe (8-10) Last Admin: 07/25/17 08:37 Dose: 2 mg Mupirocin (Bactroban Ointment) 1 gm TOP DAILY PRN PRN Reason: Other Saccharomyces Boulardii (Florastor) 250 mg PO BID [facility] Last Admin: 07/25/17 09:59 Dose: 250 mg Tramadol HCl (Ultram) 50 mg PO Q8 PRN PRN Reason: Pain, severe (8-10) Last Admin: 07/25/17 13:17 Dose: 50 mg Trimethoprim/Sulfamethoxazole (Bactrim Ds Tab) 1 tab PO Q24H [facility] PRN Reason: Protocol Stop: 09/03/17 17:01 Last Admin: 07/24/17 18:55 Dose: 1 tab Vancomycin HCl (Vancocin (Oral Or Rectal Use)) 125 mg PO QID [facility] PRN Reason: Protocol Last Admin: 07/25/17 13:17 Dose: 125 mg - Labs Labs: 07/24/17 09:03 07/24/17 09:03 - Constitutional Appears: Well, Non-toxic, No Acute Distress - Extremities Exam Additional comments: VASC: pedal pulses are fully palpable, skin temp runs warm to warm with increased calor noted to anterior distal leg and dorsal-medial foot, minor non- pitting edema noted to dorsal-medial midfoot NEURO: gross and protective pedal sensation are intact DERM: Superficial ulceration noted to medial ankle measures 3.8 x1.5.x with mixture fibro-granular base with macerated margin. No noemy-wound erythema noted. No fluctuance noted, no mal-odor or drainage noted. No other clinical signs of infection noted at this time. MSK: tenderness to palpation of central aspect of wound and medial ankle, MMT is 5/5 all directions - Neurological Exam Neurological Exam: Alert, Awake, Oriented x3 - Psychiatric Exam Psychiatric exam: Normal Affect, Normal Mood Assessment and Plan - Assessment and Plan (Free Text) Assessment: 47 year old female seen and evaluated at bedside for chronic superficial ulceration of RLE with chronic OM of R foot with attending Dr. Rodrigues Plan: Patient seen and evaluated at bedside with attending Dr. Rodrigues Charts, labs, vitals reviewed Continue IV abx per ID Continue medical management per medicine team Ceretec bone scan - negative for acute OM in foot Wound dressed with bactorban, xeroform, DSD No plan for further surgical intervention at this time Patient to follow up with Dr. Rodrigues upon discharge Podiatry will continue to follow while patient in house
[2017-07-25] MEDS: Tmp-Smz 800 mg-160 mg DS Tab PO SCH (17:12)
--- NOTE | 2017-07-25 20:39 | CP.PCM.PN ---
Subjective - Date & Time of Evaluation Date of Evaluation: 07/25/17 Time of Evaluation: 07:40 - Subjective Subjective: clinically same Objective - Vital Signs/Intake and Output Vital Signs (last 24 hours): Temp Pulse Resp BP Pulse Ox 98.3 F 83 18 103/67 96 07/25/17 15:00 07/25/17 15:00 07/25/17 15:00 07/25/17 15:00 07/25/17 15:00 Intake and Output: 07/25/17 07/26/17 18:59 06:59 Intake Total 1200 Balance 1200 - Medications Medications: Current Medications Acetaminophen (Tylenol 325mg Tab) 650 mg PO Q6 PRN PRN Reason: Fever >100.4 F Last Admin: 07/25/17 08:37 Dose: 650 mg Dolutegravir Sodium (Tivicay) 50 mg PO DAILY [facility] PRN Reason: Protocol Last Admin: 07/25/17 09:59 Dose: 50 mg Emtricitabine/Tenofovir (Truvada 200 Mg-300 Mg) 1 tab PO DAILY [facility] PRN Reason: Protocol Last Admin: 07/25/17 09:59 Dose: 1 tab Enoxaparin Sodium (Lovenox) 40 mg SC DAILY [facility] Last Admin: 07/23/17 09:05 Dose: 40 mg Hydrocortisone (Anusol-Hc) 0 gm RI BID [facility] Last Admin: 07/25/17 17:14 Dose: 1 applic Hydromorphone HCl (Dilaudid) 4 mg PO Q4H PRN PRN Reason: Pain, severe (8-10) Last Admin: 07/25/17 19:21 Dose: 4 mg Vancomycin/Sodium Chloride (Vancomycin 1 Gm/Ns 200 Ml) 1 gm in 200 mls @ 133.333 mls/hr IVPB Q12H [facility] PRN Reason: Protocol Last Admin: 07/25/17 10:00 Dose: 133.333 mls/hr Sodium Chloride (Sodium Chloride 0.9%) 1,000 mls @ 100 mls/hr IV .Q10H [facility] Last Admin: 07/25/17 17:15 Dose: Not Given Loperamide HCl (Imodium) 2 mg PO QID PRN PRN Reason: Diarrhea Last Admin: 07/25/17 08:36 Dose: 2 mg Morphine Sulfate (Morphine) 2 mg IVP Q4 PRN PRN Reason: Pain, severe (8-10) Last Admin: 07/25/17 08:37 Dose: 2 mg Mupirocin (Bactroban Ointment) 1 gm TOP DAILY PRN PRN Reason: Other Saccharomyces Boulardii (Florastor) 250 mg PO BID [facility] Last Admin: 07/25/17 17:12 Dose: 250 mg Tramadol HCl (Ultram) 50 mg PO Q8 PRN PRN Reason: Pain, severe (8-10) Last Admin: 07/25/17 13:17 Dose: 50 mg Trimethoprim/Sulfamethoxazole (Bactrim Ds Tab) 1 tab PO Q24H [facility] PRN Reason: Protocol Stop: 09/03/17 17:01 Last Admin: 07/25/17 17:12 Dose: 1 tab Vancomycin HCl (Vancocin (Oral Or Rectal Use)) 125 mg PO QID [facility] PRN Reason: Protocol Last Admin: 07/25/17 17:12 Dose: 125 mg - Labs Labs: 07/24/17 09:03 07/24/17 09:03 Assessment and Plan (1) Sepsis Status: Acute
[2017-07-26] MEDS: Sodium Chloride 0.9% 1,000 ML IV SCH ×2 (06:11→06:12)
[2017-07-26] MEDS: Emtricitabine-Tenofovir 200 mg-300 mg Tab PO SCH (09:51)
[2017-07-26] MEDS: Vancomycin 125 MG/5 ML SOLN (ORAL/RECTAL) PO SCH ×4 (09:51→21:44)
[2017-07-26] MEDS: Saccharomyces Boulardi 250 mg Cap PO SCH ×2 (09:51→17:35)
[2017-07-26] MEDS: Vancomycin 1 gm/NS 200 ml 1 GM/200 ML BAG IVPB SCH ×2 (09:52→21:43)
[2017-07-26] MEDS: Hydrocortisone 2.5% Rectal Cream(30 gm) PR SCH ×2 (10:13→17:36)
--- NOTE | 2017-07-26 13:49 | CP.PCM.PN ---
Subjective - Date & Time of Evaluation Date of Evaluation: 07/26/17 Time of Evaluation: 07:40 - Subjective Subjective: clinically same Objective - Vital Signs/Intake and Output Vital Signs (last 24 hours): Temp Pulse Resp BP Pulse Ox 98.7 F 82 18 96/62 L 97 07/26/17 07:39 07/26/17 07:39 07/26/17 07:39 07/26/17 07:39 07/26/17 07:39 Intake and Output: 07/26/17 07/26/17 06:59 18:59 Intake Total 1300 Balance 1300 - Medications Medications: Current Medications Acetaminophen (Tylenol 325mg Tab) 650 mg PO Q6 PRN PRN Reason: Fever >100.4 F Last Admin: 07/25/17 08:37 Dose: 650 mg Dolutegravir Sodium (Tivicay) 50 mg PO DAILY [facility] PRN Reason: Protocol Last Admin: 07/26/17 09:52 Dose: 50 mg Emtricitabine/Tenofovir (Truvada 200 Mg-300 Mg) 1 tab PO DAILY [facility] PRN Reason: Protocol Last Admin: 07/26/17 09:51 Dose: 1 tab Enoxaparin Sodium (Lovenox) 40 mg SC DAILY [facility] Last Admin: 07/23/17 09:05 Dose: 40 mg Hydrocortisone (Anusol-Hc) 0 gm [place] BID [facility] Last Admin: 07/26/17 10:13 Dose: 1 applic Hydromorphone HCl (Dilaudid) 4 mg PO Q4H PRN PRN Reason: Pain, severe (8-10) Last Admin: 07/26/17 13:13 Dose: 4 mg Vancomycin/Sodium Chloride (Vancomycin 1 Gm/Ns 200 Ml) 1 gm in 200 mls @ 133.333 mls/hr IVPB Q12H [facility] PRN Reason: Protocol Last Admin: 07/26/17 09:52 Dose: 133.333 mls/hr Sodium Chloride (Sodium Chloride 0.9%) 1,000 mls @ 100 mls/hr IV .Q10H [facility] Last Admin: 07/26/17 06:12 Dose: Not Given Loperamide HCl (Imodium) 2 mg PO QID PRN PRN Reason: Diarrhea Last Admin: 07/26/17 09:51 Dose: 2 mg Morphine Sulfate (Morphine) 2 mg IVP Q4 PRN PRN Reason: Pain, severe (8-10) Last Admin: 07/25/17 08:37 Dose: 2 mg Mupirocin (Bactroban Ointment) 1 gm TOP DAILY PRN PRN Reason: Other Saccharomyces Boulardii (Florastor) 250 mg PO BID [facility] Last Admin: 07/26/17 09:51 Dose: 250 mg Tramadol HCl (Ultram) 50 mg PO Q8 PRN PRN Reason: Pain, severe (8-10) Last Admin: 07/25/17 13:17 Dose: 50 mg Trimethoprim/Sulfamethoxazole (Bactrim Ds Tab) 1 tab PO Q24H [facility] PRN Reason: Protocol Stop: 09/03/17 17:01 Last Admin: 07/25/17 17:12 Dose: 1 tab Vancomycin HCl (Vancocin (Oral Or Rectal Use)) 125 mg PO QID [facility] PRN Reason: Protocol Last Admin: 07/26/17 13:12 Dose: 125 mg - Labs Labs: 07/24/17 09:03 07/24/17 09:03 - Constitutional Appears: Well - Head Exam Head Exam: ATRAUMATIC, NORMAL INSPECTION, NORMOCEPHALIC - Eye Exam Eye Exam: EOMI, Normal appearance, PERRL Pupil Exam: NORMAL ACCOMODATION, PERRL - ENT Exam ENT Exam: Mucous Membranes Moist, Normal Exam - Neck Exam Neck Exam: Full ROM, Normal Inspection. absent: Lymphadenopathy - Respiratory Exam Respiratory Exam: Decreased Breath Sounds - Cardiovascular Exam Cardiovascular Exam: REGULAR RHYTHM, +S1, +S2 - GI/Abdominal Exam GI & Abdominal Exam: Soft, Diminished Bowel Sounds - Rectal Exam Rectal Exam: Deferred Assessment and Plan (1) Sepsis Status: Acute
--- NOTE | 2017-07-26 15:11 | CP.PCM.PN ---
Subjective - Date & Time of Evaluation Date of Evaluation: 07/26/17 Time of Evaluation: 09:00 - Subjective Subjective: awaiting PICC line placement needs 2 more weeks IV rx Objective - Vital Signs/Intake and Output Vital Signs (last 24 hours): Temp Pulse Resp BP Pulse Ox 98.7 F 82 18 96/62 L 97 07/26/17 07:39 07/26/17 07:39 07/26/17 07:39 07/26/17 07:39 07/26/17 07:39 Intake and Output: 07/26/17 07/26/17 06:59 18:59 Intake Total 1300 Balance 1300 - Medications Medications: Current Medications Acetaminophen (Tylenol 325mg Tab) 650 mg PO Q6 PRN PRN Reason: Fever >100.4 F Last Admin: 07/25/17 08:37 Dose: 650 mg Dolutegravir Sodium (Tivicay) 50 mg PO DAILY [facility] PRN Reason: Protocol Last Admin: 07/26/17 09:52 Dose: 50 mg Emtricitabine/Tenofovir (Truvada 200 Mg-300 Mg) 1 tab PO DAILY [facility] PRN Reason: Protocol Last Admin: 07/26/17 09:51 Dose: 1 tab Enoxaparin Sodium (Lovenox) 40 mg SC DAILY [facility] Last Admin: 07/23/17 09:05 Dose: 40 mg Hydrocortisone (Anusol-Hc) 0 gm [place] BID [facility] Last Admin: 07/26/17 10:13 Dose: 1 applic Hydromorphone HCl (Dilaudid) 4 mg PO Q4H PRN PRN Reason: Pain, severe (8-10) Last Admin: 07/26/17 13:13 Dose: 4 mg Vancomycin/Sodium Chloride (Vancomycin 1 Gm/Ns 200 Ml) 1 gm in 200 mls @ 133.333 mls/hr IVPB Q12H [facility] PRN Reason: Protocol Last Admin: 07/26/17 09:52 Dose: 133.333 mls/hr Sodium Chloride (Sodium Chloride 0.9%) 1,000 mls @ 100 mls/hr IV .Q10H [facility] Last Admin: 07/26/17 06:12 Dose: Not Given Loperamide HCl (Imodium) 2 mg PO QID PRN PRN Reason: Diarrhea Last Admin: 07/26/17 09:51 Dose: 2 mg Morphine Sulfate (Morphine) 2 mg IVP Q4 PRN PRN Reason: Pain, severe (8-10) Last Admin: 07/25/17 08:37 Dose: 2 mg Mupirocin (Bactroban Ointment) 1 gm TOP DAILY PRN PRN Reason: Other Saccharomyces Boulardii (Florastor) 250 mg PO BID [facility] Last Admin: 07/26/17 09:51 Dose: 250 mg Tramadol HCl (Ultram) 50 mg PO Q8 PRN PRN Reason: Pain, severe (8-10) Last Admin: 07/25/17 13:17 Dose: 50 mg Vancomycin HCl (Vancocin (Oral Or Rectal Use)) 125 mg PO QID [facility] PRN Reason: Protocol Last Admin: 07/26/17 13:12 Dose: 125 mg - Labs Labs: 07/24/17 09:03 07/24/17 09:03 - Constitutional Appears: Non-toxic, Chronically Ill - Head Exam Head Exam: NORMOCEPHALIC - Eye Exam Eye Exam: PERRL - ENT Exam ENT Exam: Mucous Membranes Dry - Neck Exam Neck Exam: absent: Lymphadenopathy - Respiratory Exam Respiratory Exam: Decreased Breath Sounds - Cardiovascular Exam Cardiovascular Exam: REGULAR RHYTHM - GI/Abdominal Exam GI & Abdominal Exam: Distended, Soft - Rectal Exam Rectal Exam: Deferred - Exam Exam: NORMAL INSPECTION - Extremities Exam Extremities Exam: absent: Pedal Edema - Back Exam Back Exam: absent: CVA tenderness (L), CVA tenderness (R) - Neurological Exam Neurological Exam: Alert, Awake, Oriented x3 Neuro motor strength exam: Left Upper Extremity: 4, Right Upper Extremity: 4, Left Lower Extremity: 4, Right Lower Extremity: 4 - Psychiatric Exam Psychiatric exam: Depressed - Skin Skin Exam: Dry Assessment and Plan (1) Cellulitis of leg Status: Acute (2) IVDU (intravenous drug user) Status: Acute (3) Leg ulcer Status: Acute (4) HIV (human immunodeficiency virus infection) Status: Chronic
--- NOTE | 2017-07-26 15:18 | CP.PCM.PN ---
Subjective - Date & Time of Evaluation Date of Evaluation: 07/26/17 Time of Evaluation: 15:16 - Subjective Subjective: Podiatry progress noted - Dr. 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 Patient is AAO x 3 and NAD, resting comfortably in bed. Denies any acute overnight events or new pedal complaints. States that pain is well controlled at this time. Denies any recent N/V/F/C/CP/SOB/D/posterior calf pain when squeezed Objective - Vital Signs/Intake and Output Vital Signs (last 24 hours): Temp Pulse Resp BP Pulse Ox 98.7 F 82 18 96/62 L 97 07/26/17 07:39 07/26/17 07:39 07/26/17 07:39 07/26/17 07:39 07/26/17 07:39 Intake and Output: 07/26/17 07/26/17 06:59 18:59 Intake Total 1300 Balance 1300 - Medications Medications: Current Medications Acetaminophen (Tylenol 325mg Tab) 650 mg PO Q6 PRN PRN Reason: Fever >100.4 F Last Admin: 07/25/17 08:37 Dose: 650 mg Dolutegravir Sodium (Tivicay) 50 mg PO DAILY [facility] PRN Reason: Protocol Last Admin: 07/26/17 09:52 Dose: 50 mg Emtricitabine/Tenofovir (Truvada 200 Mg-300 Mg) 1 tab PO DAILY [facility] PRN Reason: Protocol Last Admin: 07/26/17 09:51 Dose: 1 tab Enoxaparin Sodium (Lovenox) 40 mg SC DAILY [facility] Last Admin: 07/23/17 09:05 Dose: 40 mg Hydrocortisone (Anusol-Hc) 0 gm [place] BID [facility] Last Admin: 07/26/17 10:13 Dose: 1 applic Hydromorphone HCl (Dilaudid) 4 mg PO Q4H PRN PRN Reason: Pain, severe (8-10) Last Admin: 07/26/17 13:13 Dose: 4 mg Vancomycin/Sodium Chloride (Vancomycin 1 Gm/Ns 200 Ml) 1 gm in 200 mls @ 133.333 mls/hr IVPB Q12H [facility] PRN Reason: Protocol Last Admin: 07/26/17 09:52 Dose: 133.333 mls/hr Sodium Chloride (Sodium Chloride 0.9%) 1,000 mls @ 100 mls/hr IV .Q10H [facility] Last Admin: 07/26/17 06:12 Dose: Not Given Loperamide HCl (Imodium) 2 mg PO QID PRN PRN Reason: Diarrhea Last Admin: 07/26/17 09:51 Dose: 2 mg Morphine Sulfate (Morphine) 2 mg IVP Q4 PRN PRN Reason: Pain, severe (8-10) Last Admin: 07/25/17 08:37 Dose: 2 mg Mupirocin (Bactroban Ointment) 1 gm TOP DAILY PRN PRN Reason: Other Saccharomyces Boulardii (Florastor) 250 mg PO BID [facility] Last Admin: 07/26/17 09:51 Dose: 250 mg Tramadol HCl (Ultram) 50 mg PO Q8 PRN PRN Reason: Pain, severe (8-10) Last Admin: 07/25/17 13:17 Dose: 50 mg Vancomycin HCl (Vancocin (Oral Or Rectal Use)) 125 mg PO QID [facility] PRN Reason: Protocol Last Admin: 07/26/17 13:12 Dose: 125 mg - Labs Labs: 07/24/17 09:03 07/24/17 09:03 - Constitutional Appears: Well, Non-toxic, No Acute Distress - Extremities Exam Additional comments: VASC: pedal pulses are fully palpable, skin temp runs warm to warm with increased calor noted to anterior distal leg and dorsal-medial foot, minor non- pitting edema noted to dorsal-medial midfoot NEURO: gross and protective pedal sensation are intact DERM: Superficial ulceration noted to medial ankle measures 3.8 x1.5.x with mixture fibro-granular base with macerated margin. No noemy-wound erythema noted. No fluctuance noted, no mal-odor or drainage noted. No other clinical signs of infection noted at this time. 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 Rodrigues Charts, labs, vitals reviewed Continue IV abx per ID Continue medical management per medicine team Ceretec bone scan - negative for acute OM in foot Wound dressed with bactorban, xeroform, DSD No plan for further surgical intervention at this time Patient to follow up with Dr. Rodrigues upon discharge Podiatry will continue to follow while patient in house
[2017-07-27 08:15] VITALS: O2SAT 95
[2017-07-27] MEDS: Saccharomyces Boulardi 250 mg Cap PO SCH ×2 (10:29→17:06)
[2017-07-27] MEDS: Emtricitabine-Tenofovir 200 mg-300 mg Tab PO SCH (10:31)
[2017-07-27] MEDS: Vancomycin 125 MG/5 ML SOLN (ORAL/RECTAL) PO SCH ×4 (10:31→21:03)
[2017-07-27] MEDS: Vancomycin 1 gm/NS 200 ml 1 GM/200 ML BAG IVPB SCH (10:32)
--- NOTE | 2017-07-27 10:57 | CP.PCM.PN ---
<Lindsay Davis - Last Filed: 07/27/17 14:54> Subjective - Date & Time of Evaluation Date of Evaluation: 07/27/17 Time of Evaluation: 10:48 - Subjective Subjective: PGy2 progress note for Dr. Juarez Pt seen and examined at bedside. No acute events overnight. Pt is resting comfortably. Denies having pain in her LE bilaterally currently. Pt states that this morning, she had an episode of vomiting. No blood in vomit. Denies having any nausea currently, no abd pain. Pt states diarrhea has improved and she is tolerating PO intake. denies having any F/C, CP, SOB. Objective - Vital Signs/Intake and Output Vital Signs (last 24 hours): Temp Pulse Resp BP Pulse Ox 98.2 F 78 20 117/75 95 07/27/17 07:14 07/27/17 07:14 07/27/17 07:14 07/27/17 07:14 07/27/17 07:14 Intake and Output: 07/27/17 07/27/17 06:59 18:59 Intake Total 1600 Balance 1600 - Medications Medications: Current Medications Acetaminophen (Tylenol 325mg Tab) 650 mg PO Q6 PRN PRN Reason: Fever >100.4 F Last Admin: 07/25/17 08:37 Dose: 650 mg Dolutegravir Sodium (Tivicay) 50 mg PO DAILY [facility] PRN Reason: Protocol Last Admin: 07/27/17 10:31 Dose: 50 mg Emtricitabine/Tenofovir (Truvada 200 Mg-300 Mg) 1 tab PO DAILY [facility] PRN Reason: Protocol Last Admin: 07/27/17 10:31 Dose: 1 tab Enoxaparin Sodium (Lovenox) 40 mg SC DAILY [facility] Last Admin: 07/23/17 09:05 Dose: 40 mg Hydrocortisone (Anusol-Hc) 0 gm NV BID [facility] Last Admin: 07/26/17 17:36 Dose: 1 applic Hydromorphone HCl (Dilaudid) 4 mg PO Q4H PRN PRN Reason: Pain, severe (8-10) Last Admin: 07/27/17 10:30 Dose: 4 mg Vancomycin/Sodium Chloride (Vancomycin 1 Gm/Ns 200 Ml) 1 gm in 200 mls @ 133.333 mls/hr IVPB Q12H [facility] PRN Reason: Protocol Last Admin: 07/27/17 10:32 Dose: 133.333 mls/hr Loperamide HCl (Imodium) 2 mg PO QID PRN PRN Reason: Diarrhea Last Admin: 07/26/17 09:51 Dose: 2 mg Mupirocin (Bactroban Ointment) 1 gm TOP DAILY PRN PRN Reason: Other Saccharomyces Boulardii (Florastor) 250 mg PO BID [facility] Last Admin: 07/27/17 10:29 Dose: 250 mg Tramadol HCl (Ultram) 50 mg PO Q8 PRN PRN Reason: Pain, severe (8-10) Last Admin: 07/25/17 13:17 Dose: 50 mg Vancomycin HCl (Vancocin (Oral Or Rectal Use)) 125 mg PO QID [facility] PRN Reason: Protocol Last Admin: 07/27/17 10:31 Dose: 125 mg - Labs Labs: 07/24/17 09:03 07/24/17 09:03 - Constitutional Appears: Non-toxic, No Acute Distress - Head Exam Head Exam: ATRAUMATIC - ENT Exam ENT Exam: Mucous Membranes Moist - Respiratory Exam Respiratory Exam: Clear to Ausculation Bilateral, NORMAL BREATHING PATTERN. absent: Accessory Muscle Use, Rales, Rhonchi, Wheezes - Cardiovascular Exam Cardiovascular Exam: REGULAR RHYTHM, +S1, +S2. absent: Gallop, Rubs, Murmur - GI/Abdominal Exam GI & Abdominal Exam: Soft, Normal Bowel Sounds. absent: Distended, Firm, Guarding, Rigid, Tenderness, Organomegaly - Extremities Exam Extremities Exam: absent: Pedal Edema, Tenderness - Neurological Exam Neurological Exam: Alert, Awake, Oriented x3 - Psychiatric Exam Psychiatric exam: Normal Affect, Normal Mood - Skin Skin Exam: Dry, Intact, Normal Color, Warm Assessment and Plan - Assessment and Plan (Free Text) Assessment: Osteomyelitis Ceretec scan was negative for acute osteo Currently on vancomycin 1gm IV Pain management with Dilaudid, Ultram prn xrays unremarkable RLE bone scan (04/03/17): + OM tarsal bones and medial ankle (completed 6 weeks IV abx) Dr. Rodrigues, podiatry, consulted- help appreciated. Recommend continuing local wound care. No plan for surgical intervention at this point Dr. Peck, ID, consulted- help appreciated Diarrhea Resolved c. diff negative Stool cultures are negative patient on PO vancomycin 125mg PO QID Imodium prn Hemorrhoidal bleed Resolved heme occult positive stool lovenox held due to hemoglobin drop. 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 Juarez Patient is stable for discharge to rehab facility. Patient will continue IV vancomycin 1 gm Q12H for 2 more weeks (stop date 08/09/17 ). She will continue PO vancomycin 125 mg po QID for 1 more day (stop date 07/28). <Gill Juarez S - Last Filed: 07/27/17 19:45> Objective - Vital Signs/Intake and Output Vital Signs (last 24 hours): Temp Pulse Resp BP Pulse Ox 98.3 F 80 18 101/68 95 07/27/17 15:00 07/27/17 15:00 07/27/17 15:00 07/27/17 15:00 07/27/17 15:00 Intake and Output: 07/27/17 07/28/17 18:59 06:59 Intake Total 1200 Balance 1200 - Medications Medications: Current Medications Acetaminophen (Tylenol 325mg Tab) 650 mg PO Q6 PRN PRN Reason: Fever >100.4 F Last Admin: 07/25/17 08:37 Dose: 650 mg Dolutegravir Sodium (Tivicay) 50 mg PO DAILY [facility] PRN Reason: Protocol Last Admin: 07/27/17 10:31 Dose: 50 mg Emtricitabine/Tenofovir (Truvada 200 Mg-300 Mg) 1 tab PO DAILY [facility] PRN Reason: Protocol Last Admin: 07/27/17 10:31 Dose: 1 tab Enoxaparin Sodium (Lovenox) 40 mg SC DAILY [facility] Last Admin: 07/23/17 09:05 Dose: 40 mg Hydrocortisone (Anusol-Hc) 0 gm [place] BID [facility] Last Admin: 07/27/17 17:07 Dose: 1 applic Hydromorphone HCl (Dilaudid) 4 mg PO Q4H PRN PRN Reason: Pain, severe (8-10) Last Admin: 07/27/17 15:41 Dose: 4 mg Vancomycin/Sodium Chloride (Vancomycin 1 Gm/Ns 200 Ml) 1 gm in 200 mls @ 133.333 mls/hr IVPB Q12H [facility] PRN Reason: Protocol Last Admin: 07/27/17 10:32 Dose: 133.333 mls/hr Loperamide HCl (Imodium) 2 mg PO QID PRN PRN Reason: Diarrhea Last Admin: 07/26/17 09:51 Dose: 2 mg Mupirocin (Bactroban Ointment) 1 gm TOP DAILY PRN PRN Reason: Other Saccharomyces Boulardii (Florastor) 250 mg PO BID [facility] Last Admin: 07/27/17 17:06 Dose: 250 mg Tramadol HCl (Ultram) 50 mg PO Q8 PRN PRN Reason: Pain, severe (8-10) Last Admin: 07/25/17 13:17 Dose: 50 mg Vancomycin HCl (Vancocin (Oral Or Rectal Use)) 125 mg PO QID [facility] PRN Reason: Protocol Last Admin: 07/27/17 17:06 Dose: 125 mg - Labs Labs: 07/27/17 13:43 07/27/17 13:43 Assessment and Plan (1) Sepsis Status: Acute Attending/Attestation - Attestation I have personally seen and examined this patient.: Yes I have fully participated in the care of the patient.: Yes I have reviewed all pertinent clinical information, including history, physical exam and plan: Yes Notes (Text): As ordered Ceretec scan negative IV antibiotic Transferred to care case seen and d.w staff and resident, concurred with finding and management..
--- NOTE | 2017-07-27 12:40 | PCM.SURG1 ---
Surgeon's Initial Post Op Note - Surgeon's Notes Surgeon: Zackery Montoya MD Teacher Selection Specialist: None Type of Anesthesia: Local Pre-Operative Diagnosis: infection Operative Findings: patent right basilic vein. catheter length: 37 cm. catheter tip: cavoatrial junction Post-Operative Diagnosis: same Operation Performed: RUE PICC Insertion Specimen/Specimens Removed: n/a Estimated Blood Loss: EBL {In ML}: 0 Date of Surgery/Procedure: 07/27/17 Time of Surgery/Procedure: 12:30
[2017-07-27 13:58] LABS: BASO % 0.3 % (0.0-2.0); HEMOGLOBIN 9.1 g/dL (11.0-16.0); LYMPH # 0.7 K/uL (1.0-4.3); LYMPH % 10.9 % (20.0-40.0); MEAN CELL VOLUME 79.7 fL (81.0-99.0); MEAN CORPUSCULAR HEMOGLOBIN 26.1 pg (27.0-31.0); MEAN CORPUSCULAR HGB CONC 32.8 g/dL (33.0-37.0); MEAN PLATELET VOLUME 8.1 fL (7.2-11.7); MONO # 0.2 K/uL (0.0-0.8); MONO % 2.8 % (0.0-10.0); NEUT # 5.6 K/uL (1.8-7.0); RBC 3.49 Mil/uL (3.80-5.20); RED CELL DISTRIBUTION WIDTH 15.6 % (11.5-14.5); WHITE BLOOD COUNT 6.5 K/uL (4.8-10.8)
--- NOTE | 2017-07-27 14:05 | US ---
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 COMPARISON: None. PROCEDURE: 1. Focused ultrasound of the right upper extremity vasculature. 2. Ultrasound-guided access. 3. Insertion of peripherally inserted central venous catheter. 4. Fluoroscopic localization of catheter tip. PRE-PROCEDURE FINDINGS: 1. Patent right basilic vein. POST-PROCEDURE FINDINGS: 1. Placement of 4 Ukrainian single-lumen PICC. 2. Catheter length: 37 cm. 3. Catheter tip at cavoatrial junction. INTERVENTIONAL RADIOLOGIST: Zackery Montoya M.D. (the attending was present for the entire procedure) ANESTHESIA: None. MEDICATION: Lidocaine 1% for local subcutaneous analgesia. COMPLICATIONS: None. RADIATION DOSE: Fluoroscopy Time: 56.2 seconds Cumulative Dose: [id number] mGym2 PROCEDURE DESCRIPTION AND FINDINGS: The risks, benefits, alternatives and possible complications of the procedure were fully discussed; all questions were answered and informed consent was obtained. The patient was brought into the interventional suite and a pre-procedure 'time-out' was performed. The patient was placed on the fluoroscopy table in the supine position. The right upper extremity was prepped and draped in the usual sterile fashion. Maximum sterile barrier precautions were maintained throughout the entire procedure. Preliminary ultrasound images of the right upper extremity vasculature demonstrate patency of the right basilic vein. Following subcutaneous infiltration of 1% lidocaine for local analgesia, under ultrasound guidance, a 21-gauge needle was advanced into the right basilic vein with real-time visualization of needle entry. The ultrasound images were permanently recorded and submitted to the PACS. A 0.018 guidewire was advanced centrally to the cavoatrial junction. A 4.5 Ukrainian peel-away sheath was advanced over the guidewire. After obtaining length measurement, a 4 Ukrainian single-lumen PICC was placed with the tip of the catheter at the cavoatrial junction. The total length of the catheter is 37 cm. The hub of the PICC was secured to the skin using a sterile adhesive bandage. The patient tolerated the procedure well without immediate post-procedure complications and was transferred back to the floor in stable condition. IMPRESSION: SUCCESSFUL INSERTION OF RIGHT UPPER EXTREMITY PICC. PICC OK TO USE.
[2017-07-27 14:14] LABS: ALB/GLOB RATIO 0.7 (1.0-2.1); ALBUMIN 3.6 g/dL (3.5-5.0); ALT/SGPT 15 U/L (9-52); AST/SGOT 23 U/L (14-36); BLOOD UREA NITROGEN 9 mg/dL (7-17); CALCIUM 8.7 mg/dl (8.6-10.4); GFR AFRICAN-AMERICAN > 60; GFR NON-AFRICAN AMERICAN > 60
[2017-07-27 16:43] VITALS: BP 101/68; PULSE 80; RESP 18; TEMP 98.3
[2017-07-27] MEDS: Hydrocortisone 2.5% Rectal Cream(30 gm) PR SCH (17:07)
--- NOTE | 2017-07-27 18:34 | CP.PCM.PN ---
Subjective - Date & Time of Evaluation Date of Evaluation: 07/27/17 Time of Evaluation: 07:40 - Subjective Subjective: clinically same Objective - Vital Signs/Intake and Output Vital Signs (last 24 hours): Temp Pulse Resp BP Pulse Ox 98.3 F 80 18 101/68 95 07/27/17 15:00 07/27/17 15:00 07/27/17 15:00 07/27/17 15:00 07/27/17 15:00 Intake and Output: 07/27/17 07/27/17 06:59 18:59 Intake Total 1600 1200 Balance 1600 1200 - Medications Medications: Current Medications Acetaminophen (Tylenol 325mg Tab) 650 mg PO Q6 PRN PRN Reason: Fever >100.4 F Last Admin: 07/25/17 08:37 Dose: 650 mg Dolutegravir Sodium (Tivicay) 50 mg PO DAILY [facility]ADD PRN Reason: Protocol Last Admin: 07/27/17 10:31 Dose: 50 mg Emtricitabine/Tenofovir (Truvada 200 Mg-300 Mg) 1 tab PO DAILY CHADD PRN Reason: Protocol Last Admin: 07/27/17 10:31 Dose: 1 tab Enoxaparin Sodium (Lovenox) 40 mg SC DAILY [facility] Last Admin: 07/23/17 09:05 Dose: 40 mg Hydrocortisone (Anusol-Hc) 0 gm NM BID [facility] Last Admin: 07/27/17 17:07 Dose: 1 applic Hydromorphone HCl (Dilaudid) 4 mg PO Q4H PRN PRN Reason: Pain, severe (8-10) Last Admin: 07/27/17 15:41 Dose: 4 mg Vancomycin/Sodium Chloride (Vancomycin 1 Gm/Ns 200 Ml) 1 gm in 200 mls @ 133.333 mls/hr IVPB Q12H [facility]ADD PRN Reason: Protocol Last Admin: 07/27/17 10:32 Dose: 133.333 mls/hr Loperamide HCl (Imodium) 2 mg PO QID PRN PRN Reason: Diarrhea Last Admin: 07/26/17 09:51 Dose: 2 mg Mupirocin (Bactroban Ointment) 1 gm TOP DAILY PRN PRN Reason: Other Saccharomyces Boulardii (Florastor) 250 mg PO BID [facility] Last Admin: 07/27/17 17:06 Dose: 250 mg Tramadol HCl (Ultram) 50 mg PO Q8 PRN PRN Reason: Pain, severe (8-10) Last Admin: 07/25/17 13:17 Dose: 50 mg Vancomycin HCl (Vancocin (Oral Or Rectal Use)) 125 mg PO QID [facility]ADD PRN Reason: Protocol Last Admin: 07/27/17 17:06 Dose: 125 mg - Labs Labs: 07/27/17 13:43 07/27/17 13:43 - Constitutional Appears: Well - Head Exam Head Exam: ATRAUMATIC, NORMAL INSPECTION, NORMOCEPHALIC - Eye Exam Eye Exam: EOMI, Normal appearance, PERRL Pupil Exam: NORMAL ACCOMODATION, PERRL - ENT Exam ENT Exam: Mucous Membranes Moist, Normal Exam - Neck Exam Neck Exam: Full ROM, Normal Inspection. absent: Lymphadenopathy - Respiratory Exam Respiratory Exam: Decreased Breath Sounds - Cardiovascular Exam Cardiovascular Exam: REGULAR RHYTHM, +S1, +S2 - GI/Abdominal Exam GI & Abdominal Exam: Soft, Diminished Bowel Sounds - Rectal Exam Rectal Exam: Deferred Assessment and Plan (1) Sepsis Status: Acute - Assessment and Plan (Free Text) Plan: Osteomyelitis Ceretec scan was negative for acute osteo Currently on vancomycin 1gm IV Pain management with Dilaudid, Ultram prn xrays unremarkable RLE bone scan (04/03/17): + OM tarsal bones and medial ankle (completed 6 weeks IV abx) Dr. Rordigues, podiatry, consulted- help appreciated. Recommend continuing local wound care. No plan for surgical intervention at this point Dr. Peck, [facility], consulted- help appreciated Diarrhea Resolved c. diff negative Stool cultures are negative patient on PO vancomycin 125mg PO QID Imodium prn Hemorrhoidal bleed Resolved heme occult positive stool lovenox held due to hemoglobin drop. 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 Peck, [facility], following- help appreciated Prophylactic measure florastor probiotic holding lovenox due to occult blood positive stool PT eval tail worker eval for HIV medications and discharge planning All management as per Dr. Juarez Patient is stable for discharge to rehab facility. Patient will continue IV vancomycin 1 gm Q12H for 2 more weeks (stop date 08/09/17 ). She will continue PO vancomycin 125 mg po QID for 1 more day (stop date 07/28).
== END 2017-07-27 21:40 | DRG 975 ==
LOC: C.ER 11:02 → C.9E 12:27 → C.3T 12:49 → C.5S 07-20 11:54
PROVIDERS: ADMIT Internal Medicine Nephrology; ATTEND Internal Medicine Nephrology
PROC: 02HV33Z Insertion of Infusion Device into Superior Vena Cava, Percutaneous Approach (ICD-10-PCS; principal; 2017-07-27)
DX: B20 Human immunodeficiency virus [HIV] disease (principal); A41.9 Sepsis, unspecified organism; L03.115 Cellulitis of right lower limb; M86.671 Other chronic osteomyelitis, right ankle and foot; L97.329 Non-pressure chronic ulcer of left ankle with unspecified severity; F17.210 Nicotine dependence, cigarettes, uncomplicated; E86.0 Dehydration; K64.9 Unspecified hemorrhoids; Z87.01 Personal history of pneumonia (recurrent); Z91.19 Patient's noncompliance with other medical treatment and regimen; F41.9 Anxiety disorder, unspecified; F11.90 Opioid use, unspecified, uncomplicated; J44.9 Chronic obstructive pulmonary disease, unspecified